=== PATIENT | female | born 1985 | race Caucasian/White ===

== ENCOUNTER 2022-12-31 11:25 | Emergency (ER) | payer OTHER, SELFPAY ==
--- NOTE | ~2022-12-31 | XR_ITS ---
EXAMINATION: XR SHOULDER, LEFT CLINICAL INFORMATION: Left shoulder pain. COMPARISON: None TECHNIQUE: AP, Grashey, and scapular Y views of the left shoulder. FINDINGS: No acute fracture or dislocation. No joint space narrowing or marginal osteophytes. No osseous erosion. No abnormal soft tissue calcification. XR/XR shoulder LT min 2V IMPRESSION: Unremarkable examination.
--- NOTE | 2022-12-31 11:30 | ED.NECK ---
HPI - Neck Pain/Injury General Chief Complaint: Extremity Injury, Upper <RAVI Cuenca Last Filed: 12/31/22 11:51> Stated Complaint: L shoulder pain no inj <ARVI Cuenca - Last Filed: 12/31/22 11:51> Time Seen by Provider: 12/31/22 11:49 <RAVI Cuenca Last Filed: 12/31/22 11:51> History of Present Illness HPI Narrative: Patient complains of left trapezius left shoulder and left-sided neck pain radiating down to her fingers intermittently with tingling and pain but no loss of sensation no muscle weakness, no trauma associated no chest pain no shortness of breath no dizziness or weakness no fainting or feeling faint, , no changes to bowel or bladder no dizziness no weakness no headache <RAVI Osman Last Filed: 01/02/23 11:44> Related Data Home Medications: Previous Rx's Medication Instructions Recorded acetaminophen 500 mg capsule 1,000 mg PO Q8H PRN pain #30 caps 12/31/22 cyclobenzaprine 5 mg tablet 5 mg PO TID PRN muscle spasm #10 12/31/22 tabs ibuprofen 600 mg tablet 600 mg PO Q6H PRN pain #20 tabs 12/31/22 oxycodone 5 mg tablet 5 mg PO Q6H PRN pain #10 tabs 12/31/22 prednisone 20 mg tablet 60 mg PO DAILY 4 days #12 tabs 12/31/22 <RAVI Cuenca - Last Filed: 12/31/22 11:51> Allergies/Adverse Reactions: Allergies Allergy/AdvReac Type Severity Reaction Status Date / Time No Known Allergies Allergy Verified 12/31/22 11:31 <RAVI Cuenca Last Filed: 12/31/22 11:51> FOR[facility], LATER [facility] Past Medical History Source: nursing notes reviewed <RAVI Osman - Last Filed: 01/02/23 11:44> Social History Social History: Social History Advance Directives: No Advance Directives Information Provided: No <RAVI Cuenca Last Filed: 12/31/22 11:51> Physical Exam Vital Signs: Vital Signs: Last Vital Signs Temp 98.2 F 12/31/22 11:31 Pulse 82 12/31/22 11:31 Resp 16 12/31/22 11:31 BP 144/79 H 12/31/22 11:31 Pulse Ox 98 12/31/22 11:31 O2 Del Method 12/31/22 11:31 BMI result Body Mass Index 24.2 <RAVI Cuenca - Last Filed: 12/31/22 11:51> Vital Signs: Last Vital Signs Temp 98.2 F 12/31/22 11:31 Pulse 82 12/31/22 11:31 Resp 16 12/31/22 11:31 BP 144/79 H 12/31/22 11:31 Pulse Ox 98 12/31/22 11:31 O2 Del Method 12/31/22 11:31 BMI result Body Mass Index 24.2 <RAVI Osman - Last Filed: 01/02/23 11:44> General appearance is no acute distress comfortable cooperative Head is normocephalic atraumatic The neck had left-sided lateral neck soft tissue tenderness, no focal bony tenderness, there was full range of motion, but some discomfort with lateral motion The left trapezius was very tender The chest was clear to auscultation bilateral, no chest wall tenderness Heart no murmur Lungs were clear to auscultation bilateral with full symmetric equal breath sounds, no respiratory distress Abdomen soft nontender The back there was some left posterior trapezius tenderness, other was back was normal range of motion, skin was normal, no bony tenderness Extremities full range of motion x4 Skin no rash Neuro no focal motor sensory deficits, 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 Denies injury/trauma or fall. Denies CP/SOB or weakness +L trapezius muscle ttp on exam with neck stiffness, no midline ttp. NV intact distally. No meningeal signs Patient will need pain control <RAVI Cuenca - Last Filed: 12/31/22 11:51> RME--37yo F w/no sig PMHx c/o L neck pain x2.5 weeks. Denies injury/trauma or fall. Denies CP/SOB or weakness +L trapezius muscle ttp on exam with neck stiffness, no midline ttp. NV intact distally. No meningeal signs Patient will need pain control Patient had left shoulder x-ray which was negative Symptoms are likely from pinched nerve in the neck and she is started on prednisone and analgesics and will follow with her doctor, she had no focal neurologic deficit no change to bowel or bladder and was discharged ambulating easily and comfortable <RAVI Osman - Last Filed: 01/02/23 11:44> Medications Administered Discontinued Medications Generic Name Dose Route Start Last Admin Trade Name Freq PRN Reason Stop Dose Admin Ibuprofen 600 mg 12/31/22 14:08 12/31/22 14:20 Ibuprofen 600 Mg Tablet PO 12/31/22 14:09 600 mg ONCE ONE Administration Prednisone 60 mg 12/31/22 14:08 12/31/22 14:20 Prednisone 20 Mg Tablet PO 12/31/22 14:09 60 mg ONCE ONE Administration <RAVI Cuenca - Last Filed: 12/31/22 11:51> Medications Administered Discontinued Medications Generic Name Dose Route Start Last Admin Trade Name Freq PRN Reason Stop Dose Admin Ibuprofen 600 mg 12/31/22 14:08 12/31/22 14:20 Ibuprofen 600 Mg Tablet PO 12/31/22 14:09 600 mg ONCE ONE Administration Prednisone 60 mg 12/31/22 14:08 12/31/22 14:20 Prednisone 20 Mg Tablet PO 12/31/22 14:09 60 mg ONCE ONE Administration <RAVI Osman - Last Filed: 01/02/23 11:44> Discharge Plan Discharge Clinical Impression: Cervical radiculopathy <RAVI Cuenca - Last Filed: 12/31/22 11:51> Patient Disposition: Home, Self-Care <RAVI Cuenca - Last Filed: 12/31/22 11:51> Additional Instructions: X-ray of the shoulder was totally normal The pain is likely from a pinched nerve on the left side of her neck which sometimes sense pain and tingling down her arm Prednisone, steroid, sometimes reduce inflammation around the nerve and improves the pain Follow with primary doctor for possible physical therapy or MRI in the future if it does not get better Return any time any worse condition or any concerns <RAVI Cuenca - Last Filed: 12/31/22 11:51> Prescriptions: New prednisone 20 mg tablet 60 mg PO DAILY 4 Days Qty: 12 0RF ibuprofen 600 mg tablet 600 mg PO Q6H PRN (Reason: pain) Qty: 20 0RF acetaminophen 500 mg capsule 1,000 mg PO Q8H PRN (Reason: pain) Qty: 30 0RF oxycodone 5 mg tablet 5 mg PO Q6H PRN (Reason: pain) Qty: 10 0RF Rx Instructions: Partial Fill upon patient request. cyclobenzaprine 5 mg tablet 5 mg PO TID PRN (Reason: muscle spasm) Qty: 10 0RF <RAVI Cuenca - Last Filed: 12/31/22 11:51> Interventions: ED Discharge Assessment Last Done: 12/31/22 14:21 <RAVI Cuenca - Last Filed: 12/31/22 11:51> Discharge Date/Time: 12/31/22 14:22 <RAVI Cuenca - Last Filed: 12/31/22 11:51>
[2022-12-31 11:31] VITALS: BP 144/79; PULSE 82; RESP 16; TEMP 36.8; O2SAT 98; BMI 24.2
--- NOTE | 2022-12-31 11:44 | PC.NURSE ---
pt presents with pain in left shoulder, no injury per pt wa dx with CRPS in 2010 and noticed pain in her shoulder while driving. CMS in tact. a&o x4 NAD
[2022-12-31] MEDS: Ibuprofen 600 MG TABLET PO (14:20)
[2022-12-31] MEDS: predniSONE 20 MG TABLET 60 MG PO (14:20)
== END 2022-12-31 14:22 | disposition home or self-care (01) ==
PROVIDERS: Emergency Provider Emergency Medicine
DX: M54.12 Radiculopathy, cervical region (principal); M25.512 Pain in left shoulder
CPT/HCPCS: 73030; 99283

== ENCOUNTER 2023-06-22 16:53 | Emergency (ER) | payer OTHER, SELFPAY ==
--- NOTE | 2023-06-22 | ECG_ITS ---
Test Reason : ?STROKE Blood Pressure : / mmHG Vent. Rate : 066 BPM Atrial Rate : 066 BPM P-R Int : 158 ms QRS Dur : 090 ms QT Int : 388 ms P-R-T Axes : 050 021 013 degrees QTc Int : 406 ms Normal sinus rhythm Low voltage QRS Borderline ECG When compared with ECG of 20-NOV-2008 10:02, Premature ventricular complexes are no longer Present Referred By: Generic ED Physician Electronically Signed By:NIGEL MADRID
--- NOTE | ~2023-06-22 | CT_ITS ---
EXAMINATION: CT HEAD WITHOUT CONTRAST CLINICAL INFORMATION: Dizziness. Syncope. Prior CVA. COMPARISON: None available. TECHNIQUE: Contiguous axial imaging was performed from the skull base to vertex without intravenous administration of contrast. This CT examination was performed using dose optimization techniques as appropriate, variously including the following: *Automated exposure control *Adjustment of mA and/or kV according to patient size (this includes techniques or standardized protocols for targeted exams where dose is matched to indication/reason for exam; i.e. extremities or head) *Use of iterative reconstruction technique DLP: 589 mGy-cm FINDINGS: No acute intracranial hemorrhage. No mass effect or midline shift. No parenchymal lesion. The oquendo-white differentiation is maintained. No extra-axial fluid collection. The ventricles and sulci are unremarkable. The basal cisterns are patent. The calvarium is intact. The visualized paranasal sinuses and mastoid air cells are clear. CT/CT head/brain wo IV con IMPRESSION: No acute intracranial hemorrhage or mass effect.
[2023-06-22 16:56] VITALS: BP 116/67; PULSE 63; O2SAT 100
[2023-06-22 17:06] VITALS: BP 100/62; PULSE 96; RESP 16; TEMP 36.8; O2SAT 96; BMI 33.2
--- OUTSIDE RECORDS SUMMARY | 2023-06-22 17:18 | XMS_ITS | Continuity of Care Document ---
Author Name Unknown Organization [facility] ter Address [address] [place] [id number]- Care Team Providers Care Classified Advertising Manager Name Role Phone Petrona Mosher MD Primary Care Physician Encounter [facility] Date(s): 10/12/21 - 11/21/[address] [id number] Attending Physician: Dewey Ordaz MD Admitting Physician: Dewey Ordaz MD Referring Physician: Severino Red MD Allergies, Adverse Reactions, Alerts Substance Reaction Severity Status cephalexin 1 headaches,memory loss Active lamoTRIgine memory loss FINCH Active 1rash Immunizations Given and Recorded Vaccine Date Status Refusal Reason influenza virus vaccine, inactivated 08/13/21 Give n influenza virus vaccine, inactivated 01/17/16 Give n influenza virus vaccine, inactivated 07/20/13 Give n influenza virus vaccine, inactivated 1 09/20/12 Gi valeria influenza virus vaccine, inactivated 2 08/13/11 Gi valeria influenza virus vaccine, inactivated 3 08/30/08 Gi valeria SARS-CoV-2 (COVID-19) mRNA BNT-162b2 vac 03/12/21 Recorded SARS-CoV-2 (COVID-19) mRNA BNT-162b2 vac 02/19/21 Recorded pneumococcal 23-valent vaccine 02/20/14 Given hepatitis B adult vaccine 4 06/14/13 Given hepatitis B adult vaccine 5 12/10/12 Given hepatitis B adult vaccine 6 10/01/12 Given tetanus/diphtheria/pertussis, acel(Tdap) 7 08/13/11 Given Human Papillomavirus Vaccine 8 11/21/08 Given 1Admin Note: VIS 04/19/12 2Admin Note: VIS given 05/13/11 3Admin Note: VIS GIVEN 4Admin Note: VIS 11/30 5Admin Note: VIS 11/30 6Admin Note: VIS GIVEN 11/20/2011 7Admin Note: VIS given, 08/2008 8Admin Note: VIS Medications Acetaminophen = 500 mg, By Mouth, Every 6 hours, PRN as needed for fever, 0 Refills, Acute, 12/07/19 8:11:00 EST Start Date: 12/07/19 Status: Ordered bed pads disposable bed pads disposable, See Instructions, # 150 each, Refills 11, Tot. Refills 11, Maintenance, use for urinary incontinence five times daily d/t paralysis, spinal cord disease, 04/05/21 9:57:00 EDT, Supply Start Date: 04/05/21 Status: Ordered Cannabis (Schedule I Substance) 0 Refills, Maintenance, 07/25/20 14:34:00 EDT Start Date: 07/25/20 Status: Ordered Controlled substance agreement Controlled substance agreement, See Instructions, # 1 each, Refills 0, Tot. Refills 0, Maintenance,controlled substance agreement signed 12.13.2019; preferred pharm: [facility], 12/13/19 13:32:00 EST, Compound, 166, cm, 12/13/19 12:42:00 EST, He... Start Date: 12/13/19 Status: Ordered FLUoxetine 20 mg oral capsule 20 mg, 1, capsule, By Mouth, Daily, # 30 capsule, Refills 0, Maintenance, 01/11/21 15:03:00 EDT, Partial fill upon patient request if the prescription is for a schedule II opioid drug. Start Date: 01/11/21 Status: Ordered gabapentin 600 mg oral tablet 2 tablet = 1,200 mg, By Mouth, 3 times a day, # 180 tablet, 5 Refills, Maintenance, 08/06/21 8:30:00 EDT, Tablet, [id number], Partial fill upon patient request if the prescription is for aschedule II opioid drug., 150, cm, 07/23/21 22:44:0... Start Date: 08/06/21 Stop Date: 02/02/22 Status: Ordered lidocaine 5% topical ointment 1 application, Topically, 3 times a day, # 50 Gm, 2 Refills, Maintenance, 09/19/21 14:33:00 EST, Ointment, [id number], Partial fill upon patient request if the prescription is for a schedule II opioid drug., 1 application Topically 3 times... Start Date: 09/19/21 Status: Ordered methadone 5 mg oral tablet See Instructions, 1 tab PO in AM 2 tabs in Afternoon and 1 tab @ HS for pain, # 112 tablet, 0 Refills, Maintenance, 11/01/21 11:10:00 EST, Tablet, [id number], Partial fill upon patient request., 11/02/21, 150, cm, 10/02/21 13:09:00 EST, Hei... Start Date: 11/01/21 Status: Ordered naloxone 4 mg/0.1 mL nasal spray = 4 mg, Naris, Left, Once, may repeat every 2 to 3 minutes until patient responds, # 2 each, 0 Refills, Soft Stop, 12/13/19 13:32:00 EST, [id number], 166, cm, 12/13/19 12:42:00 EST, Height, 82.6, kg, 07/05/18 18:39:00 EDT, Dry Weight Start Date: 12/13/19 Status: Ordered Oxybutynin = 15 mg, By Mouth, Daily, 0 Refills, Maintenance, 11/09/20 12:52:00 EST, Partial fill upon patient request if the prescription is for a schedule II opioid drug. Start Date: 11/09/20 Status: Ordered Pantiliners Pantiliners, See Instructions, # 240 each, Refills 11, Tot. Refills 11, Maintenance, Max 8 per day;Dx: urinary incontinence; R32, 08/23/21 10:39:00 EDT, Supply Start Date: 08/23/21 Status: Ordered raised toilet seat raised toilet seat, See Instructions, # 1 each, Refills 0, Tot. Refills 0, Maintenance, use to enable ADLs d/t central pain syndrome, paralysis,peripheral neuropathic pain, spinal cord disease, 04/05/21 9:56:00 EDT, Supply Start Date: 04/05/21 Status: Ordered Shower Bar See Instructions, # 1 each, Maintenance, use to enable ADLs d/t central pain syndrome, paralysis,peripheral neuropathic pain, spinal cord disease, 04/05/21 9:55:00 EDT, Supply Start Date: 04/05/21 Status: Ordered Shower Chair Shower Chair, See Instructions, # 1 each, Refills 0, Tot. Refills 0, Maintenance, Height: 150cm, Weight: 75kg; Dx: Myelopathy, Leg weakness, Leg pain; G95.9, R53.1, M79.606; Lifetime need., 08/23/21 10:33:00 EDT, Supply Start Date: 08/23/21 Status: Ordered Shower Chair See Instructions, # 1 each, Maintenance, use to enable ADLs d/t central pain syndrome, paralysis,peripheral neuropathic pain, spinal cord disease, 04/05/21 9:55:00 EDT, Supply Start Date: 04/05/21 Status: Ordered soft brace for left foot drop soft brace for left foot drop, See Instructions, # 1 each, Refills 0, Tot. Refills 0, Maintenance, soft brace for left foot drop, 01/24/21 15:19:00 EDT, Supply, 149.9, cm, 01/18/21 8:52:00 EDT, Height, 68.3, kg, 01/18/21 8:52:00 EDT, Dry Weight Start Date: 01/24/21 Status: Ordered TENS unit TENS unit, See Instructions, # 1 each, Refills 0, Tot. Refills 0, Maintenance, chronic, severe low back pain ICD M54, 09/19/21 14:45:00 EST, Supply Start Date: 09/19/21 Status: Ordered tiZANidine 2 mg oral capsule 1 capsule, By Mouth, 3 times a day, PRN NEEDED FOR MUSCLE SPASM, # 90 capsule, 5 Refills, Maintenance, 04/08/21 11:01:00 EDT, [id number], 149.9, cm, 03/27/21 13:01:00 EDT, Height, 68.3, kg, 01/18/21 8:52:00 EDT, Dry Weight Start Date: 04/08/21 Status: Ordered Problem List Condition Effective Dates Status Health Status Inform ant Asthma(Confirmed) Active Central pain syndrome(Confirmed) Active Chronic headache(Confirmed) Active Contracture of joint of fing er of left hand(Confirmed) 1 Active Dysmenorrhea(Confirmed) Active Dyspareunia(Confirmed) Active Limitation due to disability(Confirmed) 2, 3 Active Drug or alcohol risk assessm ent or counseling(Confirmed) 4 Active H. pylori(Confirmed) 07/06/08 Active Irritable bowel syndrome (IBS)(Confirmed) Active Low back pain(Confirmed) Active Anxiety and depression(Confirmed) Active Depression, moderately sever e recurrent major(Confirmed) Active Nicotine dependence, uncomplicated(Confirmed) Active Obese class I(Confirmed) Active Obstructive sleep apnea, mild(Confirmed) 2015 Active Lower extremity pain(Confirmed) Active Spontanous paralysis of both legs(Confirmed) Active Patent foramen ovale(Confirmed) 06/06/08 Active *BHN/CCA/CP-[facility]-[phone]/Health [facility], active care coordination(Confirmed) Active Neuropathic pain of lower extremity(Confirmed) Active Posttraumatic stress disorder(Confirmed) Active 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, Persistent moderate(Confirmed) Active Myelopathy(Confirmed) Active Syncope(Confirmed) 5 06/06/08 Active Back pain, mid(Confirmed) Active Urinary incontinence(Confirmed) Active Vitamin D deficiency(Confirmed) Active 14th and 5th digit, s/p capsulotomy and left carpal tunnel release 2updated Oswestry Disability Index: 56% ( severe disability ) on 10/26/18; updated [place] Back Pain Scale: 77 on 10/27/18 3initial Oswestry Disability Index: 76% ( crippled ) on 07/09/17; initial [place] Back Pain Scale: 84 on 07/09/17; initial [place]: 14 on 07/09/17 4SOAPP-R: 21 on 07/09/17 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 Sex Female Medical Equipment Implanted Date:01/18/21Target Site:Vagina Description Quantity MRI Company Model SLING SUSPEND FASCIA EIRN 2X 7 - COLO ([id number]) 1 [employer] Jeff Unknown JESSEE:No Information Assigning Authority: FDA
--- OUTSIDE RECORDS SUMMARY | 2023-06-22 17:18 | XMS_ITS | Continuity of Care Document ---
Author Name Unknown Organization [facility] Address [address] [facility], [address], [address] [place] [id number]- Care Team Providers Care Aircraft Dispatcher Name Role Phone Malik FRANCIS, Shanon Arshad Primary Care Physician Encounter [facility] Date(s): 03/19/21 - 04/18/21 [facility] [address], [address], [address] [place] [id number]- Allergies, Adverse Reactions, Alerts Substance Reaction Severity Status cephalexin 1 headaches,memory loss Active lamoTRIgine memory loss FINCH Active 1rash Immunizations Given and Recorded Vaccine Date Status Refusal Reason influenza virus vaccine, inactivated 01/17/16 Give n influenza virus vaccine, inactivated 07/20/13 Give n influenza virus vaccine, inactivated 1 09/20/12 Gi valeria influenza virus vaccine, inactivated 2 08/13/11 Gi valeria influenza virus vaccine, inactivated 3 08/30/08 Gi valeria pneumococcal 23-valent vaccine 02/20/14 Given hepatitis B [...] EST, He... Start Date: 12/13/19 Status: Ordered ergocalciferol 47568 iu oral capsule 50,000 International_Units, 1, capsule, By Mouth, Every week, for 30 days, # 5 capsule, Refills 1, Tot. Refills 1, Acute 04/20/21 12:17:00 EDT, 02/19/21 12:17:00 EDT, Route to Pharmacy Electronically, [id number], Partial fill upon patient r... Start Date: 02/19/21 Stop Date: 04/20/21 Status: Ordered Flovent HFA 110 mcg/inh inhalation aerosol 2 puffs, Inhalation, 2 times a day, # 12 Gm, 5 Refills, Maintenance, 11/08/15 9:56:17, Aerosol, 2 puffs Inhalation 2 times a day Start Date: 11/08/15 Status: Ordered FLUoxetine 20 mg oral capsule 20 mg, 1, capsule, By Mouth, Daily, # 30 capsule, Refills 0, Maintenance, 01/11/21 15:03:00 EDT, Partial fill upon patient request if the prescription is for a schedule II opioid drug. Start Date: 01/11/21 Status: Ordered gabapentin 300 mg oral capsule 3, capsule, By Mouth, 3 times a day, FOLLOW PREVIOUSLY GIVEN INSTRUCTIONS FOR INCREASING THE DOSE.,# 270 capsule, Refills 1, Tot. Refills 0, Maintenance, 04/12/21 15:07:00 EDT, Route to Pharmacy Electronically, [id number], 149.9, cm... Start Date: 04/12/21 Status: Ordered methadone 5 mg oral tablet See Instructions, 1 tab PO in AM 2 tabs in Afternoon and 1 tab @ HS for pain, # 112 tablet, 0 Refills, Maintenance, 03/29/21 9:45:00 EDT, Tablet, [id number], Partial fill upon patient request., 149.9, cm, 03/27/21 13:01:00 EDT, Height, 68.3... Start Date: 03/29/21 Status: Ordered naloxone 4 mg/0.1 mL nasal spray = 4 mg, Naris, Left, Once, may repeat every 2 to 3 minutes until patient responds, # 2 each, 0 Refills, Soft Stop, 12/13/19 13:32:00 EST, [id number], 166, cm, 12/13/19 12:42:00 EST, Height, 82.6, kg, 07/05/18 18:39:00 EDT, Dry Weight Start Date: 12/13/19 Status: Ordered Oxybutynin = 15 mg, By Mouth, Daily, 0 Refills, Maintenance, 11/09/20 12:52:00 EST, Partial fill upon patient request if the prescription is for a schedule II opioid drug. Start Date: 11/09/20 Status: Ordered ProAir HFA 90 mcg/inh inhalation aerosol with adapter 2, puffs, Inhalation, Every 4 hours, PRN, # 8.5 Gm, Refills 0, Maintenance, 05/30/16 15:04:51, Aerosol Start Date: 05/30/16 Status: Ordered raised toilet seat raised toilet [...] Start Date: 04/05/21 Status: Ordered Shower Chair See Instructions, # [...] Dry Weight Start Date: 01/24/21 Status: Ordered tiZANidine 2 mg oral capsule 1 capsule, By Mouth, 3 times a day, PRN NEEDED FOR MUSCLE SPASM, # 90 capsule, 5 Refills, Maintenance, 04/08/21 11:01:00 EDT, [id number], 149.9, cm, 03/27/21 13:01:00 EDT, Height, 68.3, [...] recurrent major(Confirmed) Active Nicotine dependence, uncomplicated(Confirmed) Active Obstructive sleep apnea, mild(Confirmed) 2016 Active Lower extremity pain(Confirmed) Active Spontanous paralysis of both legs(Confirmed) Active Patent foramen ovale(Confirmed) 06/06/08 Active *BHN/CCA/CP-[facility]-[phone]/Health longterm, active care coordination(Confirmed) Active Neuropathic pain of [...] ( severe disability ) on 10/26/18; updated [place] Back Pain Scale: 77 on 10/27/18 3initial Oswestry Disability Index: 76% ( crippled ) on 07/09/17; initial [place] Back Pain Scale: 84 on 07/09/17; initial [place]: 14 on 07/09/17 4SOAPP-R: 21 on 07/09/17 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 Sex Female Medical Equipment Implanted Date:01/18/21Target Site:Vagina Description Quantity MRI Company Model SLING SUSPEND FASCIA ERIN 2X 7 - COLO ([id number]) 1 [employer] Jeff Unknown JESSEE:No Information Assigning Authority: FDA
--- OUTSIDE RECORDS SUMMARY | 2023-06-22 17:18 | XMS_ITS | Continuity of Care Document ---
Author Name Unknown Organization [facility] Address [address] [place] [address]- Care Team Providers Care Home Economics Teacher Name Role Phone Shanon Gan MD Primary Care Physician Encounter [facility] [place](s): 02/23/20 - 04/18/20 [facility] [address] [place] [address]- [facility] Attending Physician: Not on Staff, Attending MD Referring Physician: Shanon Gan MD Allergies, Adverse Reactions, Alerts Substance Reaction Severity Status cephalexin 1 Active lamoTRIgine FINCH Active 1rash Immunizations Given and Recorded [...] 8:11:00 EST Start Date: 12/07/19 Status: Ordered Cannabis (Schedule I Substance) has state certificate, 0 Refills, Maintenance, 10/26/18 12:48:34 EST Start Date: 10/26/18 Status: Ordered Controlled substance agreement Controlled substance agreement, See Instructions, # 1 each, Refills 0, Tot. Refills 0, Maintenance,controlled substance agreement signed 12.13.2019; preferred pharm: [facility], 12/13/19 13:32:00 EST, Compound, 166, cm, 12/13/19 12:42:00 EST, He... Start Date: 12/13/19 Status: Ordered Flovent HFA 110 mcg/inh inhalation aerosol 2 puffs, Inhalation, 2 times a day, # 12 Gm, 5 Refills, Maintenance, 11/08/15 9:56:17, Aerosol, 2 puffs Inhalation 2 times a day Start Date: 11/08/15 Status: Ordered methadone 5 mg oral tablet 1 tablet = 5 mg, By Mouth, Every 8 hours, intractable pain, # 84 tablet, 0 Refills, Maintenance, 03/27/20 13:39:00 EDT, Tablet, [facility], Partial fill upon patient request., 166, cm, 12/13/19 12:42:00 EST, Height, 82.6, kg, 07/05/18 18:39... Start Date: 03/27/20 Stop Date: 04/24/20 Status: Ordered naloxone 4 mg/0.1 mL nasal spray = 4 mg, Naris, Left, Once, may repeat every 2 to 3 minutes until patient responds, # 2 each, 0 Refills, Soft Stop, 12/13/19 13:32:00 EST, [facility], 166, cm, 12/13/19 12:42:00 EST, Height, 82.6, kg, 07/05/18 18:39:00 EDT, Dry Weight Start Date: 12/13/19 Status: Ordered ProAir HFA 90 mcg/inh inhalation aerosol with adapter 2, puffs, Inhalation, Every 4 hours, PRN, # 8.5 Gm, Refills 0, Maintenance, 05/30/16 15:04:51, Aerosol Start Date: 05/30/16 Status: Ordered Sacral Stimulator Sacral Stimulator, Refills 0, Maintenance, medtronic, 07/09/17 9:32:51, Compound Start Date: 07/09/17 Status: Ordered Problem List Condition Effective Dates [...] back pain(Confirmed) Active Anxiety and depression(Confirmed) Active Lower extremity pain(Confirmed) Active Spontanous paralysis of both legs(Confirmed) Active Patent foramen ovale(Confirmed) 06/06/08 Active *BHN/CCA/CP-[facility]-[phone]/Health long term, active care coordination(Confirmed) Active Neuropathic pain of lower extremity(Confirmed) Active Posttraumatic stress disorder(Confirmed) Active 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) Active Syncope(Confirmed) 06/06/08 Active Mid back pain(Confirmed) Active Urinary incontinence(Confirmed) Active 14th and 5th digit, s/p capsulotomy and left carpal tunnel release 2updated Oswestry Disability Index: 56% ( severe disability ) on 10/26/18; updated [place] Back Pain Scale: 77 on 10/27/18 3initial Oswestry Disability Index: 76% ( crippled ) on 07/09/17; initial [place] Back Pain Scale: 84 on 07/09/17; initial [place]: 14 on 07/09/17 4SOAPP-R: 21 on 07/09/17 Social History Social History Type Response Tobacco Use: 4 or less cigar ettes(less than 1/4 pack)/day in last 30 days. Sex Female
--- OUTSIDE RECORDS SUMMARY | 2023-06-22 17:18 | XMS_ITS | Continuity of Care Document ---
Author Name Unknown Organization [facility] Address [address] [place] [address]- Care Team Providers Care Middle Stitcher Name Role Phone Petrona Mosher MD Primary Care Physician [phone] Encounter [facility] [place] Date(s): 10/31/21 - 12/06/[address] [address] Attending Physician: Maritza Kay NP Admitting Physician: Maritza Kay NP Referring Physician: Maritza Kay NP Allergies, Adverse Reactions, Alerts Substance Reaction Severity [...] 5 Refills, Maintenance, 08/06/21 8:30:00 EDT, Tablet, [facility], Partial fill upon patient request if the prescription is for aschedule II opioid drug., 150, cm, 07/23/21 22:44:0... Start Date: 08/06/21 Stop Date: 02/02/22 Status: Ordered lidocaine 5% topical ointment 1 application, Topically, 3 times a day, # 50 Gm, 2 Refills, Maintenance, 09/19/21 14:33:00 EST, Ointment, [facility], Partial fill upon patient request if the prescription is for a schedule II opioid drug., 1 application Topically 3 times... Start Date: 09/19/21 Status: Ordered methadone 5 mg oral tablet See Instructions, 1 tab PO in AM 2 tabs in Afternoon and 1 tab @ HS for pain, # 112 tablet, 0 Refills, Maintenance, 11/29/21 10:02:00 EST, Tablet, [facility], Partial fill upon patient request., 12/02/21, 150, cm, 11/25/21 9:27:00 EST, [place]... Start Date: 11/29/21 Status: Ordered naloxone 4 mg/0.1 mL nasal spray = 4 mg, Naris, Left, Once, may repeat every 2 to 3 minutes until patient responds, # 2 each, 0 Refills, Soft Stop, 12/13/19 13:32:00 EST, [facility], 166, cm, 12/13/19 12:42:00 EST, [...] a day, PRN NEEDED FOR MUSCLE SPASM, 90 day supply. Further refills through PCP or Pain Management., # 270 capsule, 1 Refills, Maintenance, 12/03/21 9:05:00 EST, [facility], 150, cm, 11/25/21 9:27:00 EST, Heig... 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 pylori(Confirmed) 07/06/08 Active Irritable bowel syndrome (IBS)(Confirmed) Active Low back pain(Confirmed) Active Anxiety and depression(Confirmed) Active Depression, moderately sever e recurrent major(Confirmed) Active Nicotine dependence, uncomplicated(Confirmed) Active Obese class I(Confirmed) Active Obstructive sleep apnea, mild(Confirmed) 2015 Active Lower extremity pain(Confirmed) Active Spontanous paralysis of both legs(Confirmed) Active Patent foramen ovale(Confirmed) 06/06/08 Active *BHN/CCA/CP-Xavier [facility]-[phone]/Health fdc, active care coordination(Confirmed) Active Neuropathic pain of lower extremity(Confirmed) Active Posttraumatic stress disorder(Confirmed) Active 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, Persistent moderate(Confirmed) Active Myelopathy(Confirmed) Active Syncope(Confirmed) 6 06/06/08 Active Back pain, mid(Confirmed) Active Urinary incontinence(Confirmed) Active Vitamin D deficiency(Confirmed) Active 14th and 5th digit, s/p capsulotomy and left carpal tunnel release 2updated Oswestry Disability Index: 72% ( crippled ) on 11/25/21; updated [place] Back Pain Scale: 87 on 11/25/21 3updated Oswestry Disability Index: 56% ( severe disability ) on 10/26/18; updated [place] Back Pain Scale: 77 on 10/27/18 4initial Oswestry Disability Index: 76% ( crippled ) on 07/09/17; initial [place] Back Pain Scale: 84 on 07/09/17; initial [place]: 14 on 07/09/17 5SOAPP-R: 21 on 07/09/17 6cardiology 2016 cited known PVCs Social History Social History Type Response Tobacco Use: 4 or less cigar ettes(less than 1/4 pack)/day in last 30 days. Sex Female Medical Equipment Implanted Date:01/18/21Target Site:Vagina Description Quantity MRI Company Model SLING SUSPEND FASCIA ERIN 2X 7 - COLO ([id number]) 1 [employer]oplast Jeff Unknown JESSEE:No Information Assigning Authority: FDA
--- OUTSIDE RECORDS SUMMARY | 2023-06-22 17:18 | XMS_ITS | Continuity of Care Document ---
Author Name Unknown Organization [facility] Address [address] [place] [address]- Care Team Providers Care Quality Assurance Assessor Name Role Phone Malik FRANCIS, Shanon Arshad Primary Care Physician ( [phone] Encounter [facility] Date(s): 08/28/20 - 09/28/20 [facility] [address] [place] [address] Attending Physician: Aries Neely MD Admitting Physician: Aries Neely MD Referring Physician: Shanon Gan MD Allergies, Adverse Reactions, Alerts Substance Reaction Severity Status cephalexin 1 headaches,memory loss Active lamoTRIgine memory loss FINCH Active 1rash Immunizations Given and Recorded Vaccine Date Status Refusal Reason influenza virus vaccine, inactivated 01/17/16 Give n influenza virus vaccine, inactivated 07/20/13 Give n influenza virus vaccine, inactivated 1 09/20/12 Gi valeria influenza virus vaccine, inactivated 2 08/13/11 Gi valeira influenza virus vaccine, inactivated 3 08/30/08 Gi [...] 12/07/19 Status: Ordered Cannabis (Schedule I Substance) 0 [...] a day Start Date: 11/08/15 Status: Ordered gabapentin 300 mg oral capsule 300 mg, 1, capsule, By Mouth, 3 times a day, # 90 capsule, Refills 4, Tot. Refills 4, Maintenance, 05/15/20 14:07:00 EDT, Route to Pharmacy Electronically, [facility], 149.86, cm, :22:00 EDT, Height, 67.73, kg, 04/19/20 8:54:00 ED... Start Date: 05/15/20 Stop Date: 10/12/20 Status: Ordered methadone 5 mg oral tablet See Instructions, 1 tab PO in AM 2 tabs in Afternoon and 1 tab @ HS for pain, # 112 tablet, 0 Refills, Maintenance, 09/26/20 10:55:00 EST, Tablet, [facility], Partial fill upon patient request. Dose Increase on 06/22/2020 to 4 tabs a day, 149... Start Date: 09/26/20 Status: Ordered naloxone 4 mg/0.1 mL nasal spray = 4 mg, Naris, Left, Once, may repeat every 2 to 3 minutes until patient responds, # 2 each, 0 Refills, Soft Stop, 12/13/19 13:32:00 EST, [facility], 166, cm, 12/13/19 12:42:00 EST, Height, 82.6, kg, 07/05/18 18:39:00 EDT, Dry Weight Start Date: 12/13/19 Status: Ordered ProAir HFA 90 mcg/inh inhalation aerosol with adapter 2, puffs, Inhalation, Every 4 hours, PRN, # 8.5 Gm, Refills 0, Maintenance, 05/30/16 15:04:51, Aerosol Start Date: 05/30/16 Status: Ordered Problem List Condition Effective Dates [...] legs(Confirmed) Active Patent foramen ovale(Confirmed) 06/06/08 Active [phone]/[facility], active care coordination(Confirmed) Active Neuropathic pain of lower extremity(Confirmed) Active Posttraumatic stress disorder(Confirmed) Active 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) Active Myelopathy(Confirmed) Active Syncope(Confirmed) 06/06/08 Active Mid back pain(Confirmed) Active Urinary incontinence(Confirmed) Active 14th and 5th digit, s/p capsulotomy and left carpal tunnel release 2updated Oswestry Disability Index: 56% ( severe disability ) on 10/26/18; updated [place] Back Pain Scale: 77 on 10/27/18 3initial Oswestry Disability Index: 76% ( crippled ) on 07/09/17; initial [place] Back Pain Scale: 84 on 07/09/17; initial [place]: 14 on 07/09/17 4SOAPP-R: 21 on 07/09/17 Social History Social History Type Response Tobacco Use: 4 or less cigar ettes(less than 1/4 pack)/day in last 30 days. Sex Female
--- OUTSIDE RECORDS SUMMARY | 2023-06-22 17:18 | XMS_ITS | Continuity of Care Document ---
Author Name Unknown Organization [facility] Address [address] [place] [id number]- Care Team Providers Care Boring Inspector Name Role Phone Malik FRANCIS, Shanon Primary Care Physician Encounter [facility] Date(s): 03/05/20 - 05/13/[address] [address] [facility] Attending Physician: Charles Brock MD Allergies, Adverse Reactions, Alerts Substance Reaction [...] 8:11:00 EST Start Date: 12/07/19 Status: Ordered Controlled substance agreement Controlled substance [...] pain, # 84 tablet, 0 Refills, Maintenance, 04/24/20 12:36:00 EDT, Tablet, [facility], Partial fill upon patient request., 149.86, cm, 04/19/20 8:54:00 EDT, Height, 67.73, kg, 04/19/20 8:... 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 Syncope(Confirmed) 06/06/08 Active Mid back pain(Confirmed) Active Urinary incontinence(Confirmed) Active 14th and 5th digit, s/p capsulotomy and left carpal tunnel release 2updated Oswestry Disability Index: 56% ( severe disability ) on 10/26/18; updated [place] Back Pain Scale: 77 on 10/27/18 3initial Oswestry Disability Index: 76% ( crippled ) on 07/09/17; initial [place] Back Pain Scale: 84 on 07/09/17; initial [place]: 14 on 07/09/17 4SOAPP-R: 21 on 07/09/17 Social History Social History Type Response Tobacco Use: 4 or less cigar ettes(less than 1/4 pack)/day in last 30 days. Sex Female
--- OUTSIDE RECORDS SUMMARY | 2023-06-22 17:18 | XMS_ITS | Continuity of Care Document ---
Author Name Unknown Organization [facility] Address [address] [place] [address]- Care Team Providers Care Fiberglass Bonding Machine Tender Name Role Phone Malik FRANCIS, Shanon Arshad Primary Care Physician En[facility] [place] Date(s): 12/13/19 - 12/23/19 [facility] [address] [place] [address]- [facility] Attending Physician: Kelsey Cartagena Admitting Physician: AdmKelsey roland Referring Physician: AdmtrKelsey Allergies, Adverse Reactions, Alerts Substance Reaction Severity [...] Mouth, Every 8 hours, intractable pain, # 21 tablet, 0 Refills, Maintenance, 12/23/19 16:48:00 EST, Tablet, [facility], Partial fill upon patient request, 12/23/19, 166, cm, 12/13/19 12:42:00 EST, Height, 82.6, kg, 07/05... 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 Sex Female
--- OUTSIDE RECORDS SUMMARY | 2023-06-22 17:18 | XMS_ITS | Continuity of Care Document ---
Author Name Unknown Organization [facility] Address [address] [place] [address]- Care Team Providers Care Chocolatier Name Role Phone Malik FRANCIS, Shanon Arshad Primary Care Physician [facility] Date(s): 10/04/20 - 11/03/20 [facility] [address] [place] [id number] Allergies, Adverse Reactions, Alerts Substance Reaction Severity [...] day Start Date: 11/08/15 Status: Ordered FLUoxetine 10 mg oral capsule 10 mg, 1, capsule, By Mouth, Daily, # 30 capsule, Refills 2, Tot. Refills 2, Maintenance, 10/24/20 14:00:00 EST, Route to Pharmacy Electronically, [facility], Partial fill upon patient request if the prescription is for a schedule II opioid... Start Date: 10/24/20 Status: Ordered gabapentin 300 mg oral capsule 900 mg, 3, capsule, By Mouth, 3 times a day, follow previously given instructions for increasing dose, # 270 capsule, Refills 4, Tot. Refills 4, Maintenance, 10/29/20 15:45:00 EST, Route to Pharmacy Electronically, [facility], replaces prio... Start Date: 10/29/20 Stop Date: 03/28/21 Status: Ordered methadone 5 mg oral tablet See Instructions, 1 tab PO in AM 2 tabs in Afternoon and 1 tab @ HS for pain, # 112 tablet, 0 Refills, Maintenance, 10/29/20 13:13:00 EST, Tablet, [facility], Partial fill upon patient request. Dose Increase on 06/22/2020 to 4 tabs a day, 149... 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 Myelopathy(Confirmed) Active Syncope(Confirmed) 06/06/08 Active Mid back pain(Confirmed) Active Urinary incontinence(Confirmed) Active 14th and 5th digit, s/p capsulotomy and left carpal tunnel release 2updated Oswestry Disability Index: 56% ( severe disability ) on 10/26/18; updated [place] Back Pain Scale: 77 on 10/27/18 3initial Oswestry Disability Index: 76% ( crippled ) on 07/09/17; initial [place] Back Pain Scale: 84 on 07/09/17; initial [place]: 14 on 07/09/17 4SOAPP-R: 21 on 07/09/17 Social History Social History Type Response Tobacco Use: 4 or less cigar ettes(less than 1/4 pack)/day in last 30 days. Sex Female
--- OUTSIDE RECORDS SUMMARY | 2023-06-22 17:18 | XMS_ITS | Continuity of Care Document ---
Author Name Unknown Organization [facility] Address [address] [facility], [address] Floor, [address] [place] [address]- Care Team Providers Care Building Cleaner Name Role Phone Malik FRANCIS, Shanon Arshad Primary Care Physician ( [phone] Encounter [facility] Date(s): 03/04/21 - 04/03/21 [facility] [address], [address] [place] [address]- Attending Physician: Kelsey Cartagena Admitting Physician: Kelsey Cartagena Referring Physician: AdmtrKelsey Allergies, Adverse Reactions, Alerts [...] He... Start Date: 12/13/19 Status: Ordered ergocalciferol 40675 iu oral capsule 50,000 International_Units, 1, capsule, By Mouth, Every week, for 30 days, # 5 capsule, Refills 1, Tot. Refills 1, Acute 04/20/21 12:17:00 EDT, 02/19/21 12:17:00 EDT, Route to Pharmacy Electronically, [facility], Partial fill upon patient r... Start Date: [...] 10/29/20 15:45:00 EST, Route to Pharmacy Electronically, [facility], replaces prio... Start Date: 10/29/20 Stop Date: 03/28/21 Status: Ordered methadone 5 mg oral tablet See Instructions, 1 tab PO in AM 2 tabs in Afternoon and 1 tab @ HS for pain, # 112 tablet, 0 Refills, Maintenance, 03/29/21 9:45:00 EDT, Tablet, [facility], Partial fill upon patient request., 149.9, cm, 03/27/21 13:01:00 EDT, Height, 68.3... Start Date: 03/29/21 Status: Ordered naloxone 4 mg/0.1 mL nasal spray = 4 mg, Naris, Left, Once, may repeat every 2 to 3 minutes until patient responds, # 2 each, 0 Refills, Soft Stop, 12/13/19 13:32:00 EST, [facility], 166, cm, 12/13/19 12:42:00 EST, [...] 15:04:51, Aerosol Start Date: 05/30/16 Status: Ordered soft brace for left foot drop soft brace for left foot drop, See Instructions, # 1 each, Refills 0, Tot. Refills 0, Maintenance, soft brace for left foot drop, 01/24/21 15:19:00 EDT, Supply, 149.9, cm, 01/18/21 8:52:00 EDT, Height, 68.3, kg, 01/18/21 8:52:00 EDT, Dry Weight Start Date: 01/24/21 Status: Ordered tiZANidine 2 mg oral capsule 1 capsule = 2 mg, By Mouth, 3 times a day, PRN as needed for muscle spasm, for 30 days, # 90 capsule, 1 Refills, Hard Stop 04/21/21 15:50:00 EDT, 02/20/21 15:50:00 EDT, Capsule, [facility], Partial fill upon patient request if the prescript... Start Date: 02/20/21 Stop Date: 04/21/21 Status: Ordered tiZANidine 4 mg oral capsule 1 capsule = 4 mg, By Mouth, 3 times a day, # 90 capsule, 5 Refills, Maintenance, 03/04/21 14:18:00 EDT, Capsule, [facility], Partial fill upon patient request if the prescription is for a schedule II opioid drug., 149.9, cm, 03/04/21 13:58:... Start Date: 03/04/21 Stop Date: 08/31/21 Status: Ordered Problem List Condition Effective Dates [...] dependence, uncomplicated(Confirmed) Active Obstructive sleep apnea, mild(Confirmed) 2015 Active Lower extremity pain(Confirmed) Active Spontanous paralysis of both legs(Confirmed) Active Patent foramen ovale(Confirmed) 06/06/08 Active *BHN/CCA/CP-Xavier [facility]-[phone]/Health snf, active care coordination(Confirmed) Active Neuropathic pain of [...] Back Pain Scale: 84 on 07/09/17; initial [place]: 14 on 07/09/17 4SOAPP-R: 21 on 07/09/17 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 Sex Female Medical Equipment Implanted Date:01/18/21Target Site:Vagina Description Quantity MRI Company Model SLING SUSPEND FASCIA ERIN 2X 7 - COLO ([id number]) 1 [employer] Jeff Unknown JESSEE:No Information Assigning Authority: FDA
--- OUTSIDE RECORDS SUMMARY | 2023-06-22 17:18 | XMS_ITS | Continuity of Care Document ---
Author Name Unknown Organization [facility] Address [address] [place] [address]- Care Team Providers Care Cycling Instructor Name Role Phone Nomi FRANCIS, Petrona Primary Care Physician [phone] [facility]counter [facility] Date(s): 08/14/22 - 10/25/22 [facility] [address], [place] [address] Attending Physician: Aries Neely MD Admitting Physician: Aries Neely MD Allergies, Adverse Reactions, Alerts Substance Reaction [...] EDT, Supply Start Date: 04/05/21 Status: Ordered Bedpads See Instructions, # 2 each, Refills 11, Tot. Refills 11, Maintenance, re-usable bed pad for urinaryincontnence d/t paralysis and spinal cord disease, 06/05/22 15:18:00 EDT, Supply Start Date: 06/05/22 Status: Ordered Cannabis (Schedule I Substance) 0 Refills, Maintenance, 07/25/20 14:34:00 EDT Start Date: 07/25/20 Status: Ordered Controlled substance agreement Controlled substance agreement, See Instructions, # 1 each, Refills 0, Tot. Refills 0, Maintenance,controlled substance agreement signed 12.13.2019; preferred pharm: [facility], 12/13/19 13:32:00 EST, Compound, 166, cm, 12/13/19 12:42:00 EST, He... Start Date: 12/13/19 Status: Ordered FLUoxetine 20 mg oral capsule 30 mg, By Mouth, Daily, # 30 capsule, Refills 0, Maintenance, 01/11/21 15:03:00 EDT, Partial fill upon patient request if the prescription is for a schedule II opioid drug. Start Date: 01/11/21 Status: Ordered gabapentin 600 mg oral tablet 2 tablet, By Mouth, 3 times a day, # 180 tablet, 3 Refills, Maintenance, 07/07/22 14:53:00 EDT, [facility], 149.86, cm, 06/24/22 13:07:00 EDT, Height, 69.9, kg, 01/29/22 13:59:00 EDT, Dry Weight Start Date: 07/07/22 Stop Date: 08/06/22 Status: Ordered naloxone 4 mg/0.1 mL nasal spray = 4 mg, Naris, Left, Once, may repeat every 2 to 3 minutes until patient responds, # 2 each, 0 Refills, Soft Stop, 12/13/19 13:32:00 EST, [facility], 166, cm, 12/13/19 12:42:00 EST, Height, 82.6, kg, 07/05/18 18:39:00 EDT, Dry Weight Start Date: 12/13/19 Status: Ordered Pantiliners Pantiliners, See Instructions, # 240 each, Refills 11, Tot. Refills 11, Maintenance, Max 8 per day;Dx: urinary incontinence; R32, 08/23/21 10:39:00 EDT, Supply Start Date: 08/23/21 Status: Ordered ProAir HFA Inhalation, Every 6 hours, 0 Refills, Maintenance, 01/27/22 12:43:00 EDT, Partial fill upon patientrequest if the prescription is for a schedule II opioid drug. Start Date: 01/27/22 Status: Ordered raised toilet seat raised toilet [...] Dry Weight Start Date: 01/24/21 Status: Ordered sulfamethoxazole-trimethoprim 400 mg-80 mg oral tablet TAKE 1 TABLET BY MOUTH TWICE A DAY Start Date: 10/06/22 Status: Ordered TENS unit TENS unit, See [...] capsule, 1 Refills, Maintenance, 12/03/21 9:05:00 EST, [facility], 150, cm, 11/25/21 9:27:00 EST, [place]... Start Date: 12/03/21 Status: Ordered Problem List Condition Confirmation Course Effective Dates Status H ealth Status Informant Asthma Confirmed Active Central pain syndrome Confirmed Active Chronic headache Confirmed Active Contracture of joint of finger of left hand 1 Confirmed Active Dysmenorrhea Confirmed Active Dyspareunia Confirmed Active Limitation due to disability 2, 3, 4 Confirmed Active Drug or alcohol risk assessment or counseling 5 Confirmed Active H. pylori Confirmed 07/06/08 Active Irritable bowel syndrome (IBS) Confirmed Active Low back pain Confirmed Active Anxiety and depression Confirmed Active Depression, moderately severe recurrent major Confirmed Active Nicotine dependence, uncomplicated Confirmed Active Obese class I Confirmed Active Obstructive sleep apnea, mild Confirmed 2016 Active Lower extremity pain Confirmed Active Spontanous paralysis of both legs Confirmed Active Patent foramen ovale Confirmed 06/06/08 Active *BHN/CCA/CP-Xavier Trivedi-[phone]/He alth correction, active care coordination Confirmed Active Neuropathic pain of lower extremity Confirmed Active Posttraumatic stress disorder Confirmed Active Somatic symptom disorder with predominant pain, Persistent moderate Confirmed Active Myelopathy Confirmed Active Syncope 6 Confirmed 06/06/08 Active Back pain, mid Confirmed Active Urinary incontinence Confirmed Active Vitamin D deficiency Confirmed Active 14th and 5th digit, s/p capsulotomy and left carpal tunnel release 2updated Oswestry Disability Index: 72% ( crippled ) on 11/25/21; updated [place] Back Pain Scale: 87 on 11/25/21 3updated Oswestry Disability Index: 56% ( severe disability ) on 10/26/18; updated [place] Back Pain Scale: 77 on 10/27/18 4initial Oswestry Disability Index: 76% ( crippled ) on 07/09/17; initial [place] Back Pain Scale: 84 on 07/09/17; initial [place]: 14 on 07/09/17 5SOAPP-R: 21 on 07/09/17 6cardiology 2016 cited known PVCs Social History Social History Type Response Tobacco Use: 4 or less cigar ettes(less than 1/4 pack)/day in last 30 days. Sex Female Implantable Device List Procedure Provider Procedure Date Device Type Site Insertion Sling Pubovaginal with Fascia Charles Brock MD 01/18/21 Unknown Vagina Device Identifier Serial Number Lot or Batch Number Manufacturing Date Expiration Date Distinct Identification Code MRI Safety Implantable Status Assigning Authority Unknown [id number] Unknown 08/18/24 Unknown Unknown Active Unknown Patient Care team information Care Team Personnel Name: Christie Han RN Position: [facility] RN Member Role: Primary Care Nurse Name: Namoi Vazquez NP Position: [facility] Associate Professional Member Role: Primary Care Nurse Address: Address: [address] [place] [address] Infectious [place], [place] [address] Name: Petrona Mosher MD Position: [facility] Resident Member Role: PCP Address: Address: [address] [facility] [place] [address]- Name: Kelly Hawk RN Position: [facility] OB RN Member Role: Primary Care Nurse Care Team Related Persons Name: DAILY CORONA Address: home [address], [place] Name: DAILY CORONA Address: home [address], [place] Name: DAILY SAAVEDRA Address: home [address] [place] [address] Name: DARRELL PRAKASH Address: home [address], [place] Name: INGA PAGE Name: HOLDEN STALLWORTH Address: [address] [place] [address]
--- OUTSIDE RECORDS SUMMARY | 2023-06-22 17:18 | XMS_ITS | Continuity of Care Document ---
Author Name Unknown Organization [facility] Address [address] [place] [address]- Care Team Providers Care Refrigerator Room Clerk Name Role Phone Nomi FRANCIS, Petrona Primary Care Physician [facility]counter [facility] Date(s): 01/27/22 - 02/26/22 [facility] [address] [place] [id number] Allergies, Adverse Reactions, Alerts Substance Reaction Severity [...] 5 Refills, Maintenance, 08/06/21 8:30:00 EDT, Tablet, [facility], Partial fill upon patient request if the prescription is for aschedule II opioid drug., 150, cm, 07/23/21 22:44:0... Start Date: 08/06/21 Stop Date: 02/02/22 Status: Ordered methadone 5 mg oral tablet See Instructions, 1 tab PO in AM 2 tabs in Afternoon and 1 tab @ HS for pain, # 112 tablet, 0 Refills, Maintenance, 02/26/22 9:52:00 EDT, Tablet, [facility], Partial fill upon patient request., 02/28/22, 149.86, cm, 01/29/22 13:59:00 EDT, H... Start Date: 02/26/22 Status: Ordered naloxone 4 mg/0.1 mL nasal spray = 4 mg, Naris, Left, Once, may repeat every 2 to 3 minutes until patient responds, # 2 each, 0 Refills, Soft Stop, 12/13/19 13:32:00 EST, [facility], 166, cm, 12/13/19 12:42:00 EST, Height, 82.6, kg, 07/05/18 18:39:00 EDT, Dry Weight Start Date: 12/13/19 Status: Ordered nitrofurantoin macrocrystals 100 mg oral capsule 1 capsule = 100 mg, By Mouth, 2 times a day, 0 Refills, Maintenance, 01/27/22 12:45:00 EDT, Partialfill upon patient request if the prescription is for a schedule II opioid drug. Start Date: 01/27/22 Status: Ordered Oxybutynin = 15 mg, By [...] capsule, 1 Refills, Maintenance, 12/03/21 9:05:00 EST, [facility], 150, cm, 11/25/21 9:27:00 EST, [...] Active Patent foramen ovale(Confirmed) 06/06/08 Active *BHN/CCA/CP-Xavier [facility]-[phone]/Health long term, active care coordination(Confirmed) Active Neuropathic [...] 72% ( crippled ) on 11/25/21; updated [place] Back Pain Scale: 87 on 11/25/21 3updated Oswestry Disability Index: 56% ( severe disability ) on 10/26/18; updated [place] Back Pain Scale: 77 on 10/27/18 4initial Oswestry Disability Index: 76% ( crippled ) on 07/09/17; initial [place] Back Pain Scale: 84 on 07/09/17; initial [place]: 14 on 07/09/17 5SOAPP-R: 21 on 07/09/17 6cardiology 2016 cited known PVCs Social History Social History Type Response Tobacco Use: 4 or less cigar ettes(less than 1/4 pack)/day in last 30 days. Sex Female Medical Equipment Implanted Date:01/18/21Target Site:Vagina Description Quantity MRI Company Model SLING SUSPEND FASCIA ERIN 2X 7 - COLO (23-0947) 1 Coloplast Jeff Unknown JESSEE:No Information Assigning Authority: FDA
--- OUTSIDE RECORDS SUMMARY | 2023-06-22 17:18 | XMS_ITS | Continuity of Care Document ---
Author Name Unknown Organization [facility] Address [address] [place] [address]- Care Team Providers Care Joint Finisher Name Role Phone Petrona Mosher MD Primary Care Physician [phone] Encounter [facility] Date(s): 01/02/22 - 02/22/22 [facility] [address] [place] [id number] Attending Physician: Delta Roberts MD Admitting Physician: Delta Roberts MD Allergies, Adverse Reactions, Alerts Substance Reaction [...] 5 Refills, Maintenance, 08/06/21 8:30:00 EDT, Tablet, [facility], Partial fill upon patient request if the prescription is for aschedule II opioid drug., 150, cm, 07/23/21 22:44:0... Start Date: 08/06/21 Stop Date: 02/02/22 Status: Ordered methadone 5 mg oral tablet See Instructions, 1 tab PO in AM 2 tabs in Afternoon and 1 tab @ HS for pain, # 112 tablet, 0 Refills, Maintenance, 01/29/22 8:22:00 EDT, Tablet, [facility], Partial fill upon patient request., 149.86, cm, 04/11/22 12:58:00 EDT, Height, 71.... Start Date: 01/29/22 Status: Ordered naloxone 4 mg/0.1 mL nasal spray = 4 mg, Naris, Left, Once, may repeat every 2 to 3 minutes until patient responds, # 2 each, 0 Refills, Soft Stop, 12/13/19 13:32:00 EST, [facility], 166, cm, 12/13/19 12:42:00 [...] capsule, 1 Refills, Maintenance, 12/03/21 9:05:00 EST, [facility], 150, cm, 11/25/21 9:27:00 [...] Active Patent foramen ovale(Confirmed) 06/06/08 Active *BHN/CCA/CP-Xavier [facility]-[phone]/Health m[facility]p, active care coordination(Confirmed) Active Neuropathic pain of [...] Back Pain Scale: 84 on 07/09/17; initial [place]: 14 on 07/09/17 5SOAPP-R: 21 on 07/09/17 6cardiology 2016 cited known PVCs Social History Social History Type Response Tobacco Use: 4 or less cigar ettes(less than 1/4 pack)/day in last 30 days. Sex Female Medical Equipment Implanted Date:01/18/21Target Site:Vagina Description Quantity MRI Company Model SLING SUSPEND FASCIA ERIN 2X 7 - COLO (19-6018) 1 Coloplast Jeff Unknown JESSEE:No Information Assigning Authority: FDA
--- OUTSIDE RECORDS SUMMARY | 2023-06-22 17:18 | XMS_ITS | Continuity of Care Document ---
Author Name Unknown Organization [facility] Address [address] [place] [address]- Care Team Providers Care Loading Machine Operator Helper Name Role Phone Petrona Mosher MD Primary Care Physician [phone] [facility]counter [facility] Date(s): 02/28/22 - 03/30/22 [facility] [address] [place], [place] [address] Referring Physician: Gisel Chinchilla Allergies, Adverse Reactions, Alerts Substance Reaction Severity [...] day, # 180 tablet, 3 Refills, Maintenance, 02/28/22 16:35:00 EDT, Tablet, [facility]acy #[id number], Partial fill upon patient request if the prescription is for a schedule II opioid drug., 149.86, cm, 01/29/22 13:59:... Start Date: 02/28/22 Stop Date: 06/28/22 Status: Ordered methadone 5 mg oral tablet See Instructions, 1 tab PO in AM 2 tabs in Afternoon and 1 tab @ HS for pain, # 112 tablet, 0 Refills, Maintenance, 03/28/22 16:16:00 EDT, Tablet, [facility]acy #[id number], Partial fill upon patient request., 03/28/22, 149.86, cm, 03/11/22 14:34:00 EDT, Hei... Start Date: 03/28/22 Status: Ordered naloxone 4 mg/0.1 mL nasal spray = 4 mg, Naris, Left, Once, may repeat every 2 to 3 minutes until patient responds, # 2 each, 0 Refills, Soft Stop, 12/13/19 13:32:00 EST, [facility], 166, cm, 12/13/19 12:42:00 [...] capsule, 1 Refills, Maintenance, 12/03/21 9:05:00 EST, [facility], 150, cm, 11/25/21 [...] legs(Confirmed) Active Patent foramen ovale(Confirmed) 06/06/08 Active *BHN/CCA/CP-Xavirevicky Lora-[phone]/Health retirement, active care coordination(Confirmed) Active Neuropathic pain of lower extremity(Confirmed) Active Posttraumatic stress disorder(Confirmed) Active 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, Persistent moderate(Confirmed) Active Myelopathy(Confirmed) Active Syncope(Confirmed) 6 06/06/08 Active Back pain, mid(Confirmed) Active Urinary incontinence(Confirmed) Active Vitamin D deficiency(Confirmed) Active 14th and 5th digit, s/p capsulotomy and left carpal tunnel release 2updated Oswestry Disability Index: 72% ( crippled ) on 11/25/21; updated [place] Back Pain Scale: 87 on 11/25/21 3updated Oswestry Disability Index: 56% ( severe disability ) on 10/26/18; updated [place] Back Pain Scale: 77 on 10/27/18 4initial Oswestry Disability Index: 76% ( crippled ) on 07/09/17; initial [place] Back Pain Scale: 84 on 07/09/17; initial [place]: 14 on 07/09/17 5SOAPP-R: 21 on 07/09/17 6cardiology 2016 cited known PVCs Social History Social History Type Response Tobacco Use: 4 or less cigar ettes(less than 1/4 pack)/day in last 30 days. Sex Female Medical Equipment Implanted Date:01/18/21Target Site:Vagina Description Quantity MRI Company Model SLING SUSPEND FASCIA ERIN 2X 7 - COLO (66-3797) 1 Coloplast Jeff Unknown JESSEE:No Information Assigning Authority: FDA
--- OUTSIDE RECORDS SUMMARY | 2023-06-22 17:18 | XMS_ITS | Continuity of Care Document ---
Author Name Unknown Organization [facility] Address [address] [place] [address]- Care Team Providers Care Emergency Medical Technician Name Role Phone Malik FRANCIS, Shanon Arshad Primary Care Physician [facility] Date(s): 10/24/20 - 11/23/20 [facility] [address] [place] [address]- Attending Physician: Kelsey Cartagena Admitting Physician: Kelsey [...] 10/24/20 14:00:00 EST, Route to Pharmacy Electronically, [facility], Partial fill upon patient request if the prescription is for a schedule II opioid... Start Date: 10/24/20 Status: Ordered gabapentin 300 mg oral capsule 900 mg, 3, capsule, By Mouth, 3 times a day, follow previously given instructions for increasing dose, # 270 capsule, Refills 4, Tot. Refills 4, Maintenance, 10/29/20 15:45:00 EST, Route to Pharmacy Electronically, [facility], replaces prio... Start Date: 10/29/20 Stop Date: 03/28/21 Status: Ordered methadone 5 mg oral tablet See Instructions, 1 tab PO in AM 2 tabs in Afternoon and 1 tab @ HS for pain, # 112 tablet, 0 Refills, Maintenance, 10/29/20 13:13:00 EST, Tablet, [facility], Partial fill upon patient request. Dose Increase on 06/22/2020 to 4 tabs a day, 149... 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 Myelopathy(Confirmed) Active Syncope(Confirmed) 06/06/08 Active Mid back pain(Confirmed) Active Urinary incontinence(Confirmed) Active 14th and 5th digit, s/p capsulotomy and left carpal tunnel release 2updated Oswestry Disability Index: 56% ( severe disability ) on 10/26/18; updated [place] Back Pain Scale: 77 on 10/27/18 3initial Oswestry Disability Index: 76% ( crippled ) on 07/09/17; initial [place] Back Pain Scale: 84 on 07/09/17; initial [place]: 14 on 07/09/17 4SOAPP-R: 21 on 07/09/17 Social History Social History Type Response Tobacco Use: 4 or less cigar ettes(less than 1/4 pack)/day in last 30 days. Sex Female
--- OUTSIDE RECORDS SUMMARY | 2023-06-22 17:18 | XMS_ITS | Continuity of Care Document ---
Author Name Unknown Organization [facility] Address [address], [address], [address] [place] [address]- Care Team Providers Care Manager Managing Name Role Phone Malik FRANCIS, Shanon Arshad Primary Care Physician Encounter [facility] Date(s): 02/27/21 - 03/29/21 [facility] [address], [address], [address] [place] [address]- Allergies, Adverse Reactions, Alerts Substance Reaction Severity [...] pharm: [facility], 12/13/19 13:32:00 EST, Compound, Hubert, taina, 12/13/19 12:42:00 EST, He... Start Date: 12/13/19 Status: Ordered ergocalciferol 76403 iu oral capsule 50,000 International_Units, 1, capsule, By Mouth, Every week, for 30 days, # 5 capsule, Refills 1, Tot. Refills 1, Acute 04/20/21 12:17:00 EDT, 02/19/21 12:17:00 EDT, Route to Pharmacy Electronically, [facility], Partial fill upon patient r... [...] 10/29/20 15:45:00 EST, Route to Pharmacy Electronically, [facility], replaces prio... Start Date: 10/29/20 Stop Date: 03/28/21 Status: Ordered methadone 5 mg oral tablet See Instructions, 1 tab PO in AM 2 tabs in Afternoon and 1 tab @ HS for pain, # 112 tablet, 0 Refills, Maintenance, 03/29/21 9:45:00 EDT, Tablet, [facility], Partial fill upon patient request., 149.9, cm, 03/27/21 13:01:00 EDT, Height, 68.3... Start Date: 03/29/21 Status: Ordered naloxone 4 mg/0.1 mL nasal spray = 4 mg, Naris, Left, Once, may repeat every 2 to 3 minutes until patient responds, # 2 each, 0 Refills, Soft Stop, 12/13/19 13:32:00 EST, [facility], 166, cm, 12/13/19 12:42:00 [...] Active Patent foramen ovale(Confirmed) 06/06/08 Active *BHN/CCA/CP-Xavier [facility]-[phone]/Health m[facility], active care coordination(Confirmed) Active Neuropathic pain of [...] Back Pain Scale: 84 on 07/09/17; initial [place]: 14 on 07/09/17 4SOAPP-R: 21 on 07/09/17 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 Sex Female Medical Equipment Implanted Date:01/18/21Target Site:Vagina Description Quantity MRI Company Model SLING SUSPEND FASCIA ERIN 2X 7 - COLO (52-6789) 1 [employer]oplast Jeff Unknown JESSEE:No Information Assigning Authority: FDA
--- OUTSIDE RECORDS SUMMARY | 2023-06-22 17:18 | XMS_ITS | Continuity of Care Document ---
Author Name Unknown Organization [facility] Address Unknown Care Team Providers Care Clinical Application Manager Name Role Phone Petrona Mosher MD Primary Care Physician Encounter [facility] [place] Date(s): 11/20/21 - 12/20/21 [facility] Attending Physician: Kelsey Cartagena Admitting Physician: AdmKelsey roland Referring Physician: Admtr, Aldo8 Allergies, Adverse Reactions, Alerts Substance Reaction Severity [...] 5 Refills, Maintenance, 08/06/21 8:30:00 EDT, Tablet, [facility], Partial fill upon patient request if the prescription is for aschedule II opioid drug., 150, cm, 07/23/21 22:44:0... Start Date: 08/06/21 Stop Date: 02/02/22 Status: Ordered lidocaine 5% topical ointment 1 application, Topically, 3 times a day, # 50 Gm, 2 Refills, Maintenance, 09/19/21 14:33:00 EST, Ointment, [facility], Partial fill upon patient request if the prescription is for a schedule II opioid drug., 1 application Topically 3 times... Start Date: 09/19/21 Status: Ordered methadone 5 mg oral tablet See Instructions, 1 tab PO in AM 2 tabs in Afternoon and 1 tab @ HS for pain, # 112 tablet, 0 Refills, Maintenance, 11/29/21 10:02:00 EST, Tablet, [facility], Partial fill upon patient request., 12/02/21, 150, cm, 11/25/21 9:27:00 EST, Heig... Start Date: 11/29/21 Status: Ordered naloxone 4 mg/0.1 mL nasal spray = 4 mg, Naris, Left, Once, may repeat every 2 to 3 minutes until patient responds, # 2 each, 0 Refills, Soft Stop, 12/13/19 13:32:00 EST, [facility], 166, cm, 12/13/19 [...] capsule, 1 Refills, Maintenance, 12/03/21 9:05:00 EST, [facility], 150, cm, 11/25/21 [...] Active Patent foramen ovale(Confirmed) 06/06/08 Active *BHN/CCA/CP-Xavier [facility]-[phone]/Health senior living, active care coordination(Confirmed) Active Neuropathic pain of [...] Back Pain Scale: 84 on 07/09/17; initial [place]: 14 on 07/09/17 5SOAPP-R: 21 on 07/09/17 6cardiology 2016 cited known PVCs Social History Social History Type Response Tobacco Use: 4 or less cigar ettes(less than 1/4 pack)/day in last 30 days. Sex Female Medical Equipment Implanted Date:01/18/21Target Site:Vagina Description Quantity MRI Company Model SLING SUSPEND FASCIA ERIN 2X 7 - COLO (72-4401) 1 [employer]oplast Jeff Unknown JESSEE:No Information Assigning Authority: FDA
--- OUTSIDE RECORDS SUMMARY | 2023-06-22 17:19 | XMS_ITS | Continuity of Care Document ---
Author Name Unknown Organization [facility] [place] Address [address] [place] [address]- Care Team Providers Care Emergency Room Specialist Name Role Phone Petrona Mosher MD Primary Care Physician Encounter [facility] Date(s): 10/21/22 - 11/20/[address] [address]- Attending Physician: Admtr, Ar8 Allergies, Adverse Reactions, Alerts Substance Reaction Severity [...] 3 Refills, Maintenance, 07/07/22 14:53:00 EDT, [facility], 149.86, cm, 06/24/22 13:07:00 EDT, Height, 69.9, kg, 01/29/22 13:59:00 EDT, Dry Weight Start Date: 07/07/22 Stop Date: 08/06/22 Status: Ordered naloxone 4 mg/0.1 mL nasal spray = 4 mg, Naris, Left, Once, may repeat every 2 to 3 minutes until patient responds, # 2 each, 0 Refills, Soft Stop, 12/13/19 13:32:00 EST, [facility], 166, cm, 12/13/19 12:42:00 EST, [...] capsule, 1 Refills, Maintenance, 12/03/21 9:05:00 EST, [facility], 150, cm, 11/25/21 9:27:00 EST, [...] Patent foramen ovale Confirmed 06/06/08 Active *BHN/CCA/CP-[facility] [place]-[phone]/He [facility], active care coordination Confirmed Active Neuropathic pain [...] 72% ( crippled ) on 11/25/21; updated [place] Back Pain Scale: 87 on 11/25/21 3updated Oswestry Disability Index: 56% ( severe disability ) on 10/26/18; updated [place] Back Pain Scale: 77 on 10/27/18 4initial Oswestry Disability Index: 76% ( crippled ) on 07/09/17; initial [place] Back Pain Scale: 84 on 07/09/17; initial [place]: 14 on 07/09/17 5SOAPP-R: 21 on 07/09/17 [...] MRI Safety Implantable Status Assigning Authority Unknown [id number] Unknown 08/18/24 Unknown Unknown Active Unknown Patient Care team information Care Team Personnel Name: Christie Han RN Position: [facility] RN Member Role: Primary Care Nurse Name: Naomi Vazquez NP Position: [facility] Associate Professional Member Role: Primary Care Nurse Address: Address: [address] [place] [address] [place] [address]- Name: Petrona Mosher MD Position: [facility] Resident Member Role: PCP Address: Address: [address] [place] [address]- Name: Kelly Hawk RN Position: [facility] OB RN Member Role: Primary Care Nurse Care Team Related Persons Name: DAILY CORONA Address: home [address] [place] [address] Name: DAILY CORONA Address: home [address] [place] [address] Name: DAILY SAAVEDRA Address: [address] [place] [address] Name: DARRELL PRAKASH Address: home [address] [place] [address] Name: INGA PAGE Name: HOLDEN STALLWORTH Address: home [address] [place] [address]
--- OUTSIDE RECORDS SUMMARY | 2023-06-22 17:19 | XMS_ITS | Continuity of Care Document ---
Author Name Unknown Organization [facility] Address [address] [facility], [address] d Floor, [address] [place] [address]- Care Team Providers Care Policy Change Clerks Supervisor Name Role Phone Malik FRANCIS, Shanon Arshad Primary Care Physician [facility] Date[facility]s): 01/[facility]21 - 02/20/21 [facility] [address], [address], [address] [place] [address]- Allergies, Adverse Reactions, Alerts Substance Reaction Severity [...] preferred pharm: [facility], 12/13/19 13:32:00 EST, Leopoldo, Hubert, taina, 12/13/19 12:42:00 EST, He... Start Date: 12/13/19 Status: Ordered ergocalciferol 36895 iu oral capsule 50,000 International_Units, 1, capsule, By Mouth, Every week, for 30 days, # 5 capsule, Refills 1, Tot. Refills 1, Acute 04/20/21 12:17:00 EDT, 02/19/21 12:17:00 EDT, Route to Pharmacy Electronically, [facility], Partial fill upon patient [...] 10/29/20 15:45:00 EST, Route to Pharmacy Electronically, [facility], replaces prio... Start Date: 10/29/20 Stop Date: 03/28/21 Status: Ordered methadone 5 mg oral tablet See Instructions, 1 tab PO in AM 2 tabs in Afternoon and 1 tab @ HS for pain, # 112 tablet, 0 Refills, Maintenance, 01/29/21 16:24:00 EDT, Tablet, [facility], Partial fill upon patient request., 149.9, cm, 01/25/21 8:53:00 EDT, Height, 68.3... Start Date: 01/29/21 Status: Ordered naloxone 4 mg/0.1 mL nasal spray = 4 mg, Naris, Left, Once, may repeat every 2 to 3 minutes until patient responds, # 2 each, 0 Refills, Soft Stop, 12/13/19 13:32:00 EST, [facility], 166, cm, 12/13/19 12:42:00 [...] day, PRN as needed for muscle spasm, # 90 capsule, 1 Refills,Maintenance, 02/20/21 15:50:00 EDT, Capsule, [facility], Partial fill upon patient request if the prescription is for a schedule II opioid d... Start Date: 02/20/21 Stop Date: 04/21/21 Status: Ordered Problem List Condition Effective Dates [...] Active Patent foramen ovale(Confirmed) 06/06/08 Active *BHN/CCA/CP-[facility]-[phone]/Health [facility], active care coordination(Confirmed) Active Neuropathic pain [...] disability ) on 10/26/18; updated [place] Back Pain Scale: 77 on 10/27/18 3initial Oswestry Disability Index: 76% ( crippled ) on 07/09/17; initial [place] Back Pain Scale: 84 on 07/09/17; initial [place]: 14 on 07/09/17 4SOAPP-R: 21 on 07/09/17 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 Sex Female Medical Equipment Implanted Date:01/18/21Target Site:Vagina Description Quantity MRI Company Model SLING SUSPEND FASCIA ERIN 2X 7 - COLO (07-6759) 1 [employer]oplast Jeff Unknown JESSEE:No Information Assigning Authority: FDA
--- OUTSIDE RECORDS SUMMARY | 2023-06-22 17:19 | XMS_ITS | Continuity of Care Document ---
Author Name Unknown Organization [facility] Address [address] [place] [address]- Care Team Providers Care Database Developer Name Role Phone Nomi FRANCIS, Petrona Primary Care Physician [facility]counter [facility] Date(s): 02/25/21 - 04/28/[address] [address]- Attending Physician: Not on Staff, Attending MD Allergies, Adverse Reactions, Alerts Substance Reaction [...] 04/12/21 15:07:00 EDT, Route to Pharmacy Electronically, [facility], 149.9, cm... Start Date: 04/12/21 Status: Ordered methadone 5 mg oral tablet See Instructions, 1 tab PO in AM 2 tabs in Afternoon and 1 tab @ HS for pain, # 112 tablet, 0 Refills, Maintenance, 03/29/21 9:45:00 EDT, Tablet, [facility] [...] Refills, Maintenance, 04/08/21 11:01:00 EDT, [facility], 149.9, cm, 03/27/21 13:01:00 EDT, Height, 68.3, [...] foramen ovale(Confirmed) 06/06/08 Active *BHN/CCA/CP-[facility]-[phone]/Health long term, active care coordination(Confirmed) Active Neuropathic [...] ( severe disability ) on 10/26/18; updated [place] Back Pain Scale: 77 on 10/27/18 3initial Oswestry Disability Index: 76% ( crippled ) on 07/09/17; initial [place] Back Pain Scale: 84 on 07/09/17; initial [place]: 14 on 07/09/17 4SOAPP-R: 21 on 07/09/17 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 Sex Female Medical Equipment Implanted Date:01/18/21Target Site:Vagina Description Quantity MRI Company Model SLING SUSPEND FASCIA ERIN 2X 7 - COLO (14-0061) 1 [employer] Jeff Unknown JESSEE:No Information Assigning Authority: FDA
--- OUTSIDE RECORDS SUMMARY | 2023-06-22 17:19 | XMS_ITS | Continuity of Care Document ---
Author Name Unknown Organization [facility] Address [address] [place] [address]- Care Team Providers Care Shearing Supervisor Name Role Phone Malik FRANCIS, Shanon Arshad Primary Care Physician [facility] Date(s): 10/24/20 - 11/23/20 [facility] [address] [place] [address] Allergies, Adverse Reactions, Alerts Substance Reaction Severity [...] 10/24/20 14:00:00 EST, Route to Pharmacy Electronically, [facility], Partial fill upon patient request if the prescription is for a schedule II opioid... Start Date: 10/24/20 Status: Ordered gabapentin 300 mg oral capsule 900 mg, 3, capsule, By Mouth, 3 times a day, follow previously given instructions for increasing dose, # 270 capsule, Refills 4, Tot. Refills 4, Maintenance, 10/29/20 15:45:00 EST, Route to Pharmacy Electronically, [facility], replaces prio... Start Date: 10/29/20 Stop Date: 03/28/21 Status: Ordered methadone 5 mg oral tablet See Instructions, 1 tab PO in AM 2 tabs in Afternoon and 1 tab @ HS for pain, # 112 tablet, 0 Refills, Maintenance, 10/29/20 13:13:00 EST, Tablet, [facility], Partial fill upon patient request. [...] Active Patent foramen ovale(Confirmed) 06/06/08 Active *BHN/CCA/CP-[facility]-[phone]/Health correction, active care coordination(Confirmed) Active Neuropathic pain of [...] Back Pain Scale: 84 on 07/09/17; initial [place]: 14 on 07/09/17 4SOAPP-R: 21 on 07/09/17 Social History Social History Type Response Tobacco Use: 4 or less cigar ettes(less than 1/4 pack)/day in last 30 days. Sex Female
--- OUTSIDE RECORDS SUMMARY | 2023-06-22 17:19 | XMS_ITS | Continuity of Care Document ---
Author Name Unknown Organization [facility] Address [address] [place] [address]- Care Team Providers Care Mapping Analyst Name Role Phone Petrona Mosher MD Primary Care Physician Encounter [facility] Date(s): 09/30/21 - 10/30/21 [facility] [address] [place] [address]- Allergies, Adverse Reactions, Alerts Substance Reaction Severity [...] 5 Refills, Maintenance, 08/06/21 8:30:00 EDT, Tablet, [facility], Partial fill upon patient request if the prescription is for aschedule II opioid drug., 150, cm, 07/23/21 22:44:0... Start Date: 08/06/21 Stop Date: 02/02/22 Status: Ordered lidocaine 5% topical ointment 1 application, Topically, 3 times a day, # 50 Gm, 2 Refills, Maintenance, 09/19/21 14:33:00 EST, Ointment, [facility], Partial fill upon patient request if the prescription is for a schedule II opioid drug., 1 application Topically 3 times... Start Date: 09/19/21 Status: Ordered methadone 5 mg oral tablet See Instructions, 1 tab PO in AM 2 tabs in Afternoon and 1 tab @ HS for pain, # 112 tablet, 0 Refills, Maintenance, 10/01/21 8:21:00 EST, Tablet, [facility], Partial fill upon patient request., 10/02/21, 150, cm, 09/19/21 14:05:00 EST, [place]... Start Date: 10/01/21 Status: Ordered naloxone 4 mg/0.1 mL nasal spray = 4 mg, Naris, Left, Once, may repeat every 2 to 3 minutes until patient responds, # 2 each, 0 Refills, Soft Stop, 12/13/19 13:32:00 EST, [facility], 166, cm, 12/13/19 12:42:00 [...] Refills, Maintenance, 04/08/21 11:01:00 EDT, [facility], 149.9, cm, 03/27/21 13:01:00 EDT, Height, 68.3, [...] Patent foramen ovale(Confirmed) 06/06/08 Active *BHN/CCA/CP-[facility]-[phone]/Health [place], active care coordination(Confirmed) Active Neuropathic pain of [...] [place] Back Pain Scale: 77 on 10/27/18 3initial Oswestry Disability Index: 76% ( crippled ) on 07/09/17; initial [place] Back Pain Scale: 84 on 07/09/17; initial [place]: 14 on 07/09/17 4SOAPP-R: 21 on 07/09/17 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 Sex Female Medical Equipment Implanted Date:01/18/21Target Site:Vagina Description Quantity MRI Company Model SLING SUSPEND FASCIA ERIN 2X 7 - COLO (93-8052) 1 [employer]oplast Jeff Unknown JESSEE:No Information Assigning Authority: FDA
--- OUTSIDE RECORDS SUMMARY | 2023-06-22 17:19 | XMS_ITS | Continuity of Care Document ---
Author Name Unknown Organization [facility] Address [address] [place] [address]- Care Team Providers Care Playground Equipment Erector Name Role Phone Malik FRANCIS, Shanon Arshad Primary Care Physician [facility] Date(s): 07/27/20 - 08/26/20 [facility] [address] [place] [address] Allergies, Adverse Reactions, Alerts Substance Reaction Severity [...] 05/15/20 14:07:00 EDT, Route to Pharmacy Electronically, [facility], 149.86, cm, 206:22:00 EDT, Height, 67.73, kg, 04/19/20 8:54:00 ED... Start Date: 05/15/20 Stop Date: 10/12/20 Status: Ordered methadone 5 mg oral tablet See Instructions, 1 tab PO in AM 2 tabs in Afternoon and 1 tab @ HS for pain, # 112 tablet, 0 Refills, Maintenance, 07/27/20 16:56:00 EDT, Tablet, [facility], Partial fill upon patient request. Dose Increase on 06/22/2020 to 4 tabs a day, 149... Start Date: 07/27/20 Status: Ordered naloxone 4 mg/0.1 mL nasal spray = 4 mg, Naris, Left, Once, may repeat every 2 to 3 minutes until patient responds, # 2 each, 0 Refills, Soft Stop, 12/13/19 13:32:00 EST, [facility], 166, cm, 12/13/19 12:42:00 [...] Active Patent foramen ovale(Confirmed) 06/06/08 Active *BHN/CCA/CP-[facility]-[phone]/Health [facility], active care coordination(Confirmed) Active Neuropathic pain of [...] Back Pain Scale: 84 on 07/09/17; initial [place]: 14 on 07/09/17 4SOAPP-R: 21 on 07/09/17 Social History Social History Type Response Tobacco Use: 4 or less cigar ettes(less than 1/4 pack)/day in last 30 days. Sex Female
--- OUTSIDE RECORDS SUMMARY | 2023-06-22 17:19 | XMS_ITS | Continuity of Care Document ---
Author Name Unknown Organization [facility] Address [address] [place] [address]- Care Team Providers Care Forestry Biology Specialist Name Role Phone Petrona Mosher MD Primary Care Physician [phone] Encounter [facility] Date(s): 01/29/22 - 01/29/[address] [address]- Encounter Diagnosis Urgency incontinence(Final) - 01/29/22 Uninhibited neurogenic bladder(Final) - 01/29/22 Detrusor instability(Final) - 01/29/22 Discharge Disposition: A-D/C Home Attending Physician: Charles Brock MD Admitting Physician: Charles Brock MD Referring Physician: Charles Brock MD Allergies, Adverse Reactions, [...] 5 Refills, Maintenance, 08/06/21 8:30:00 EDT, Tablet, [facility], Partial fill upon patient request if the prescription is for aschedule II opioid drug., 150, cm, 07/23/21 22:44:0... Start Date: 08/06/21 Stop Date: 02/02/22 Status: Ordered methadone 5 mg oral tablet See Instructions, 1 tab PO in AM 2 tabs in Afternoon and 1 tab @ HS for pain, # 112 tablet, 0 Refills, Maintenance, 01/29/22 8:22:00 EDT, Tablet, [facility], Partial fill upon patient request., 149.86, cm, 01/27/22 12:58:00 EDT, Height, 71.... Start Date: 01/29/22 Status: Ordered naloxone 4 mg/0.1 mL nasal spray = 4 mg, Naris, Left, Once, may repeat every 2 to 3 minutes until patient responds, # 2 each, 0 Refills, Soft Stop, 12/13/19 13:32:00 EST, [facility], 166, cm, 12/13/19 [...] capsule, 1 Refills, Maintenance, 12/03/21 9:05:00 EST, [facility], 150, cm, 11/25/21 9:27:00 Ibeth HAMMER. 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, Persistent moderate(Confirmed) Active Myelopathy(Confirmed) Active Syncope(Confirmed) 6 06/06/08 Active Back pain, mid(Confirmed) Active Urinary incontinence(Confirmed) Active Vitamin D deficiency(Confirmed) Active 14th and 5th digit, s/p capsulotomy and left carpal tunnel release 2updated Oswestry Disability Index: 72% ( crippled ) on 11/25/21; updated [place] Back Pain Scale: 87 on 11/25/21 3updated Oswestry Disability Index: 56% ( severe disability ) on 10/26/18; updated [place] Back Pain Scale: 77 on 10/27/18 4initial Oswestry Disability Index: 76% ( crippled ) on 07/09/17; initial [place] Back Pain Scale: 84 on 07/09/17; initial [place]: 14 on 07/09/17 5SOAPP-R: 21 on 07/09/17 6cardiology 2016 cited known PVCs Vital Signs Most recent to oldest [Reference Range]: 1 2 3 Height 149.86 cm (01/29/22 1:59 PM) 149.86 cm (01/27/22 12:58 PM) Weight 69.9 kg (01/29/22 1:59 PM) 71.82 kg (01/27/22 12:58 PM) Oxygen Saturation [94-100 %] 99 % (01/29/22 3:30 PM) 99 % (01/29/22 3:15 PM) 100 % (01/29/22 3:00 PM) Pulse Rate [55-90 bpm] 55 bpm (01/29/22 1:59 PM) Body Mass Index [18.5-24.99] 31.12 *>HHI* (01/29/22 1:59 PM) 31.98 *>HHI* (01/27/22 12:58 PM) Blood Pressure [90-138/55-84 mm Hg] 107/61mm Hg (01/29/22 3:30 PM) 92/61mm Hg (01/29/22 3:15 PM) 86/58mm Hg *L* (01/29/22 3:00 PM) Respiratory Rate [16-30 br/min] 12 br/min *L* (01/29/22 3:30 PM) 14 br/min *L* (01/29/22 3:15 PM) 15 br/min *L* (01/29/22 3:00 PM) Temperature [96.8-100.4 DegF] 97.5 DegF (01/29/22 2:45 PM) 99.3 DegF (01/29/22 1:59 PM) Liters per Minute 5 L/min (01/29/22 2:45 PM) Mode of Delivery (Oxygen) Room air (01/29/22 3:15 PM) Simple face mask (01/29/22 2:45 PM) Room air (01/29/22 1:59 PM) Blood pressure sites Leg, right (01/29/22 2:45 PM) Arm, right (01/29/22 1:59 PM) Temperature Route Temporal (01/29/22 2:45 PM) Temporal (01/29/22 1:59 PM) Dry Weight 69.9 kg (01/29/22 1:59 PM) 71.82 kg (01/27/22 12:58 PM) Weight Obtained Via Standing scale (01/29/22 1:59 PM) Dry Weight Obtained Via Standing scale (01/29/22 1:59 PM) Social History Social History Type Response Tobacco Use: 4 or less cigar ettes(less than 1/4 pack)/day in last 30 days. Sex Female Medical Equipment Implanted Date:01/18/21Target Site:Vagina Description Quantity MRI Company Model SLING SUSPEND FASCIA ERIN 2X 7 - COLO (32-7733) 1 [employer] Jeff Unknown JESSEE:No Information Assigning Authority: FDA
--- OUTSIDE RECORDS SUMMARY | 2023-06-22 17:19 | XMS_ITS | Continuity of Care Document ---
Author Name Unknown Organization [facility] ter Address [address] [place] [address]- Care Team Providers Care Fiscal Specialist Name Role Phone Malik FRANCIS, Shanon Arshad Primary Care Physician [facility] 12/16[facility]19 - 02/09/[address] [address]- [facility] Attending Physician: Charles Brock MD Admitting Physician: Charles Brock MD Allergies, Adverse Reactions, [...] pain, # 84 tablet, 0 Refills, Maintenance, 01/26/20 13:17:00 EDT, Tablet, [facility], Partial fill upon patient request, 01/27/20, 166, cm, 12/13/19 12:42:00 EST, Height, 82.6, kg, 07/05... Start Date: 01/26/20 Stop Date: 02/23/20 Status: Ordered naloxone 4 mg/0.1 mL nasal spray = 4 mg, Naris, Left, Once, may repeat every 2 to 3 minutes until patient responds, # 2 each, 0 Refills, Soft Stop, 12/13/19 13:32:00 EST, [facility], 166, cm, 12/13/19 12:42:00 [...] 06/06/08 Active *BHN/CCA/CP-[facility]-[phone]/Health [facility], active care coordination(Confirmed) Active Neuropathic pain [...] Back Pain Scale: 84 on 07/09/17; initial [place]: 14 on 07/09/17 4SOAPP-R: 21 on 07/09/17 Social History Social History Type Response Tobacco Use: 4 or less cigar ettes(less than 1/4 pack)/day in last 30 days. Sex Female
--- OUTSIDE RECORDS SUMMARY | 2023-06-22 17:19 | XMS_ITS | Continuity of Care Document ---
Author Name Unknown Organization [facility] Address [address] [place] [address]- Care Team Providers Care News Operations Manager Name Role Phone Nomi FRANCIS, Petrona Primary Care Physician [phone] [facility] 10/31/22 - 01/17/23 [facility] [address] [place], [place] [address] Attending Physician: Aries Neely MD Admitting Physician: [...] 3 Refills, Maintenance, 07/07/22 14:53:00 EDT, [facility], 149.86, cm, 06/24/22 13:07:00 EDT, Height, 69.9, kg, 01/29/22 13:59:00 EDT, Dry Weight Start Date: 07/07/22 Stop Date: 08/06/22 Status: Ordered naloxone 4 mg/0.1 mL nasal spray = 4 mg, Naris, Left, Once, may repeat every 2 to 3 minutes until patient responds, # 2 each, 0 Refills, Soft Stop, 12/13/19 13:32:00 EST, [facility], 166, cm, 12/13/19 12:42:00 EST, [...] capsule, 1 Refills, Maintenance, 12/03/21 9:05:00 EST, [facility], 150, cm, 11/25/21 9:27:00 [...] Active Patent foramen ovale Confirmed 06/06/08 Active *BHN/CCA/[facility]-[phone]/[facility], active care coordination Confirmed Active Neuropathic pain [...] 72% ( crippled ) on 11/25/21; updated [place] Back Pain Scale: 87 on 11/25/21 3updated Oswestry Disability Index: 56% ( severe disability ) on 10/26/18; updated [place] Back Pain Scale: 77 on 10/27/18 4initial Oswestry Disability Index: 76% ( crippled ) on 07/09/17; initial [place] Back Pain Scale: 84 on 07/09/17; initial [place]: 14 on 07/09/17 5SOAPP-R: 21 on 07/09/17 [...] MRI Safety Implantable Status Assigning Authority Unknown [id number] Unknown 08/18/24 Unknown Unknown Active Unknown Patient Care team information Care Team Personnel Name: Christie Han RN Position: [facility] RN Member Role: Primary Care Nurse Name: Naomi Vazquez NP Position: [facility] Associate Professional Member Role: Primary Care Nurse Address: Address: [address] [place] [address] Infectious [place], [place] [address] Name: Petrona Mosher MD Position: [facility] Resident Member Role: PCP Address: Address: [address] [facility] [place] [address]- Name: Kelly Hawk RN Position: [facility] OB RN Member Role: Primary Care Nurse Care Team Related Persons Name: DAILY CORONA Address: home [address] [place], [place] Name: DAILY CORONA Address: home [address], [place] Name: DAILY SAAVEDRA Address: home [address] [place] [address] Name: DARRELL PRAKASH Address: home [address] [place] [address] Name: INGA PAGE Name: HOLDEN STALLWORTH Address: home [address] [place] [address]
--- OUTSIDE RECORDS SUMMARY | 2023-06-22 17:19 | XMS_ITS | Continuity of Care Document ---
Author Name Unknown Organization [facility] Address [address] [place] [address]- Care Team Providers Care Instructor Warper Name Role Phone Petrona Mosher MD Primary Care Physician [facility] Date[facility] - 11/01/[facility] [address] [place] [address] Attending Physician: Kelsey Cartagena Admitting Physician: AdmtrKelsey Referring Physician: Admtr, ArMorgan Allergies, Adverse Reactions, Alerts Substance Reaction Severity [...] 3Admin Note: VIS GIVEN 4Admin Note: VIS 2/12 5Admin Note: VIS 11/30 6Admin Note: VIS [...] Maintenance, 08/06/21 8:30:00 EDT, Tablet, [facility], Partial fill upon patient request if the prescription is for aschedule II opioid drug., 150, cm, 07/23/21 22:44:0... Start Date: 08/06/21 Stop Date: 02/02/22 Status: Ordered lidocaine 5% topical ointment 1 application, Topically, 3 times a day, # 50 Gm, 2 Refills, Maintenance, 09/19/21 14:33:00 EST, Ointment, [facility], Partial fill upon patient request if the prescription is for a schedule II opioid drug., 1 application Topically 3 times... Start Date: 09/19/21 Status: Ordered methadone 5 mg oral tablet See Instructions, 1 tab PO in AM 2 tabs in Afternoon and 1 tab @ HS for pain, # 112 tablet, 0 Refills, Maintenance, 11/01/21 11:10:00 EST, Tablet, [facility], Partial fill upon patient request., 11/02/21, 150, cm, 10/02/21 13:09:00 EST, Hei... Start Date: 11/01/21 Status: Ordered naloxone 4 mg/0.1 mL nasal spray = 4 mg, Naris, Left, Once, may repeat every 2 to 3 minutes until patient responds, # 2 each, 0 Refills, Soft Stop, 12/13/19 13:32:00 EST, [facility], 166, cm, 12/13/19 12:42:00 [...] Refills, Maintenance, 04/08/21 11:01:00 EDT, [facility], 149.9, cm, 03/27/21 13:01:00 EDT, Height, 68.3, [...] Active Patent foramen ovale(Confirmed) 06/06/08 Active *BHN/CCA/CP-Xavier [facility]-[phone]/Health half-way, active care coordination(Confirmed) Active Neuropathic pain of [...] ( severe disability ) on 10/26/18; updated [place] Back Pain Scale: 77 on 10/27/18 3initial Oswestry Disability Index: 76% ( crippled ) on 07/09/17; initial [place] Back Pain Scale: 84 on 07/09/17; initial [place]: 14 on 07/09/17 4SOAPP-R: 21 on 07/09/17 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 Sex Female Medical Equipment Implanted Date:01/18/21Target Site:Vagina Description Quantity MRI Company Model SLING SUSPEND FASCIA ERIN 2X 7 - COLO (81-9030) 1 [employer]oplast Jeff Unknown JESSEE:No Information Assigning Authority: FDA
--- OUTSIDE RECORDS SUMMARY | 2023-06-22 17:19 | XMS_ITS | Continuity of Care Document ---
Author Name Unknown Organization [facility] Address [address] [place] [address]- Care Team Providers Care Hybrid Derivatives Trader Name Role Phone Petrona Moshre MD Primary Care Physician [phone] Encounter [facility] Date(s): 06/04/22 - 06/11/[address] [address]- Attending Physician: Jareth Cuello MD Admitting Physician: Jareth Cuello MD Allergies, Adverse Reactions, Alerts Substance Reaction [...] 3 Refills, Maintenance, 02/28/22 16:35:00 EDT, Tablet, [facility]/pharmacy #[id number], Partial fill upon patient request if the prescription is for a schedule II opioid drug., 149.86, cm, 01/29/22 13:59:... Start Date: 02/28/22 Stop Date: 06/28/22 Status: Ordered naloxone 4 mg/0.1 mL nasal spray = 4 mg, Naris, Left, Once, may repeat every 2 to 3 minutes until patient responds, # 2 each, 0 Refills, Soft Stop, 12/13/19 13:32:00 EST, [facility], 166, cm, 12/13/19 12:42:00 [...] capsule, 1 Refills, Maintenance, 12/03/21 9:05:00 EST, [facility], 150, cm, 11/25/21 9:27:00 [...] Active Patent foramen ovale(Confirmed) 06/06/08 Active *BHN/CCA/CP-Xavier [facility]-[phone]/Health long term, active care coordination(Confirmed) Active Neuropathic [...] Back Pain Scale: 84 on 07/09/17; initial [place]: 14 on 07/09/17 5SOAPP-R: 21 on 07/09/17 6cardiology 2016 cited known PVCs Social History Social History Type Response Tobacco Use: 4 or less cigar ettes(less than 1/4 pack)/day in last 30 days. Sex Female Implantable Device List Procedure Provider Procedure Date Device Type Site Insertion Sling Pubovaginal with Fascia Vinod FRANCIS, Charles Roldan 01/18/21 Unknown Vagina Device Identifier Serial Number Lot or Batch Number Manufacturing Date Expiration Date Distinct Identification Code MRI Safety Implantable Status Assigning Authority Unknown [id number] Unknown 08/18/24 Unknown Unknown Active Unknown
--- OUTSIDE RECORDS SUMMARY | 2023-06-22 17:19 | XMS_ITS | Continuity of Care Document ---
Author Name Unknown Organization [facility] Address [address] [place] [address]- Care Team Providers Care Director Corporate Security Name Role Phone Petrona Mosher MD Primary Care Physician [facility] Date[facility]): 08/[facility]21 - 09/21/21 [facility] [address], [place] [address] Allergies, Adverse Reactions, Alerts Substance Reaction [...] 5 Refills, Maintenance, 08/06/21 8:30:00 EDT, Tablet, [facility], Partial fill upon patient request if the prescription is for aschedule II opioid drug., 150, cm, 07/23/21 22:44:0... Start Date: 08/06/21 Stop Date: 02/02/22 Status: Ordered lidocaine 5% topical ointment 1 application, Topically, 3 times a day, # 50 Gm, 2 Refills, Maintenance, 09/19/21 14:33:00 EST, Ointment, [facility], Partial fill upon patient request if the prescription is for a schedule II opioid drug., 1 application Topically 3 times... Start Date: 09/19/21 Status: Ordered methadone 5 mg oral tablet See Instructions, 1 tab PO in AM 2 tabs in Afternoon and 1 tab @ HS for pain, # 112 tablet, 0 Refills, Maintenance, 09/03/21 10:32:00 EST, Tablet, [facility], Partial fill upon patient request., 150, cm, 08/13/21 9:57:00 EDT, Height, 72.7,... Start Date: 09/03/21 Status: Ordered naloxone 4 mg/0.1 mL nasal spray = 4 mg, Naris, Left, Once, may repeat every 2 to 3 minutes until patient responds, # 2 each, 0 Refills, Soft Stop, 12/13/19 13:32:00 EST, [facility], 166, cm, 12/13/19 [...] Refills, Maintenance, 04/08/21 11:01:00 EDT, [facility], 149.9, cm, 03/27/21 13:01:00 EDT, Height, 68.3, [...] Active Patent foramen ovale(Confirmed) 06/06/08 Active *BHN/CCA/CP-Xavier [facility]-[phone]/Health fdc, active care coordination(Confirmed) Active Neuropathic pain [...] ( severe disability ) on 10/26/18; updated [place] Back Pain Scale: 77 on 10/27/18 3initial Oswestry Disability Index: 76% ( crippled ) on 07/09/17; initial [place] Back Pain Scale: 84 on 07/09/17; initial [place]: 14 on 07/09/17 4SOAPP-R: 21 on 07/09/17 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 Sex Female Medical Equipment Implanted Date:01/18/21Target Site:Vagina Description Quantity MRI Company Model SLING SUSPEND FASCIA ERIN 2X 7 - COLO (81-4602) 1 [employer]oplast Jeff Unknown JESSEE:No Information Assigning Authority: FDA
--- OUTSIDE RECORDS SUMMARY | 2023-06-22 17:19 | XMS_ITS | Continuity of Care Document ---
Author Name Unknown Organization [facility] Address [address] [place] [address]- Care Team Providers Care Computer Programming Manager Name Role Phone Malik FRANCIS, Shanon Arshad Primary Care Physician [facility] Date[facility]s): 07/05/20 - 08/04/20 [facility] [address] [place] [address]- [facility] Attending Physician: Kelsey Cartagena Admitting Physician: Kelsey [...] 05/15/20 14:07:00 EDT, Route to Pharmacy Electronically, [facility], 149.86, cm, :22:00 EDT, Height, 67.73, kg, 04/19/20 8:54:00 ED... Start Date: 05/15/20 Stop Date: 10/12/20 Status: Ordered methadone 5 mg oral tablet See Instructions, 1 tab PO in AM 2 tabs in Afternoon and 1 tab @ HS for pain, # 112 tablet, 0 Refills, Maintenance, 07/27/20 16:56:00 EDT, Tablet, [facility], Partial fill upon patient request. Dose Increase on 06/22/2020 to 4 tabs a day, 149... Start Date: 07/27/20 Status: Ordered naloxone 4 mg/0.1 mL nasal spray = 4 mg, Naris, Left, Once, may repeat every 2 to 3 minutes until patient responds, # 2 each, 0 Refills, Soft Stop, 12/13/19 13:32:00 EST, [facility], 166, cm, 12/13/19 [...] Patent foramen ovale(Confirmed) 06/06/08 Active *BHN/CCA/CP-Xavier [facility]-[phone]/Health snf, active care coordination(Confirmed) Active Neuropathic pain [...] Back Pain Scale: 84 on 07/09/17; initial [place]: 14 on 07/09/17 4SOAPP-R: 21 on 07/09/17 Social History Social History Type Response Tobacco Use: 4 or less cigar ettes(less than 1/4 pack)/day in last 30 days. Sex Female
--- OUTSIDE RECORDS SUMMARY | 2023-06-22 17:19 | XMS_ITS | Continuity of Care Document ---
Author Name Unknown Organization [facility] Address [address], [address] Floor, [address] [place] [address]- Care Team Providers Care Resident Engineer Name Role Phone Malik FRANCIS, Shanon Arshad Primary Care Physician [facility] Date[facility]s): 11/30/19 - 02/15/20 [facility] [address], [address], [address] [place] [address]- [facility] Attending Physician: Inderjit Roe MD Admitting Physician: Inderjit Roe MD Allergies, Adverse Reactions, Alerts Substance Reaction [...] 0 Refills, Maintenance, 01/26/20 13:17:00 EDT, Tablet, [facility], Partial fill upon patient request, 01/27/20, 166, cm, 12/13/19 12:42:00 EST, Height, 82.6, kg, 07/05... Start Date: 01/26/20 Stop Date: 02/23/20 Status: Ordered naloxone 4 mg/0.1 mL nasal spray = 4 mg, Naris, Left, Once, may repeat every 2 to 3 minutes until patient responds, # 2 each, 0 Refills, Soft Stop, 12/13/19 13:32:00 EST, [facility], 166, cm, 12/13/19 [...] legs(Confirmed) Active Patent foramen ovale(Confirmed) 06/06/08 [phone][facility], active care coordination(Confirmed) Active Neuropathic pain of [...] Back Pain Scale: 84 on 07/09/17; initial [place]: 14 on 07/09/17 4SOAPP-R: 21 on 07/09/17 Social History Social History Type Response Tobacco Use: 4 or less cigar ettes(less than 1/4 pack)/day in last 30 days. Sex Female
--- OUTSIDE RECORDS SUMMARY | 2023-06-22 17:19 | XMS_ITS | Continuity of Care Document ---
Author Name Unknown Organization [facility] Address [address] [place] [address]- Care Team Providers Care Sergeant Of Corrections Name Role Phone Malik FRANCIS, Shanon H Primary Care Physician [facility]s): 03[facility]20 - 04/26/20 [facility] [address] [place] [address]- [facility] Attending Physician: Kelsey Cartagena Admitting Physician: Kelsey Cartagena Referring Physician: Kelsey Cartagena Referring Physician: Gisel Chinchilla Allergies, Adverse Reactions, [...] 0 Refills, Maintenance, 04/24/20 12:36:00 EDT, Tablet, [facility], Partial fill upon patient request., 149.86, cm, 04/19/20 8:54:00 EDT, Height, 67.73, kg, 04/19/20 8:... 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 Syncope(Confirmed) 06/06/08 Active Mid back pain(Confirmed) Active Urinary incontinence(Confirmed) Active 14th and 5th digit, s/p capsulotomy and left carpal tunnel release 2updated Oswestry Disability Index: 56% ( severe disability ) on 10/26/18; updated [place] Back Pain Scale: 77 on 10/27/18 3initial Oswestry Disability Index: 76% ( crippled ) on 07/09/17; initial [place] Back Pain Scale: 84 on 07/09/17; initial [place]: 14 on 07/09/17 4SOAPP-R: 21 on 07/09/17 Social History Social History Type Response Tobacco Use: 4 or less cigar ettes(less than 1/4 pack)/day in last 30 days. Sex Female
--- OUTSIDE RECORDS SUMMARY | 2023-06-22 17:19 | XMS_ITS | Continuity of Care Document ---
Author Name Unknown Organization [facility] Address [address] [place] [address]- Care Team Providers Care Farm Crops Teacher Name Role Phone Nomi FRANCIS, Petrona Primary Care Physician [phone] [facility]counter [facility] Date[facility]s): 06/06/21 - 07/06/21 [facility] [address], [place] [address] Allergies, Adverse Reactions, Alerts Substance Reaction [...] By Mouth, 3 times a day, # 270 capsule, Refills 1, Tot. Refills 1, Maintenance, 07/01/21 12:09:00 EDT, Route to Pharmacy Electronically, [facility], 150, cm, 04/15/21 19:35:00 EDT, Height, 72.7, kg, 04/15/21 19:35:00 EDT, Dry We... Start Date: 07/01/21 Status: Ordered methadone 5 mg oral tablet See Instructions, 1 tab PO in AM 2 tabs in Afternoon and 1 tab @ HS for pain, # 112 tablet, 0 Refills, Maintenance, 06/28/21 16:42:00 EDT, Tablet, [facility], Partial fill upon patient request., 150, cm, 04/15/21 19:35:00 EDT, Height, 72.7,... Start Date: 06/28/21 Status: Ordered naloxone 4 mg/0.1 mL nasal spray = 4 mg, Naris, Left, Once, may repeat every 2 to 3 minutes until patient responds, # 2 each, 0 Refills, Soft Stop, 12/13/19 13:32:00 EST, [facility], 166, cm, 12/13/19 12:42:00 EST, [...] Refills, Maintenance, 04/08/21 11:01:00 EDT, [facility], 149.9, cm, 03/27/21 13:01:00 EDT, Height, 68.3, [...] Patent foramen ovale(Confirmed) 06/06/08 Active *BHN/CCA/CP-Xavier [facility]-[phone]/Health snf, active care coordination(Confirmed) Active Neuropathic pain [...] Back Pain Scale: 84 on 07/09/17; initial [place]: 14 on 07/09/17 4SOAPP-R: 21 on 07/09/17 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 Sex Female Medical Equipment Implanted Date:01/18/21Target Site:Vagina Description Quantity MRI Company Model SLING SUSPEND FASCIA ERIN 2X 7 - COLO (18-5358) 1 [employer] Jeff Unknown JESSEE:No Information Assigning Authority: FDA
--- OUTSIDE RECORDS SUMMARY | 2023-06-22 17:19 | XMS_ITS | Continuity of Care Document ---
Author Name Unknown Organization [facility] Address Unknown Care Team Providers Care Electrolysis Needle Operator Name Role Phone Petrona Mosher MD Primary Care Physician Encounter [facility] Date(s): 11/20/21 - 12/20/21 [facility] Attending Physician: Trevor Plascencia MD Referring Physician: Petrona Mosher MD Allergies, Adverse Reactions, Alerts Substance Reaction [...] 5 Refills, Maintenance, 08/06/21 8:30:00 EDT, Tablet, [facility], Partial fill upon patient request if the prescription is for aschedule II opioid drug., 150, cm, 07/23/21 22:44:0... Start Date: 08/06/21 Stop Date: 02/02/22 Status: Ordered lidocaine 5% topical ointment 1 application, Topically, 3 times a day, # 50 Gm, 2 Refills, Maintenance, 09/19/21 14:33:00 EST, Ointment, [facility], Partial fill upon patient request if the prescription is for a schedule II opioid drug., 1 application Topically 3 times... Start Date: 09/19/21 Status: Ordered methadone 5 mg oral tablet See Instructions, 1 tab PO in AM 2 tabs in Afternoon and 1 tab @ HS for pain, # 112 tablet, 0 Refills, Maintenance, 11/29/21 10:02:00 EST, Tablet, [facility], Partial fill upon patient request., 12/02/21, 150, cm, 11/25/21 9:27:00 EST, He[facility]... Start Date: 11/29/21 Status: Ordered naloxone 4 mg/0.1 mL nasal spray = 4 mg, Naris, Left, Once, may repeat every 2 to 3 minutes until patient responds, # 2 each, 0 Refills, Soft Stop, 12/13/19 13:32:00 EST, [facility], 166, cm, 12/13/19 [...] capsule, 1 Refills, Maintenance, 12/03/21 9:05:00 EST, [facility], 150, cm, 11/25/21 [...] Active Patent foramen ovale(Confirmed) 06/06/08 Active *BHN/CCA/CP-Xavier [facility]-[phone]/Health fpc, active care coordination(Confirmed) Active Neuropathic pain of [...] Back Pain Scale: 84 on 07/09/17; initial [place]: 14 on 07/09/17 5SOAPP-R: 21 on 07/09/17 6cardiology 2016 cited known PVCs Social History Social History Type Response Tobacco Use: 4 or less cigar ettes(less than 1/4 pack)/day in last 30 days. Sex Female Medical Equipment Implanted Date:01/18/21Target Site:Vagina Description Quantity MRI Company Model SLING SUSPEND FASCIA ERIN 2X 7 - COLO (16-6291) 1 [employer] Jeff Unknown JESSEE:No Information Assigning Authority: FDA
--- OUTSIDE RECORDS SUMMARY | 2023-06-22 17:19 | XMS_ITS | Continuity of Care Document ---
Author Name Unknown Organization [facility] Address [address] [place] [address]- Care Team Providers Care Wildlife Conservation Officer Name Role Phone Malik FRANCIS, Shanon Arshad Primary Care Physician [place] [facility] [place] 12/25/20 - 01/24/21 [facility] [address] [place] [address] Allergies, Adverse Reactions, Alerts Substance Reaction [...] 10/29/20 15:45:00 EST, Route to Pharmacy Electronically, [facility], replaces prio... Start Date: 10/29/20 Stop Date: 03/28/21 Status: Ordered methadone 5 mg oral tablet See Instructions, 1 tab PO in AM 2 tabs in Afternoon and 1 tab @ HS for pain, # 112 tablet, 0 Refills, Maintenance, 12/28/20 9:36:00 EST, Tablet, [facility], Partial fill upon patient request., 12/31/20, 149.86, cm, 11/09/20 12:49:00 EST, H... Start Date: 12/28/20 Status: Ordered naloxone 4 mg/0.1 mL nasal spray = 4 mg, Naris, Left, Once, may repeat every 2 to 3 minutes until patient responds, # 2 each, 0 Refills, Soft Stop, 12/13/19 13:32:00 EST, [facility], 166, cm, 12/13/19 12:42:00 [...] needed for muscle spasm, # 90 capsule, 0 Refills,Maintenance, 01/21/21 15:50:00 EDT, Capsule, [facility]/pharmacy #[id number], Partial fill upon patient request if the prescription is for a schedule II opioid drug... Start Date: 01/21/21 Stop Date: 02/20/21 Status: Ordered Problem List Condition Effective Dates [...] back pain(Confirmed) Active Anxiety and depression(Confirmed) Active Moderately severe recurrent major depression(Confirmed) Active Nicotine dependence, uncomplicated(Confirmed) Active Lower extremity pain(Confirmed) Active Spontanous paralysis of both legs(Confirmed) Active Patent foramen ovale(Confirmed) 06/06/08 Active *BHN/CCA/CP-Xavier [facility]-[phone]/Health alf, active care coordination(Confirmed) Active Neuropathic pain of [...] Back Pain Scale: 84 on 07/09/17; initial [place]: 14 on 07/09/17 4SOAPP-R: 21 on 07/09/17 Social History Social History Type Response Tobacco Use: 4 or less cigar ettes(less than 1/4 pack)/day in last 30 days. Sex Female Medical Equipment Implanted Date:01/18/21Target Site:Vagina Description Quantity MRI Company Model SLING SUSPEND FASCIA ERIN 2X 7 - COLO (47-9102) 1 [employer] Jeff Unknown JESSEE:No Information Assigning Authority: FDA
--- OUTSIDE RECORDS SUMMARY | 2023-06-22 17:19 | XMS_ITS | Continuity of Care Document ---
Author Name Unknown Organization [facility] Address [address] [place] [address]- Care Team Providers Care Diamond Sizer Name Role Phone Malik FRANCIS, Shanon H Primary Care Physician [facility] Date[facility]s): 01/28/21 - 02/04/21 [facility] [address] [address]- Attending Physician: Khushboo FRANCIS, Jareth Sandoval Admitting Physician: Khushboo FRANCIS, Jareth Sandoval Referring Physician: Chel Iglesias MD Allergies, Adverse Reactions, Alerts Substance Reaction [...] 10/29/20 15:45:00 EST, Route to Pharmacy Electronically, [facility], replaces prio... Start Date: 10/29/20 Stop Date: 03/28/21 Status: Ordered methadone 5 mg oral tablet See Instructions, 1 tab PO in AM 2 tabs in Afternoon and 1 tab @ HS for pain, # 112 tablet, 0 Refills, Maintenance, 01/29/21 16:24:00 EDT, Tablet, [facility], Partial fill upon patient request., 149.9, cm, 01/25/21 8:53:00 EDT, Height, 68.3... Start Date: 01/29/21 Status: Ordered naloxone 4 mg/0.1 mL nasal spray = 4 mg, Naris, Left, Once, may repeat every 2 to 3 minutes until patient responds, # 2 each, 0 Refills, Soft Stop, 12/13/19 13:32:00 EST, [facility], 166, cm, 12/13/19 12:42:00 [...] capsule, 0 Refills,Maintenance, 01/21/21 15:50:00 EDT, Capsule, [facility]/pharmacy #[id number], Partial fill upon patient request if [...] Active Patent foramen ovale(Confirmed) 06/06/08 Active *BHN/CCA/CP-Xavier [place]-[phone]/Health senior care, active care coordination(Confirmed) Active Neuropathic pain of lower extremity(Confirmed) Active Posttraumatic stress disorder(Confirmed) Active 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, Persistent moderate(Confirmed) Active Myelopathy(Confirmed) Active Syncope(Confirmed) 5 06/06/08 Active Back pain, mid(Confirmed) Active Urinary incontinence(Confirmed) Active 14th and 5th digit, s/p capsulotomy and left carpal tunnel release 2updated Oswestry Disability Index: 56% ( severe disability ) on 10/26/18; updated [place] Back Pain Scale: 77 on 10/27/18 3initial Oswestry Disability Index: 76% ( crippled ) on 07/09/17; initial [place] Back Pain Scale: 84 on 07/09/17; initial [place]: 14 on 07/09/17 4SOAPP-R: 21 on 07/09/17 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 Sex Female Medical Equipment Implanted Date:01/18/21Target Site:Vagina Description Quantity MRI Company Model SLING SUSPEND FASCIA ERIN 2X 7 - COLO (43-9221) 1 [employer] Jeff Unknown JESSEE:No Information Assigning Authority: FDA
--- OUTSIDE RECORDS SUMMARY | 2023-06-22 17:19 | XMS_ITS | Continuity of Care Document ---
Author Name Unknown Organization [facility] Address [address] [place] [address]- Care Team Providers Care It Business Systems Analyst Name Role Phone Petrona Mosher MD Primary Care Physician Encounter [facility] [place] Date(s): 07/14/22 - 08/13/22 [facility] [address] [place] [address] Allergies, Adverse Reactions, Alerts Substance Reaction [...] 3 Refills, Maintenance, 07/07/22 14:53:00 EDT, [facility], 149.86, cm, 06/24/22 13:07:00 EDT, Height, 69.9, kg, 01/29/22 13:59:00 EDT, Dry Weight Start Date: 07/07/22 Stop Date: 08/06/22 Status: Ordered naloxone 4 mg/0.1 mL nasal spray = 4 mg, Naris, Left, Once, may repeat every 2 to 3 minutes until patient responds, # 2 each, 0 Refills, Soft Stop, 12/13/19 13:32:00 EST, [facility], 166, cm, 12/13/19 12:42:00 [...] 1 Refills, Maintenance, 12/03/21 9:05:00 EST, [facility], 150, cm, 11/25/21 9:27:00 [...] Patent foramen ovale Confirmed 06/06/08 Active *BHN/CCA/BRADLEY-Xavier Lora-[phone]/He alth intermediate, active care coordination Confirmed Active Neuropathic pain [...] 72% ( crippled ) on 11/25/21; updated [place] Back Pain Scale: 87 on 11/25/21 3updated Oswestry Disability Index: 56% ( severe disability ) on 10/26/18; updated [place] Back Pain Scale: 77 on 10/27/18 4initial Oswestry Disability Index: 76% ( crippled ) on 07/09/17; initial [place] Back Pain Scale: 84 on 07/09/17; initial [place]: 14 on 07/09/17 5SOAPP-R: 21 on 07/09/17 [...] MRI Safety Implantable Status Assigning Authority Unknown [id number] Unknown 08/18/24 Unknown Unknown Active Unknown Patient Care team information Personnel Name: Petrona Mosher MD Address: Address: [address] [place] [address]
--- OUTSIDE RECORDS SUMMARY | 2023-06-22 17:19 | XMS_ITS | Continuity of Care Document ---
Author Name Unknown Organization [facility] Address [address] [place] [address]- Care Team Providers Care Manager Learning Name Role Phone Malik FRANCIS, Shanon Arshad Primary Care Physician Encounter [facility] Date(s): 06/22/20 - 07/22/20 [facility] [address] [place] [address]- [facility] Allergies, Adverse Reactions, Alerts Substance Reaction Severity [...] 05/15/20 14:07:00 EDT, Route to Pharmacy Electronically, [facility], 149.86, cm, :22:00 EDT, Height, 67.73, kg, 04/19/20 8:54:00 ED... Start Date: 05/15/20 Stop Date: 10/12/20 Status: Ordered methadone 5 mg oral tablet See Instructions, 1 tab PO in AM 2 tabs in Afternoon and 1 tab @ HS, # 112 tablet, 0 Refills, Maintenance, 06/25/20 19:54:00 EDT, Tablet, [facility], Partial fill upon patient request. Dose Increase on 06/22/2020 to 4 tabs a day, 149.86, cm,... Start Date: 06/25/20 Status: Ordered naloxone 4 mg/0.1 mL nasal spray = 4 mg, Naris, Left, Once, may repeat every 2 to 3 minutes until patient responds, # 2 each, 0 Refills, Soft Stop, 12/13/19 13:32:00 EST, [facility], 166, cm, 12/13/19 12:42:00 EST, [...] Patent foramen ovale(Confirmed) 06/06/08 Active *BHN/CCA/CP-Xavier [facility]-[phone]/Health senior living, active care coordination(Confirmed) Active Neuropathic [...] Back Pain Scale: 84 on 07/09/17; initial [place]: 14 on 07/09/17 4SOAPP-R: 21 on 07/09/17 Social History Social History Type Response Tobacco Use: 4 or less cigar ettes(less than 1/4 pack)/day in last 30 days. Sex Female
--- OUTSIDE RECORDS SUMMARY | 2023-06-22 17:19 | XMS_ITS | Continuity of Care Document ---
Author Name Unknown Organization [facility] Address [address] [place] [address]- Care Team Providers Care Locomotive Mechanic Name Role Phone Nomi FRANCIS, Petrona Primary Care Physician [place] [facility] [place] 06/10/22 - 07/24/22 [facility] [address] [place] [id number] Attending Physician: Delta Roberts MD Admitting Physician: [...] 3 Refills, Maintenance, 07/07/22 14:53:00 EDT, [facility], 149.86, cm, 06/24/22 13:07:00 EDT, Height, 69.9, [...] capsule, 1 Refills, Maintenance, 12/03/21 9:05:00 EST, [facility], 150, cm, 11/25/21 9:27:00 EST, [...] Confirmed Active Obstructive sleep apnea, mild Confirmed 2015 Active Lower extremity pain Confirmed Active Spontanous paralysis of both legs Confirmed Active Patent foramen ovale Confirmed 06/06/08 Active *BHN/CCA/Ramona Lora-[phone]/He alth correction, active care coordination Confirmed Active [...] Back Pain Scale: 84 on 07/09/17; initial [place]: 14 on 07/09/17 5SOAPP-R: 21 on 07/09/17 [...] MRI Safety Implantable Status Assigning Authority Unknown [id number] Unknown 08/18/24 Unknown Unknown Active Unknown Patient Care team information Personnel Name: Petrona Mosher MD Address: Address: [address] [place] [address]
--- OUTSIDE RECORDS SUMMARY | 2023-06-22 17:19 | XMS_ITS | Continuity of Care Document ---
Author Name Unknown Organization [facility] Address [address] [place] [address]- Care Team Providers Care Email Deployment Specialist Name Role Phone Petrona Mosher MD Primary Care Physician [phone] [place] [facility] [place] 11/20/21 - 12/20/21 [facility] [address] [place] [address]- Allergies, Adverse Reactions, Alerts Substance Reaction Severity [...] 5 Refills, Maintenance, 08/06/21 8:30:00 EDT, Tablet, [facility], Partial fill upon patient request if the prescription is for aschedule II opioid drug., 150, cm, 07/23/21 22:44:0... Start Date: 08/06/21 Stop Date: 02/02/22 Status: Ordered lidocaine 5% topical ointment 1 application, Topically, 3 times a day, # 50 Gm, 2 Refills, Maintenance, 09/19/21 14:33:00 EST, Ointment, [facility], Partial fill upon patient request if the prescription is for a schedule II opioid drug., 1 application Topically 3 times... Start Date: 09/19/21 Status: Ordered methadone 5 mg oral tablet See Instructions, 1 tab PO in AM 2 tabs in Afternoon and 1 tab @ HS for pain, # 112 tablet, 0 Refills, Maintenance, 11/29/21 10:02:00 EST, Tablet, [facility], Partial fill upon patient request., 12/02/21, 150, cm, 11/25/21 9:27:00 EST, [facility]... Start Date: 11/29/21 Status: Ordered naloxone 4 mg/0.1 mL nasal spray = 4 mg, Naris, Left, Once, may repeat every 2 to 3 minutes until patient responds, # 2 each, 0 Refills, Soft Stop, 12/13/19 13:32:00 EST, [facility], 166, cm, 12/13/19 [...] capsule, 1 Refills, Maintenance, 12/03/21 9:05:00 EST, [facility], 150, cm, 11/25/21 [...] Active Patent foramen ovale(Confirmed) 06/06/08 Active *BHN/CCA/CP-Xavier [facility]-[phone]/Health fpc, active care coordination(Confirmed) Active Neuropathic pain [...] 72% ( crippled ) on 11/25/21; updated [place] Back Pain Scale: 87 on 11/25/21 3updated Oswestry Disability Index: 56% ( severe disability ) on 10/26/18; updated [place] Back Pain Scale: 77 on 10/27/18 4initial Oswestry Disability Index: 76% ( crippled ) on 07/09/17; initial [place] Back Pain Scale: 84 on 07/09/17; initial [place]: 14 on 07/09/17 5SOAPP-R: 21 on 07/09/17 6cardiology 2016 cited known PVCs Social History Social History Type Response Tobacco Use: 4 or less cigar ettes(less than 1/4 pack)/day in last 30 days. Sex Female Medical Equipment Implanted Date:01/18/21Target Site:Vagina Description Quantity MRI Company Model SLING SUSPEND FASCIA ERIN 2X 7 - COLO (86-6420) 1 Coloplast Jeff Unknown JESSEE:No Information Assigning Authority: FDA
--- OUTSIDE RECORDS SUMMARY | 2023-06-22 17:19 | XMS_ITS | Continuity of Care Document ---
Author Name Unknown Organization [facility] Address [address] [place] [address]- Care Team Providers Care Senior Relationship Manager Name Role Phone Petrona Mosher MD Primary Care Physician [phone] Encounter [facility] Date(s): 05/28/22 - 06/04/[address] [address]- Attending Physician: Khushboo FRANCIS, Jareth Sandoval Admitting Physician: Jareth Cuello MD Referring Physician: Petrona Mosher MD Allergies, [...] 3 Refills, Maintenance, 02/28/22 16:35:00 EDT, Tablet, [facility] #[id number], Partial fill upon patient request if the [...] capsule, 1 Refills, Maintenance, 12/03/21 9:05:00 EST, [facility], 150, cm, 11/25/21 9:27:00 [...] Active Patent foramen ovale(Confirmed) 06/06/08 Active *BHN/CCA/CP-Xavier Trivedi-[phone]/Health prison, active care coordination(Confirmed) Active Neuropathic pain of [...] Back Pain Scale: 84 on 07/09/17; initial [place]: 14 on 07/09/17 5SOAPP-R: 21 on 07/09/17 6cardiology 2016 cited known PVCs Social History Social History Type Response Tobacco Use: 4 or less cigar ettes(less than 1/4 pack)/day in last 30 days. Sex Female Medical Equipment Implanted Date:01/18/21Target Site:Vagina Description Quantity MRI Company Model Fascia Olinda, SUSPEND [place] st, 2cm X 7cm, Human Allograft 1 Coloplast Jeff Unkno wn JESSEE:No Information Assigning Authority: FDA
--- OUTSIDE RECORDS SUMMARY | 2023-06-22 17:19 | XMS_ITS | Continuity of Care Document ---
Author Name Unknown Organization [facility] Address [address] [place] [address]- Care Team Providers Care Marketing Forecaster Name Role Phone Petrona Mosher MD Primary Care Physician [phone] En[place] [facility] [place] [id number] Date(s): 09/19/21 - 10/19/21 [facility] [address] [place] [address]- Attending Physician: Kelsey Cartagena Admitting Physician: Admtr, Kelsey Referring Physician: Admtr, Ar8 Allergies, Adverse Reactions, Alerts [...] 5 Refills, Maintenance, 08/06/21 8:30:00 EDT, Tablet, [facility], Partial fill upon patient request if the prescription is for aschedule II opioid drug., 150, cm, 07/23/21 22:44:0... Start Date: 08/06/21 Stop Date: 02/02/22 Status: Ordered lidocaine 5% topical ointment 1 application, Topically, 3 times a day, # 50 Gm, 2 Refills, Maintenance, 09/19/21 14:33:00 EST, Ointment, [facility], Partial fill upon patient request if the prescription is for a schedule II opioid drug., 1 application Topically 3 times... Start Date: 09/19/21 Status: Ordered methadone 5 mg oral tablet See Instructions, 1 tab PO in AM 2 tabs in Afternoon and 1 tab @ HS for pain, # 112 tablet, 0 Refills, Maintenance, 10/01/21 8:21:00 EST, Tablet, [facility], Partial fill upon patient request., 10/02/21, 150, cm, 09/19/21 14:05:00 EST, [facility]... Start Date: 10/01/21 Status: Ordered naloxone 4 mg/0.1 mL nasal spray = 4 mg, Naris, Left, Once, may repeat every 2 to 3 minutes until patient responds, # 2 each, 0 Refills, Soft Stop, 12/13/19 13:32:00 EST, [facility], 166, cm, 12/13/19 12:42:00 [...] Refills, Maintenance, 04/08/21 11:01:00 EDT, [facility], 149.9, cm, 03/27/21 13:01:00 EDT, Height, 68.3, [...] Active Patent foramen ovale(Confirmed) 06/06/08 Active *BHN/CCA/CP-Xavier [place]-[phone]/Health fci, active care coordination(Confirmed) Active Neuropathic pain [...] Back Pain Scale: 84 on 07/09/17; initial [place]: 14 on 07/09/17 4SOAPP-R: 21 on 07/09/17 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 Sex Female Medical Equipment Implanted Date:01/18/21Target Site:Vagina Description Quantity MRI Company Model SLING SUSPEND FASCIA ERIN 2X 7 - COLO (45-3940) 1 Coloplast Jeff Unknown JESSEE:No Information Assigning Authority: FDA
--- OUTSIDE RECORDS SUMMARY | 2023-06-22 17:19 | XMS_ITS | Continuity of Care Document ---
Author Name Unknown Organization [facility] Address [address] [place] [address]- Care Team Providers Care Want Ad Supervisor Name Role Phone Petrona Mosher MD Primary Care Physician Encounter [facility] [place] Date(s): 10/30/21 - 11/29/21 [facility] [address] [place] [address]- Allergies, Adverse Reactions, Alerts Substance Reaction Severity [...] 5 Refills, Maintenance, 08/06/21 8:30:00 EDT, Tablet, [facility], Partial fill upon patient request if the prescription is for aschedule II opioid drug., 150, cm, 07/23/21 22:44:0... Start Date: 08/06/21 Stop Date: 02/02/22 Status: Ordered lidocaine 5% topical ointment 1 application, Topically, 3 times a day, # 50 Gm, 2 Refills, Maintenance, 09/19/21 14:33:00 EST, Ointment, [facility], Partial fill upon patient request if the prescription is for a schedule II opioid drug., 1 application Topically 3 times... Start Date: 09/19/21 Status: Ordered methadone 5 mg oral tablet See Instructions, 1 tab PO in AM 2 tabs in Afternoon and 1 tab @ HS for pain, # 112 tablet, 0 Refills, Maintenance, 11/29/21 10:02:00 EST, Tablet, [facility], Partial fill upon patient request., 12/02/21, 150, cm, 11/25/21 9:27:00 EST, [facility]... Start Date: 11/29/21 Status: Ordered naloxone 4 mg/0.1 mL nasal spray = 4 mg, Naris, Left, Once, may repeat every 2 to 3 minutes until patient responds, # 2 each, 0 Refills, Soft Stop, 12/13/19 13:32:00 EST, [facility], 166, cm, 12/13/19 [...] Refills, Maintenance, 04/08/21 11:01:00 EDT, [facility], 149.9, cm, 03/27/21 13:01:00 EDT, Height, 68.3, [...] Patent foramen ovale(Confirmed) 06/06/08 Active *BHN/CCA/CP-Xavier [facility]-[phone]/Health snf, active care coordination(Confirmed) Active Neuropathic pain [...] Back Pain Scale: 84 on 07/09/17; initial [place]: 14 on 07/09/17 5SOAPP-R: 21 on 07/09/17 6cardiology 2016 cited known PVCs Social History Social History Type Response Tobacco Use: 4 or less cigar ettes(less than 1/4 pack)/day in last 30 days. Sex Female Medical Equipment Implanted Date:01/18/21Target Site:Vagina Description Quantity MRI Company Model SLING SUSPEND FASCIA ERIN 2X 7 - COLO (65-0245) 1 Coloplast Jeff Unknown JESSEE:No Information Assigning Authority: FDA
--- OUTSIDE RECORDS SUMMARY | 2023-06-22 17:20 | XMS_ITS | Continuity of Care Document ---
Author Name Unknown Organization [facility] Address [address] [place] [address]- Care Team Providers Care Emergency Management Program Specialist Name Role Phone Petrona Mosher MD Primary Care Physician En[place] [facility] [place] Date(s): 12/02/21 - 07/02/[address] [address] Discharge Disposition: A-D/C Home Attending Physician: Isaura Mosher MD Admitting Physician: Isaura Mosher MD Referring Physician: Maritza Kay NP Allergies, Adverse [...] 3 Refills, Maintenance, 02/28/22 16:35:00 EDT, Tablet, [facility]/pharmacy #[id number], Partial fill upon patient request if the [...] Refills, Maintenance, 12/03/21 9:05:00 EST, [facility], 150, cm, 11/25/21 9:27:00 [...] of both legs(Confirmed) Active Patent foramen ovale(Confirmed) 8/19/08 Active *BHN/CCA/CP-Xavier [facility]-[phone]/Health intermediate, active care coordination(Confirmed) Active Neuropathic pain of [...] Back Pain Scale: 84 on 07/09/17; initial [place]: 14 on 07/09/17 5SOAPP-R: 21 on [...] MRI Safety Implantable Status Assigning Authority Unknown [id number] Unknown 08/18/24 Unknown Unknown Active Unknown Care Team Personnel Name: Petrona Mosher MD Address: [address] [place] [address]
--- OUTSIDE RECORDS SUMMARY | 2023-06-22 17:20 | XMS_ITS | Continuity of Care Document ---
Author Name Unknown Organization [facility] Claudine macario's [facility] Address [address], [address] [place] [address]- Care Team Providers Care Tire Sorter Name Role Phone Petrona Mosher MD Primary Care Physician Encounter [facility] [place] Date(s): 10/26/22 - 11/25/22 [facility] Claudinekhloe Looney[facility] [address], [address]th Floor [place], [place] [address] Allergies, Adverse Reactions, Alerts Substance [...] 3 Refills, Maintenance, 07/07/22 14:53:00 EDT, [facility], 149.86, cm, 06/24/22 13:07:00 EDT, Height, 69.9, kg, 01/29/22 13:59:00 EDT, Dry Weight Start Date: 07/07/22 Stop Date: 08/06/22 Status: Ordered naloxone 4 mg/0.1 mL nasal spray = 4 mg, Naris, Left, Once, may repeat every 2 to 3 minutes until patient responds, # 2 each, 0 Refills, Soft Stop, 12/13/19 13:32:00 EST, [facility], 166, cm, 12/13/19 [...] capsule, 1 Refills, Maintenance, 12/03/21 9:05:00 EST, [facility], 150, cm, 11/25/21 9:27:00 ESTCarito... Start Date: 12/03/21 Status: Ordered Problem List [...] Patent foramen ovale Confirmed 06/06/08 Active *BHN/CCA/CP-Xavier Trivedi-[phone]/He alth detention, active care coordination Confirmed Active Neuropathic pain [...] Back Pain Scale: 84 on 07/09/17; initial [place]: 14 on 07/09/17 5SOAPP-R: 21 on 07/09/17 [...] MRI Safety Implantable Status Assigning Authority Unknown [id number] Unknown 08/18/24 Unknown Unknown Active Unknown Patient Care team information Care Team Personnel Name: Christie Han RN Position: S RN Member Role: Primary Care Nurse Name: Naomi Vazquez NP Position: [facility] Associate Professional Member Role: Primary Care Nurse Address: Address: [address] [place] [address] Infectious [place], [place] [address] Name: Petrona Mosher MD Position: [facility] Resident Member Role: PCP Address: Address: [address] Adult [place], [place] [address] Name: Kelly Hawk RN Position: [facility] OB RN Member Role: Primary Care Nurse Care Team Related Persons Name: DAILY CORONA Address: home [address], [place] Name: DAILY CORONA Address: home [address], [place] Name: DAILY SAAVEDRA Address: home [address] [place] [address] Name: DARRELL PRAKASH Address: home [address] [place] [address] Name: INGA PAGE Name: HOLDEN STALLWORTH Address: home [address] [place] [address]
--- OUTSIDE RECORDS SUMMARY | 2023-06-22 17:20 | XMS_ITS | Continuity of Care Document ---
Author Name Unknown Organization [facility] Address [address], [address], [address] [place] [address]- Care Team Providers Care Respiratory Technician Name Role Phone Malik FRANCIS, Shanon Arshad Primary Care Physician [place] [facility] [place] 02/15/20 - 06/14/20 [facility] [address], [address], [address] [place] [address] [facility] Attending Physician: Inderjit Roe MD Admitting Physician: [...] 05/15/20 14:07:00 EDT, Route to Pharmacy Electronically, [facility], 149.86, cm, 206:22:00 EDT, Height, 67.73, kg, 04/19/20 8:54:00 ED... Start Date: 05/15/20 Stop Date: 10/12/20 Status: Ordered methadone 5 mg oral tablet 1 tablet = 5 mg, By Mouth, Every 8 hours, intractable pain, # 84 tablet, 0 Refills, Maintenance, 05/24/20 12:25:00 EDT, Tablet, [facility], Partial fill upon patient request., 05/25/20, 149.86, cm, 04/27/20 6:22:00 EDT, Height, 67.73, kg, 0... Start Date: 05/24/20 Stop Date: 06/21/20 Status: Ordered naloxone 4 mg/0.1 mL nasal spray = 4 mg, Naris, Left, Once, may repeat every 2 to 3 minutes until patient responds, # 2 each, 0 Refills, Soft Stop, 12/13/19 13:32:00 EST, [facility], 166, cm, 12/13/19 [...] foramen ovale(Confirmed) 06/06/08 Active *BHN/CCA/CP-Xavier [facility]-[phone]/Health assisted, active care coordination(Confirmed) Active Neuropathic pain of [...] Back Pain Scale: 84 on 07/09/17; initial [place]: 14 on 07/09/17 4SOAPP-R: 21 on 07/09/17 Social History Social History Type Response Tobacco Use: 4 or less cigar ettes(less than 1/4 pack)/day in last 30 days. Sex Female
--- OUTSIDE RECORDS SUMMARY | 2023-06-22 17:20 | XMS_ITS | Continuity of Care Document ---
Author Name Unknown Organization [facility] Address [address] [place] [address]- Care Team Providers Care Brewmaster Name Role Phone Petrona Mosher MD Primary Care Physician [place] [facility] [place] - 06/26/21 [facility] [address] [place] [address]- Allergies, Adverse Reactions, Alerts Substance Reaction Severity [...] 04/12/21 15:07:00 EDT, Route to Pharmacy Electronically, [facility], 149.9, cm... Start Date: 04/12/21 Status: Ordered methadone 5 mg oral tablet See Instructions, 1 tab PO in AM 2 tabs in Afternoon and 1 tab @ HS for pain, # 112 tablet, 0 Refills, Maintenance, 05/29/21 11:31:00 EDT, Tablet, [facility], Partial fill upon patient request., 05/29/21, 150, cm, 04/15/21 19:35:00 EDT, Hei... Start Date: 05/29/21 Status: Ordered naloxone 4 mg/0.1 mL nasal spray = 4 mg, Naris, Left, Once, may repeat every 2 to 3 minutes until patient responds, # 2 each, 0 Refills, Soft Stop, 12/13/19 13:32:00 EST, [facility], 166, cm, 12/13/19 [...] Refills, Maintenance, 04/08/21 11:01:00 EDT, [facility], 149.9, cm, 03/27/21 13:01:00 EDT, Height, 68.3, [...] ovale(Confirmed) 06/06/08 Active *BHN/CCA/CP-Xavier [facility]-[phone]/Health snf, active care coordination(Confirmed) Active Neuropathic pain [...] Back Pain Scale: 84 on 07/09/17; initial [place]: 14 on 07/09/17 4SOAPP-R: 21 on 07/09/17 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 Sex Female Medical Equipment Implanted Date:01/18/21Target Site:Vagina Description Quantity MRI Company Model SLING SUSPEND FASCIA ERIN 2X 7 - COLO (53-9193) 1 Coloplast Jeff Unknown JESSEE:No Information Assigning Authority: FDA
--- OUTSIDE RECORDS SUMMARY | 2023-06-22 17:20 | XMS_ITS | Continuity of Care Document ---
Author Name Unknown Organization [facility] Address [address] [place] [address]- Care Team Providers Care Fixture Repairer Fabricator Name Role Phone Malik FRANCIS, Shanon Arshad Primary Care Physician ( [phone] Encounter [facility] Date(s): 02/07/21 - 03/09/21 [facility] [address] [place] [id number]- Attending Physician: Kelsey Cartagena Admitting Physician: Kelsey [...] He... Start Date: 12/13/19 Status: Ordered ergocalciferol 88087 iu oral capsule 50,000 International_Units, 1, capsule, By Mouth, Every week, for 30 days, # 5 capsule, Refills 1, Tot. Refills 1, Acute 04/20/21 12:17:00 EDT, 02/19/21 12:17:00 EDT, Route to Pharmacy Electronically, [facility], Partial fill upon [...] 10/29/20 15:45:00 EST, Route to Pharmacy Electronically, [facility], replaces prio... Start Date: 10/29/20 Stop Date: 03/28/21 Status: Ordered methadone 5 mg oral tablet See Instructions, 1 tab PO in AM 2 tabs in Afternoon and 1 tab @ HS for pain, # 112 tablet, 0 Refills, Maintenance, 02/26/21 10:37:00 EDT, Tablet, [facility], Partial fill upon patient request., 02/28/21, 149.9, cm, 02/25/21 9:46:00 EDT, He... 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 Sex Female Medical Equipment Implanted Date:01/18/21Target Site:Vagina Description Quantity MRI Company Model SLING SUSPEND FASCIA ERIN 2X 7 - COLO (41-3241) 1 [employer]oplast Jeff Unknown JESSEE:No Information Assigning Authority: FDA
--- OUTSIDE RECORDS SUMMARY | 2023-06-22 17:20 | XMS_ITS | Continuity of Care Document ---
Author Name Unknown Organization [facility] Address Unknown Care Team Providers Care Life Skills Consultant Name Role Phone Petrona Mosher MD Primary Care Physician Encounter [facility] Date(s): 12/02/21 - 01/01/22 [facility] Attending Physician: Kelsey Cartagena Admitting Physician: Kelsey Cartagena Referring Physician: Kelsey Cartagena Allergies, Adverse Reactions, Alerts Substance Reaction Severity [...] 5 Refills, Maintenance, 08/06/21 8:30:00 EDT, Tablet, [facility], Partial fill upon patient request if the prescription is for aschedule II opioid drug., 150, cm, 07/23/21 22:44:0... Start Date: 08/06/21 Stop Date: 02/02/22 Status: Ordered lidocaine 5% topical ointment 1 application, Topically, 3 times a day, # 50 Gm, 2 Refills, Maintenance, 09/19/21 14:33:00 EST, Ointment, [facility], Partial fill upon patient request if the prescription is for a schedule II opioid drug., 1 application Topically 3 times... Start Date: 09/19/21 Status: Ordered methadone 5 mg oral tablet See Instructions, 1 tab PO in AM 2 tabs in Afternoon and 1 tab @ HS for pain, # 112 tablet, 0 Refills, Maintenance, 12/30/21 8:36:00 EDT, Tablet, [facility], Partial fill upon patient request., 12/31/21, 150, cm, 11/25/21 9:27:00 EST, Heigh... Start Date: 12/30/21 Status: Ordered naloxone 4 mg/0.1 mL nasal spray = 4 mg, Naris, Left, Once, may repeat every 2 to 3 minutes until patient responds, # 2 each, 0 Refills, Soft Stop, 12/13/19 13:32:00 EST, [facility], 166, cm, 12/13/19 12:42:00 [...] 1 Refills, Maintenance, 12/03/21 9:05:00 EST, [facility], 150, cm, 11/25/21 9:27:00 [...] Active Patent foramen ovale(Confirmed) 06/06/08 Active *BHN/CCA/CP-Xavier [facility]-[phone]/Health [facility], active care coordination(Confirmed) Active Neuropathic pain [...] Back Pain Scale: 84 on 07/09/17; initial [place]: 14 on 07/09/17 5SOAPP-R: 21 on 07/09/17 6cardiology 2016 cited known PVCs Social History Social History Type Response Tobacco Use: 4 or less cigar ettes(less than 1/4 pack)/day in last 30 days. Sex Female Medical Equipment Implanted Date:01/18/21Target Site:Vagina Description Quantity MRI Company Model SLING SUSPEND FASCIA ERIN 2X 7 - COLO ([id number]) 1 [employer]oplast Jeff Unknown JESSEE:No Information Assigning Authority: FDA
--- OUTSIDE RECORDS SUMMARY | 2023-06-22 17:20 | XMS_ITS | Continuity of Care Document ---
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 Start Date: 04/24/20 Stop Date: 05/22/20 Status: Ordered naloxone 4 mg/0.1 mL nasal spray = 4 mg, Naris, Left, Once, may repeat every 2 to 3 minutes until patient responds, # 2 each, 0 Refills, Soft Stop, 12/13/19 13:32:00 EST, [facility], 166, cm, 12/13/19 12:42:00 EST, Height, 82.6, kg, 07/05/18 18:39:00 EDT, Dry Weight Start Date: 12/13/19 Status: Ordered oxyCODONE 5 mg oral tablet 5 mg, 1, tablet, By Mouth, Every 6 hours, PRN, # 12 tablet, Refills 0, Tot. Refills 0, Acute 04/30/20 8:39:00 EDT, as needed for pain, 04/27/20 8:39:00 EDT, Route to Pharmacy Electronically, [facility], Partial fill upon patient request, 14... Start Date: 04/27/20 Stop Date: 04/30/20 Status: Ordered ProAir HFA 90 mcg/inh inhalation aerosol with adapter 2, puffs, Inhalation, Every 4 hours, PRN, # 8.5 Gm, Refills 0, Maintenance, 05/30/16 15:04:51, Aerosol Start Date: 05/30/16 Status: Ordered SMZ-TMP DS 800 mg-160 mg oral tablet 1 tablet, By Mouth, Every 12 hours, for 5 days, # 10 tablet, 0 Refills, Acute 05/02/20 8:40:00 EDT,04/27/20 8:40:00 EDT, Tablet, [facility], 1 tablet By Mouth Every 12 hours,x5 days, 149.86, cm, 04/27/20 6:22:00 EDT, Height, 67.73, kg, ... Start Date: 04/27/20 Stop Date: 05/02/20 Status: Ordered Problem List Condition Effective Dates [...] legs(Confirmed) Active Patent foramen ovale(Confirmed) 06/06/08 Active *BHN/CCA/BRADLEY-Xavier [facility]-[phone]/Health alf, active care coordination(Confirmed) Active Neuropathic pain [...] Back Pain Scale: 84 on 07/09/17; initial [place]: 14 on 07/09/17 4SOAPP-R: 21 on 07/09/17 Results Radiology Reports * Exam Date Time Procedure Performing Provider Status 04/27/20 8:24 AM C-Arm < 1 Hour Brandi DelC id; Auth (Verified) Notes: (C-Arm < 1 Hour) Reason For Exam: interstim removal RESULT: C-Arm < 1 Hour C-Arm < 1 Hour INDICATION: Reason: interstim removal; Special Instructions: TT: 20 min FT: 5 sec DAP: 1.34mGy 2 images COMPARISONS: None TECHNIQUE: Fluoroscopy support was provided. There was no radiologist in attendance. Fluoroscopy time: 5.2 seconds Technologist time: 20 minutes Exposure: 1.34 mGy FINDINGS: Fluoroscopy support was provided. There was no radiologist in attendance. IMPRESSION: See above. WSN: [id number] Ordering Physician: Charles Brock Dictated By: Sunny Love MD Dictated Date/Time: 04/27/20 11:02 a Reviewed By: Sunny Love MD Signed By: Sunny Love MD Signed Date/Time: 04/27/20 11:02 am Transcribed By: LINDA Transcribed Date/Time: 04/27/20 11:01 am Vital Signs Most recent to oldest [Reference Range]: 1 2 3 Height 149.86 cm (04/27/20 6:22 AM) 149.86 cm (04/19/20 8:54 AM) Weight 65.2 kg (04/27/20 6:22 AM) Oxygen Saturation [94-100 %] 98 % (04/27/20 10:15 AM) 99 % (04/27/20 10:00 AM) 100 % (04/27/20 9:45 AM) Pulse Rate [55-90 bpm] 56 bpm (04/27/20 6:22 AM) Body Mass Index [18.5-24.99] 29.03 *H* (04/27/20 6:22 AM) Blood Pressure [90-138/55-84 mm Hg] 97/64mm Hg (04/27/20 10:15 AM) 103/67mm Hg (04/27/20 10:00 AM) 109/73mm Hg (04/27/20 9:45 AM) Respiratory Rate [16-30 br/min] 18 br/min (04/27/20 10:15 AM) 17 br/min (04/27/20 10:00 AM) 18 br/min (04/27/20 9:45 AM) Temperature [96.8-100.4 DegF] 97.8 DegF (04/27/20 10:45 AM) 97.9 DegF (04/27/20 8:45 AM) 97.4 DegF (04/27/20 6:22 AM) Liters per Minute 2 L/min (04/27/20 9:30 AM) 2 L/min (04/27/20 9:15 AM) 6 L/min (04/27/20 9:00 AM) Mode of Delivery (Oxygen) Room air (04/27/20 10:15 AM) Room air (04/27/20 10:00 AM) Room air (04/27/20 9:45 AM) Blood pressure sites Arm, left (04/27/20 8:45 AM) Arm, left (04/27/20 6:22 AM) Temperature Route Temporal (04/27/20 10:45 AM) Temporal (04/27/20 8:45 AM) Temporal (04/27/20 6:22 AM) Dry Weight 67.73 kg (04/19/20 8:54 AM) Weight Obtained Via Standing scale (04/27/20 6:22 AM) Social History Social History Type Response Tobacco Use: 4 or less cigar ettes(less than 1/4 pack)/day in last 30 days. Sex Female
--- OUTSIDE RECORDS SUMMARY | 2023-06-22 17:20 | XMS_ITS | Continuity of Care Document ---
Author Name Unknown Organization [facility] [place] Address [address] [place] [address]- Care Team Providers Care Family Day Care Worker Name Role Phone Petrona Mosher MD Primary Care Physician Encounter [facility] Date(s): 11/13/21 - 11/19/[address] [id number] Discharge Disposition: A-D/C Home Attending Physician: Maritza Kay NP Admitting Physician: [...] Maintenance, 08/06/21 8:30:00 EDT, Tablet, [facility], Partial fill upon patient request if the prescription is for aschedule II opioid drug., 150, cm, 07/23/21 22:44:0... Start Date: 08/06/21 Stop Date: 02/02/22 Status: Ordered lidocaine 5% topical ointment 1 application, Topically, 3 times a day, # 50 Gm, 2 Refills, Maintenance, 09/19/21 14:33:00 EST, Ointment, [facility], Partial fill upon patient request if the prescription is for a schedule II opioid drug., 1 application Topically 3 times... Start Date: 09/19/21 Status: Ordered methadone 5 mg oral tablet See Instructions, 1 tab PO in AM 2 tabs in Afternoon and 1 tab @ HS for pain, # 112 tablet, 0 Refills, Maintenance, 11/01/21 11:10:00 EST, Tablet, [facility], Partial fill upon patient request., 11/02/21, 150, cm, 10/02/21 13:09:00 EST, Hei... Start Date: 11/01/21 Status: Ordered naloxone 4 mg/0.1 mL nasal spray = 4 mg, Naris, Left, Once, may repeat every 2 to 3 minutes until patient responds, # 2 each, 0 Refills, Soft Stop, 12/13/19 13:32:00 EST, [facility], 166, cm, 12/13/19 12:42:00 [...] Refills, Maintenance, 04/08/21 11:01:00 EDT, [facility], 149.9, cm, 03/27/21 13:01:00 EDT, Height, 68.3, [...] Active Patent foramen ovale(Confirmed) 06/06/08 Active *BHN/CCA/CP-Xavier [facility]-[phone]/Health halfway, active care coordination(Confirmed) Active Neuropathic pain of [...] Back Pain Scale: 84 on 07/09/17; initial [place]: 14 on 07/09/17 4SOAPP-R: 21 on 07/09/17 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 Sex Female Medical Equipment Implanted Date:01/18/21Target Site:Vagina Description Quantity MRI Company Model SLING SUSPEND FASCIA ERIN 2X 7 - COLO (58-1524) 1 [employer] Jeff Unknown JESSEE:No Information Assigning Authority: FDA
--- OUTSIDE RECORDS SUMMARY | 2023-06-22 17:20 | XMS_ITS | Continuity of Care Document ---
Author Name Unknown Organization [facility] Address [address] [place] [address]- Care Team Providers Care Avionics Technician Name Role Phone Petrona Mosher MD Primary Care Physician Encounter [facility] Date(s): 04/26/21 - 05/26/21 [facility] [address] [place] [id number] Allergies, Adverse Reactions, Alerts Substance [...] 04/12/21 15:07:00 EDT, Route to Pharmacy Electronically, [facility], 149.9, cm... Start Date: 04/12/21 Status: Ordered methadone 5 mg oral tablet See Instructions, 1 tab PO in AM 2 tabs in Afternoon and 1 tab @ HS for pain, # 112 tablet, 0 Refills, Maintenance, 04/29/21 8:08:00 EDT, Tablet, [facility], Partial fill upon patient request., 04/30/21, 150, cm, 04/15/21 19:35:00 EDT, Heig... Start Date: 04/29/21 Status: Ordered naloxone 4 mg/0.1 mL nasal spray = 4 mg, Naris, Left, Once, may repeat every 2 to 3 minutes until patient responds, # 2 each, 0 Refills, Soft Stop, 12/13/19 13:32:00 EST, [facility], 166, cm, 12/13/19 12:42:00 [...] Refills, Maintenance, 04/08/21 11:01:00 EDT, [facility], 149.9, cm, 03/27/21 13:01:00 EDT, Height, 68.3, [...] Active Patent foramen ovale(Confirmed) 06/06/08 Active *BHN/CCA/CP-Xavier [facility]-[phone]/Health ch[facility], active care coordination(Confirmed) Active Neuropathic pain [...] Back Pain Scale: 84 on 07/09/17; initial [place]: 14 on 07/09/17 4SOAPP-R: 21 on 07/09/17 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 Sex Female Medical Equipment Implanted Date:01/18/21Target Site:Vagina Description Quantity MRI Company Model SLING SUSPEND FASCIA ERIN 2X 7 - COLO (11-8451) 1 [employer] Jeff Unknown JESSEE:No Information Assigning Authority: FDA
--- OUTSIDE RECORDS SUMMARY | 2023-06-22 17:20 | XMS_ITS | Continuity of Care Document ---
Author Name Unknown Organization [facility] Address [address] [place] [phone]- Care Team Providers Care Preschool Assistant Director Name Role Phone Petrona Mosher MD Primary Care Physician Encounter [facility] Date(s): 03/28/21 - 04/27/21 [facility] [address] [place] [id number] Allergies, Adverse Reactions, Alerts Substance Reaction [...] 04/12/21 15:07:00 EDT, Route to Pharmacy Electronically, [facility], 149.9, cm... Start Date: 04/12/21 Status: Ordered methadone 5 mg oral tablet See Instructions, 1 tab PO in AM 2 tabs in Afternoon and 1 tab @ HS for pain, # 112 tablet, 0 Refills, Maintenance, 03/29/21 9:45:00 EDT, Tablet, [facility], Partial fill upon patient request., 149.9, cm, 03/27/21 13:01:00 EDT, Height, 68.3... Start Date: 03/29/21 Status: Ordered naloxone 4 mg/0.1 mL nasal spray = 4 mg, Naris, Left, Once, may repeat every 2 to 3 minutes until patient responds, # 2 each, 0 Refills, Soft Stop, 12/13/19 13:32:00 EST, [facility], 166, cm, 12/13/19 [...] Refills, Maintenance, 04/08/21 11:01:00 EDT, [facility], 149.9, cm, 03/27/21 13:01:00 EDT, Height, 68.3, [...] Active Patent foramen ovale(Confirmed) 06/06/08 Active *BHN/CCA/CP-Xavier [facility]-[phone]/Health nursing home, active care coordination(Confirmed) Active Neuropathic [...] Back Pain Scale: 84 on 07/09/17; initial [place]: 14 on 07/09/17 4SOAPP-R: 21 on 07/09/17 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 Sex Female Medical Equipment Implanted Date:01/18/21Target Site:Vagina Description Quantity MRI Company Model SLING SUSPEND FASCIA ERIN 2X 7 - COLO (57-5302) 1 [employer]oplast Jeff Unknown JESSEE:No Information Assigning Authority: FDA
--- OUTSIDE RECORDS SUMMARY | 2023-06-22 17:20 | XMS_ITS | Continuity of Care Document ---
Author Name Unknown Organization [facility] Address [address] [place] [address]- Care Team Providers Care Manager Purchasing Name Role Phone Malik FRANCIS, Shanon Arshad Primary Care Physician [facility] Date(s): 06/28/20 - 07/28/20 [facility] [address] [place] [address]- [facility] Allergies, Adverse Reactions, Alerts Substance Reaction Severity [...] 05/15/20 14:07:00 EDT, Route to Pharmacy Electronically, [facility], 149.86, cm, 206:22:00 EDT, Height, 67.73, kg, 04/19/20 8:54:00 ED... Start Date: 05/15/20 Stop Date: 10/12/20 Status: Ordered methadone 5 mg oral tablet See Instructions, 1 tab PO in AM 2 tabs in Afternoon and 1 tab @ HS for pain, # 112 tablet, 0 Refills, Maintenance, 07/27/20 16:56:00 EDT, Tablet, [facility], Partial fill upon patient request. Dose Increase on 06/22/2020 to 4 tabs a day, 149... Start Date: 07/27/20 Status: Ordered naloxone 4 mg/0.1 mL nasal spray = 4 mg, Naris, Left, Once, may repeat every 2 to 3 minutes until patient responds, # 2 each, 0 Refills, Soft Stop, 12/13/19 13:32:00 EST, [facility], 166, cm, 12/13/19 12:42:00 [...] Active Patent foramen ovale(Confirmed) 06/06/08 Active *BHN/CCA/CP-Xavier [facility]-[phone]/Health [facility], active care coordination(Confirmed) [...] Back Pain Scale: 84 on 07/09/17; initial [place]: 14 on 07/09/17 4SOAPP-R: 21 on 07/09/17 Social History Social History Type Response Tobacco Use: 4 or less cigar ettes(less than 1/4 pack)/day in last 30 days. Sex Female
--- OUTSIDE RECORDS SUMMARY | 2023-06-22 17:20 | XMS_ITS | Continuity of Care Document ---
Author Name Unknown Organization [facility] Address [address] [place] [address]- Care Team Providers Care Ceramics Test Engineer Name Role Phone Petrona Mosher MD Primary Care Physician Encounter [facility] Date(s): 09/02/21 - 10/02/21 [facility] [address] [place] [address]- Allergies, Adverse Reactions, Alerts Substance Reaction Severity [...] 5 Refills, Maintenance, 08/06/21 8:30:00 EDT, Tablet, [facility], Partial fill upon patient request if the prescription is for aschedule II opioid drug., 150, cm, 07/23/21 22:44:0... Start Date: 08/06/21 Stop Date: 02/02/22 Status: Ordered lidocaine 5% topical ointment 1 application, Topically, 3 times a day, # 50 Gm, 2 Refills, Maintenance, 09/19/21 14:33:00 EST, Ointment, [facility], Partial fill upon patient request if the prescription is for a schedule II opioid drug., 1 application Topically 3 times... Start Date: 09/19/21 Status: Ordered methadone 5 mg oral tablet See Instructions, 1 tab PO in AM 2 tabs in Afternoon and 1 tab @ HS for pain, # 112 tablet, 0 Refills, Maintenance, 10/01/21 8:21:00 EST, Tablet, [facility], Partial fill upon patient request., 10/02/21, 150, cm, 09/19/21 14:05:00 EST, Heig... Start Date: 10/01/21 Status: Ordered naloxone 4 mg/0.1 mL nasal spray = 4 mg, Naris, Left, Once, may repeat every 2 to 3 minutes until patient responds, # 2 each, 0 Refills, Soft Stop, 12/13/19 13:32:00 EST, [facility], 166, cm, 12/13/19 12:42:00 [...] Refills, Maintenance, 04/08/21 11:01:00 EDT, [facility], 149.9, cm, 03/27/21 13:01:00 EDT, Height, 68.3, [...] Active Patent foramen ovale(Confirmed) 06/06/08 Active *BHN/CCA/CP-Xavier [facility]-[phone]/Health [facility], active care coordination(Confirmed) Active Neuropathic pain [...] Back Pain Scale: 84 on 07/09/17; initial [place]: 14 on 07/09/17 4SOAPP-R: 21 on 07/09/17 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 Sex Female Medical Equipment Implanted Date:01/18/21Target Site:Vagina Description Quantity MRI Company Model SLING SUSPEND FASCIA ERIN 2X 7 - COLO ([id number]) 1 [employer] Jeff Unknown JESSEE:No Information Assigning Authority: FDA
--- OUTSIDE RECORDS SUMMARY | 2023-06-22 17:20 | XMS_ITS | Continuity of Care Document ---
Author Name Unknown Organization [facility] Address [address] [place] [address]- Care Team Providers Care Aws Consultant Name Role Phone Malik FRANCIS, Shanon Arshad Primary Care Physician Encounter [facility] Date(s): 03/11/21 - 04/12/21 [facility] [address] [place] [address]- Attending Physician: Poonam Mayes NP Admitting Physician: Poonam Mayes NP Referring Physician: Layne España CNM Allergies, Adverse Reactions, Alerts Substance Reaction Severity [...] He... Start Date: 12/13/19 Status: Ordered ergocalciferol 81367 iu oral capsule 50,000 International_Units, 1, capsule, By Mouth, Every week, for 30 days, # 5 capsule, Refills 1, Tot. Refills 1, Acute 04/20/21 12:17:00 EDT, 02/19/21 12:17:00 EDT, Route to Pharmacy Electronically, [facility], Partial fill upon patient r... Start Date: [...] 04/12/21 15:07:00 EDT, Route to Pharmacy Electronically, [facility], 149.9, cm... Start Date: 04/12/21 Status: Ordered methadone 5 mg oral tablet See Instructions, 1 tab PO in AM 2 tabs in Afternoon and 1 tab @ HS for pain, # 112 tablet, 0 Refills, Maintenance, 03/29/21 9:45:00 EDT, Tablet, [facility], Partial fill upon patient request., 149.9, cm, 03/27/21 13:01:00 EDT, Height, 68.3... Start Date: 03/29/21 Status: Ordered naloxone 4 mg/0.1 mL nasal spray = 4 mg, Naris, Left, Once, may repeat every 2 to 3 minutes until patient responds, # 2 each, 0 Refills, Soft Stop, 12/13/19 13:32:00 EST, [facility], 166, cm, 12/13/19 12:42:00 [...] Refills, Maintenance, 04/08/21 11:01:00 EDT, [facility], 149.9, cm, 03/27/21 13:01:00 EDT, Height, 68.3, [...] Active Patent foramen ovale(Confirmed) 06/06/08 Active *BHN/CCA/CP-Xavier [facility]-[phone]/Health intermediate, active care coordination(Confirmed) Active Neuropathic pain [...] Back Pain Scale: 84 on 07/09/17; initial [place]: 14 on 07/09/17 4SOAPP-R: 21 on 07/09/17 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 Sex Female Medical Equipment Implanted Date:01/18/21Target Site:Vagina Description Quantity MRI Company Model SLING SUSPEND FASCIA ERIN 2X 7 - COLO (67-0378) 1 [employer] Jeff Unknown JESSEE:No Information Assigning Authority: FDA
--- OUTSIDE RECORDS SUMMARY | 2023-06-22 17:20 | XMS_ITS | Continuity of Care Document ---
Author Name Unknown Organization [facility] Address [address] [place] [address]- Care Team Providers Care Ordnance Truck Installation Supervisor Name Role Phone Petrona Mosher MD Primary Care Physician [phone] Encounter [facility] [place] Date(s): 06/24/22 - 07/24/22 [facility] [address] [place] [address] Attending Physician: Kelsey Cartagena Admitting Physician: Kelsey [...] 3 Refills, Maintenance, 07/07/22 14:53:00 EDT, [facility], 149.86, cm, 06/24/22 13:07:00 EDT, Height, 69.9, kg, 01/29/22 13:59:00 EDT, Dry Weight Start Date: 07/07/22 Stop Date: 08/06/22 Status: Ordered naloxone 4 mg/0.1 mL nasal spray = 4 mg, Naris, Left, Once, may repeat every 2 to 3 minutes until patient responds, # 2 each, 0 Refills, Soft Stop, 12/13/19 13:32:00 EST, [facility], 166, cm, 12/13/19 [...] capsule, 1 Refills, Maintenance, 12/03/21 9:05:00 EST, [facility], 150, cm, 11/25/21 [...] Patent foramen ovale Confirmed 06/06/08 Active *BHN/CCA/CP-Xavier Trivedi-[phone]/He alth long-term, active care coordination Confirmed Active Neuropathic pain [...] 72% ( crippled ) on 11/25/21; updated [place] Back Pain Scale: 87 on 11/25/21 3updated Oswestry Disability Index: 56% ( severe disability ) on 10/26/18; updated [place] Back Pain Scale: 77 on 10/27/18 4initial Oswestry Disability Index: 76% ( crippled ) on 07/09/17; initial [place] Back Pain Scale: 84 on 07/09/17; initial [place]: 14 on 07/09/17 5SOAPP-R: 21 on 07/09/17 [...] MRI Safety Implantable Status Assigning Authority Unknown [id number] Unknown 08/18/24 Unknown Unknown Active Unknown Patient Care team information Personnel Name: Petrona Mosher MD Address: Address: [address] [place] [address]
--- OUTSIDE RECORDS SUMMARY | 2023-06-22 17:20 | XMS_ITS | Continuity of Care Document ---
Author Name Unknown Organization [facility] Address [address] [place] [address]- Care Team Providers Care Shrimp Peeling Machine Tender Name Role Phone Petrona Mosher MD Primary Care Physician En[place] [facility] [place] Date(s): 05/07/22 - 06/06/22 [facility] [address] [place] [address]- Attending Physician: Kelsey Cartagena Admitting Physician: AdmKelsey [...] 3 Refills, Maintenance, 02/28/22 16:35:00 EDT, Tablet, [facility]/pharmacy #0843, Partial fill upon patient request if the prescription is for a schedule II opioid drug., 149.86, cm, 01/29/22 13:59:... Start Date: 02/28/22 Stop Date: 06/28/22 Status: Ordered naloxone 4 mg/0.1 mL nasal spray = 4 mg, Naris, Left, Once, may repeat every 2 to 3 minutes until patient responds, # 2 each, 0 Refills, Soft Stop, 12/13/19 13:32:00 EST, [facility], 166, cm, 12/13/19 12:42:00 [...] capsule, 1 Refills, Maintenance, 12/03/21 9:05:00 EST, [facility], 150, cm, 11/25/21 9:27:00 [...] Active Patent foramen ovale(Confirmed) 06/06/08 Active *BHN/CCA/CP-Xavier Lora-[phone]/Health long term, active care coordination(Confirmed) Active Neuropathic [...] Back Pain Scale: 84 on 07/09/17; initial [place]: 14 on 07/09/17 5SOAPP-R: 21 on [...]
--- OUTSIDE RECORDS SUMMARY | 2023-06-22 17:20 | XMS_ITS | Continuity of Care Document ---
Author Name Unknown Organization [facility] Address [address] [place] [address]- Care Team Providers Care Refinery Operator Name Role Phone Petrona Mosher MD Primary Care Physician [phone] Encounter [facility] [place] Date(s): 06/03/21 - 07/03/[address] [address] Attending Physician: Kelsey Cartagena Admitting Physician: Kelsey Cartagena Referring Physician: AdmKelsey roland Allergies, Adverse Reactions, Alerts Substance Reaction Severity [...] 07/01/21 12:09:00 EDT, Route to Pharmacy Electronically, [facility], 150, cm, 04/15/21 19:35:00 EDT, Height, 72.7, kg, 04/15/21 19:35:00 EDT, Dry We... Start Date: 07/01/21 Status: Ordered methadone 5 mg oral tablet See Instructions, 1 tab PO in AM 2 tabs in Afternoon and 1 tab @ HS for pain, # 112 tablet, 0 Refills, Maintenance, 06/28/21 16:42:00 EDT, Tablet, [facility], [...] Refills, Maintenance, 04/08/21 11:01:00 EDT, [facility], 149.9, cm, 03/27/21 13:01:00 EDT, Height, 68.3, [...] legs(Confirmed) Active Patent foramen ovale(Confirmed) 06/06/08 Active *BHN/MELINDA/BRADLEY-Xavier Banuelos-[phone]/Health longterm, active care coordination(Confirmed) Active Neuropathic pain [...] Back Pain Scale: 84 on 07/09/17; initial [place]: 14 on 07/09/17 4SOAPP-R: 21 on 07/09/17 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 Sex Female Medical Equipment Implanted Date:01/18/21Target Site:Vagina Description Quantity MRI Company Model SLING SUSPEND FASCIA ERIN 2X 7 - COLO (62-2063) 1 [employer]oplast Jeff Unknown JESSEE:No Information Assigning Authority: FDA
--- OUTSIDE RECORDS SUMMARY | 2023-06-22 17:20 | XMS_ITS | Continuity of Care Document ---
Author Name Unknown Organization [facility] Address [address] [place] [address]- Care Team Providers Care V Belt Coverer Name Role Phone Malik FRANCIS, Shanon Arshad Primary Care Physician ( [phone] Encounter [facility] Date(s): 04/23/20 - 05/23/20 [facility] [address] [place] [address]- [facility] Referring Physician: Gisel Chinchilla Allergies, Adverse Reactions, [...] 05/15/20 14:07:00 EDT, Route to Pharmacy Electronically, [facility], 149.86, cm, :22:00 EDT, Height, 67.73, kg, 04/19/20 8:54:00 ED... Start Date: 05/15/20 Stop Date: 10/12/20 Status: Ordered methadone 5 mg oral tablet 1 tablet = 5 mg, By Mouth, Every 8 hours, intractable pain, # 84 tablet, 0 Refills, Maintenance, 04/24/20 12:36:00 EDT, Tablet, [facility], Partial fill upon patient request., 149.86, cm, 04/19/20 8:54:00 EDT, Height, 67.73, kg, 04/19/20 8:... Start Date: 04/24/20 Stop Date: 05/22/20 Status: Ordered naloxone 4 mg/0.1 mL nasal spray = 4 mg, Naris, Left, Once, may repeat every 2 to 3 minutes until patient responds, # 2 each, 0 Refills, Soft Stop, 12/13/19 13:32:00 EST, [facility], 166, cm, 12/13/19 [...] Active Patent foramen ovale(Confirmed) 06/06/08 Active *BHN/CCA/CP-Xavier [facility]-[phone]/Health group home, active care coordination(Confirmed) Active Neuropathic [...] Back Pain Scale: 84 on 07/09/17; initial [place]: 14 on 07/09/17 4SOAPP-R: 21 on 07/09/17 Social History Social History Type Response Tobacco Use: 4 or less cigar ettes(less than 1/4 pack)/day in last 30 days. Sex Female
--- OUTSIDE RECORDS SUMMARY | 2023-06-22 17:20 | XMS_ITS | Continuity of Care Document ---
Author Name Unknown Organization [facility] Address [address] [place] [address]- Care Team Providers Care Business Relations Manager Name Role Phone Petrona Mosher MD Primary Care Physician [place] [facility] [place] - 07/04/[address] [address]- Attending Physician: Kelsey Cartagena Admitting Physician: Kelsey [...] Note: VIS 04/19/12 2Admin Note: VIS given 7/26/11 3Admin Note: VIS GIVEN 4Admin Note: VIS [...] 3 Refills, Maintenance, 02/28/22 16:35:00 EDT, Tablet, [facility]/pharmacy #[id number], Partial fill upon patient request if [...] capsule, 1 Refills, Maintenance, 12/03/21 9:05:00 EST, [facility], 150, cm, 11/25/21 [...] Patent foramen ovale(Confirmed) 06/06/08 Active *BHN/CCA/CP-Xavier [facility]-[phone]/Health nursing home, active care coordination(Confirmed) Active Neuropathic [...] 72% ( crippled ) on 11/25/21; updated [place] Back Pain Scale: 87 on 11/25/21 3updated Oswestry Disability Index: 56% ( severe disability ) on 10/26/18; updated [place] Back Pain Scale: 77 on 10/27/18 4initial Oswestry Disability Index: 76% ( crippled ) on 07/09/17; initial [place] Back Pain Scale: 84 on 07/09/17; initial [place]: 14 on 07/09/17 5SOAPP-R: 21 on 07/09/17 [...] MRI Safety Implantable Status Assigning Authority Unknown [id number] Unknown 08/18/24 Unknown Unknown Active Unknown Care Team Personnel Name: Petrona Mosher MD Address: [address] [place] [address]
--- OUTSIDE RECORDS SUMMARY | 2023-06-22 17:20 | XMS_ITS | Continuity of Care Document ---
Author Name Unknown Organization [facility] Address [address] [place] [address]- Care Team Providers Care Lead Maintenance Technician Name Role Phone Petrona Mosher MD Primary Care Physician [phone] [place] [facility] [place] 12/26/21 - 01/25/22 [facility] [address] [place] [address] Allergies, Adverse Reactions, Alerts Substance Reaction Severity [...] 5 Refills, Maintenance, 08/06/21 8:30:00 EDT, Tablet, [facility], Partial fill upon patient request if the prescription is for aschedule II opioid drug., 150, cm, 07/23/21 22:44:0... Start Date: 08/06/21 Stop Date: 02/02/22 Status: Ordered methadone 5 mg oral tablet See Instructions, 1 tab PO in AM 2 tabs in Afternoon and 1 tab @ HS for pain, # 112 tablet, 0 Refills, Maintenance, 12/30/21 8:36:00 EDT, Tablet, [facility], Partial fill upon patient request., 12/31/21, 150, cm, 11/25/21 9:27:00 EST, [facility]igh... Start Date: 12/30/21 Status: Ordered naloxone 4 mg/0.1 mL nasal spray = 4 mg, Naris, Left, Once, may repeat every 2 to 3 minutes until patient responds, # 2 each, 0 Refills, Soft Stop, 12/13/19 13:32:00 EST, [facility], 166, cm, 12/13/19 [...] capsule, 1 Refills, Maintenance, 12/03/21 9:05:00 EST, [facility], 150, cm, 11/25/21 [...] Active Patent foramen ovale(Confirmed) 06/06/08 Active *BHN/CCA/CP-Xaviervicky Lora-[phone]/Health shelter, active care coordination(Confirmed) Active Neuropathic pain of [...] Back Pain Scale: 84 on 07/09/17; initial [place]: 14 on 07/09/17 5SOAPP-R: 21 on 07/09/17 6cardiology 2016 cited known PVCs Social History Social History Type Response Tobacco Use: 4 or less cigar ettes(less than 1/4 pack)/day in last 30 days. Sex Female Medical Equipment Implanted Date:01/18/21Target Site:Vagina Description Quantity MRI Company Model SLING SUSPEND FASCIA ERIN 2X 7 - COLO (93-3413) 1 [employer]oplast Jfef Unknown JESSEE:No Information Assigning Authority: FDA
--- OUTSIDE RECORDS SUMMARY | 2023-06-22 17:20 | XMS_ITS | Continuity of Care Document ---
Author Name Unknown Organization [facility] Address [address] [place] [address]- Care Team Providers Care Outside Operator Name Role Phone Petrona Mosher MD Primary Care Physician Encounter [facility] Date(s): 01/22/23 - 02/21/23 [facility] [address] [place] [address] Attending Physician: Kelsey Cartagena Admitting Physician: AdmKelsey [...] day, # 180 tablet, 3 Refills, Maintenance, 01/22/23 18:47:00 EDT, [facility]/pharmacy #[id number], 149.86, cm, 01/22/23 18:27:00 EDT, Height, 69.9, kg, 01/29/22 13:59:00 EDT, Dry Weight Start Date: 01/22/23 Stop Date: 05/22/23 Status: Ordered naloxone 4 mg/0.1 mL nasal spray = 4 mg, Naris, Left, Once, may repeat every 2 to 3 minutes until patient responds, # 2 each, 0 Refills, Soft Stop, 12/13/19 13:32:00 EST, [facility], 166, cm, 12/13/19 12:42:00 [...] day, PRN NEEDED FOR MUSCLE SPASM, # 270 capsule, 1 Refills, Maintenance, 01/22/23 18:47:00 EDT, [id number], 149.86, cm, 01/22/23 18:27:00 EDT, Height, 69.9, kg, 01/29/22 13:59:00 EDT, Dry Weight Start Date: 01/22/23 Status: Ordered Problem List Condition Confirmation Course [...] Patent foramen ovale Confirmed 06/06/08 Active *BHN/CCA/CP-Xavier Guido-[phone]/He alth mcc, active care coordination Confirmed Active Neuropathic pain [...] Back Pain Scale: 84 on 07/09/17; initial [place]: 14 on 07/09/17 5SOAPP-R: 21 on 07/09/17 [...] MRI Safety Implantable Status Assigning Authority Unknown [id number] Unknown 08/18/24 Unknown Unknown Active Unknown Cardiology * Event Display: [employer] Report Authored Date: Patient Care team information Care Team Personnel Name: Christie Han RN Position: [facility] RN Member Role: Primary Care Nurse Name: Naomi Vazquez NP Position: [facility] Associate Professional Member Role: Primary Care Nurse Address: Address: [address] [place] [address] [address]ious [address] Name: Petrona Mosher MD Position: [facility] Resident Member Role: PCP Address: Address: [address] [place] [address], [place] [address] Name: Kelly Hawk RN Position: [facility] OB RN Member Role: Primary Care Nurse Care Team Related Persons Name: DAILY CORONA Address: home [address] [place] [address] Name: DAILY CORONA Address: home [address] [place], [place] Name: DAILY SAAVEDRA Address: home [address] [place], [place] Name: DARRELL PRAKASH Address: home [address] [place] [address] Name: INGA PAGE Name: HOLDEN STALLWORTH Address: home [address] [place] [address]
--- OUTSIDE RECORDS SUMMARY | 2023-06-22 17:20 | XMS_ITS | Continuity of Care Document ---
Author Name Unknown Organization [facility] Address [address] [place] [address]- Care Team Providers Care Brothel Keeper Name Role Phone Petrona Mosher MD Primary Care Physician [phone] Encounter [facility] [place] Date(s): 12/02/21 - 01/01/[address] [address] Attending Physician: Kelsey Cartagena Admitting Physician: AdmtrKelsey Referring Physician: Admtr, Ar8 Allergies, Adverse Reactions, [...] 5 Refills, Maintenance, 08/06/21 8:30:00 EDT, Tablet, [facility], Partial fill upon patient request if the prescription is for aschedule II opioid drug., 150, cm, 07/23/21 22:44:0... Start Date: 08/06/21 Stop Date: 02/02/22 Status: Ordered lidocaine 5% topical ointment 1 application, Topically, 3 times a day, # 50 Gm, 2 Refills, Maintenance, 09/19/21 14:33:00 EST, Ointment, [facility], Partial fill upon patient request if the prescription is for a schedule II opioid drug., 1 application Topically 3 times... Start Date: 09/19/21 Status: Ordered methadone 5 mg oral tablet See Instructions, 1 tab PO in AM 2 tabs in Afternoon and 1 tab @ HS for pain, # 112 tablet, 0 Refills, Maintenance, 12/30/21 8:36:00 EDT, Tablet, [facility], Partial fill upon patient request., 12/31/21, 150, cm, 11/25/21 9:27:00 EST, Heigh... Start Date: 12/30/21 Status: Ordered naloxone 4 mg/0.1 mL nasal spray = 4 mg, Naris, Left, Once, may repeat every 2 to 3 minutes until patient responds, # 2 each, 0 Refills, Soft Stop, 12/13/19 13:32:00 EST, [facility], 166, cm, 12/13/19 12:42:00 [...] capsule, 1 Refills, Maintenance, 12/03/21 9:05:00 EST, [facility], 150, cm, 11/25/21 9:27:00 [...] Active Patent foramen ovale(Confirmed) 06/06/08 Active *BHN/CCA/CP-Xavier Guido-[phone]/Health alf, active care coordination(Confirmed) Active Neuropathic pain [...] 72% ( crippled ) on 11/25/21; updated [place] Back Pain Scale: 87 on 11/25/21 3updated Oswestry Disability Index: 56% ( severe disability ) on 10/26/18; updated [place] Back Pain Scale: 77 on 10/27/18 4initial Oswestry Disability Index: 76% ( crippled ) on 07/09/17; initial [place] Back Pain Scale: 84 on 07/09/17; initial [place]: 14 on 07/09/17 5SOAPP-R: 21 on 07/09/17 6cardiology 2016 cited known PVCs Social History Social History Type Response Tobacco Use: 4 or less cigar ettes(less than 1/4 pack)/day in last 30 days. Sex Female Medical Equipment Implanted Date:01/18/21Target Site:Vagina Description Quantity MRI Company Model SLING SUSPEND FASCIA ERIN 2X 7 - COLO (51-6090) 1 [employer] Jeff Unknown JESSEE:No Information Assigning Authority: FDA
--- OUTSIDE RECORDS SUMMARY | 2023-06-22 17:20 | XMS_ITS | Continuity of Care Document ---
Author Name Unknown Organization [facility] Address [address] [place] [address]- Care Team Providers Care Keyboard Specialist Name Role Phone Malik FRANCIS, Shanon Arshad Primary Care Physician [place] [facility] [place] 01/28/21 - 02/27/21 [facility] [address] [place] [address] Allergies, Adverse Reactions, Alerts Substance [...] He... Start Date: 12/13/19 Status: Ordered ergocalciferol 74304 iu oral capsule 50,000 International_Units, 1, capsule, By Mouth, Every week, for 30 days, # 5 capsule, Refills 1, Tot. Refills 1, Acute 04/20/21 12:17:00 EDT, 02/19/21 12:17:00 EDT, Route to Pharmacy Electronically, [facility], Partial fill upon patient r... [...] 10/29/20 15:45:00 EST, Route to Pharmacy Electronically, [facility], replaces prio... Start Date: 10/29/20 Stop Date: 03/28/21 Status: Ordered methadone 5 mg oral tablet See Instructions, 1 tab PO in AM 2 tabs in Afternoon and 1 tab @ HS for pain, # 112 tablet, 0 Refills, Maintenance, 02/26/21 10:37:00 EDT, Tablet, [facility], Partial fill upon patient request., 02/28/21, 149.9, cm, 02/25/21 9:46:00 EDT, He... Start Date: 02/26/21 Status: Ordered naloxone 4 mg/0.1 mL nasal spray = 4 mg, Naris, Left, Once, may repeat every 2 to 3 minutes until patient responds, # 2 each, 0 Refills, Soft Stop, 12/13/19 13:32:00 EST, [facility], 166, cm, 12/13/19 [...] capsule, 1 Refills,Maintenance, 02/20/21 15:50:00 EDT, Capsule, [facility], Partial fill upon [...] ovale(Confirmed) 06/06/08 Active *BHN/CCA/CP-Xavier [facility]-[phone]/Health fdc, active care coordination(Confirmed) Active Neuropathic pain [...] Back Pain Scale: 84 on 07/09/17; initial [place]: 14 on 07/09/17 4SOAPP-R: 21 on 07/09/17 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 Sex Female Medical Equipment Implanted Date:01/18/21Target Site:Vagina Description Quantity MRI Company Model SLING SUSPEND FASCIA ERIN 2X 7 - COLO (04-7601) 1 [employer]oplast Jeff Unknown JESSEE:No Information Assigning Authority: FDA
--- OUTSIDE RECORDS SUMMARY | 2023-06-22 17:20 | XMS_ITS | Continuity of Care Document ---
Author Name Unknown Organization [facility] Address [address], [address] Floor, [address] [place] [address]- Care Team Providers Care Travel Services Professional Name Role Phone Malik FRANCIS, Shanon Arshad Primary Care Physician Encounter [facility] Date(s): 01/16/20 - 01/23/20 [facility] [address], [address], [address] [place] [address]- [facility] Attending Physician: Jyothi FRANCIS, Inderjit Allen Allergies, Adverse Reactions, Alerts Substance Reaction Severity [...] Mouth, Every 8 hours, intractable pain, # 42 tablet, 0 Refills, Maintenance, 01/12/20 14:19:00 EDT, Tablet, [facility], Partial fill upon patient request, 166, cm, 12/13/19 12:42:00 EST, Height, 82.6, kg, 07/05/18 18:39:... Start Date: 01/12/20 Stop Date: 01/26/20 Status: Ordered naloxone 4 mg/0.1 mL nasal spray = 4 mg, Naris, Left, Once, may repeat every 2 to 3 minutes until patient responds, # 2 each, 0 Refills, Soft Stop, 12/13/19 13:32:00 EST, [facility], 166, cm, 12/13/19 [...] ovale(Confirmed) 06/06/08 Active *BHN/CCA/CP-Xavier [facility]-[phone]/Health intermediate, active care coordination(Confirmed) Active Neuropathic pain [...] Back Pain Scale: 84 on 07/09/17; initial [place]: 14 on 07/09/17 4SOAPP-R: 21 on 07/09/17 Social History Social History Type Response Tobacco Use: 4 or less cigar ettes(less than 1/4 pack)/day in last 30 days. Sex Female
--- OUTSIDE RECORDS SUMMARY | 2023-06-22 17:20 | XMS_ITS | Continuity of Care Document ---
Author Name Unknown Organization [facility] Address [address] [place] [address]- Care Team Providers Care System Configuration Specialist Name Role Phone Petrona Mosher MD Primary Care Physician [phone] Encounter [facility] Date(s): 09/18/21 - 10/18/21 [facility] [address] [place], [place] [address] Allergies, Adverse Reactions, Alerts Substance [...] 5 Refills, Maintenance, 08/06/21 8:30:00 EDT, Tablet, [facility], Partial fill upon patient request if the prescription is for aschedule II opioid drug., 150, cm, 07/23/21 22:44:0... Start Date: 08/06/21 Stop Date: 02/02/22 Status: Ordered lidocaine 5% topical ointment 1 application, Topically, 3 times a day, # 50 Gm, 2 Refills, Maintenance, 09/19/21 14:33:00 EST, Ointment, [facility], Partial fill upon patient request if the prescription is for a schedule II opioid drug., 1 application Topically 3 times... Start Date: 09/19/21 Status: Ordered methadone 5 mg oral tablet See Instructions, 1 tab PO in AM 2 tabs in Afternoon and 1 tab @ HS for pain, # 112 tablet, 0 Refills, Maintenance, 10/01/21 8:21:00 EST, Tablet, [facility], Partial fill upon patient request., 10/02/21, 150, cm, 09/19/21 14:05:00 EST, [facility]... Start Date: 10/01/21 Status: Ordered naloxone 4 mg/0.1 mL nasal spray = 4 mg, Naris, Left, Once, may repeat every 2 to 3 minutes until patient responds, # 2 each, 0 Refills, Soft Stop, 12/13/19 13:32:00 EST, [facility], 166, cm, 12/13/19 [...] Refills, Maintenance, 04/08/21 11:01:00 EDT, [facility], 149.9, cm, 03/27/21 13:01:00 EDT, Height, 68.3, [...] Active Patent foramen ovale(Confirmed) 06/06/08 Active *BHN/CCA/CP-Xavier [facility]-[phone]/Health fpc, active care coordination(Confirmed) Active Neuropathic pain [...] Back Pain Scale: 84 on 07/09/17; initial [place]: 14 on 07/09/17 4SOAPP-R: 21 on 07/09/17 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 Sex Female Medical Equipment Implanted Date:01/18/21Target Site:Vagina Description Quantity MRI Company Model SLING SUSPEND FASCIA ERIN 2X 7 - COLO (28-6831) 1 [employer] Jeff Unknown JESSEE:No Information Assigning Authority: FDA
--- OUTSIDE RECORDS SUMMARY | 2023-06-22 17:20 | XMS_ITS | Continuity of Care Document ---
Author Name Unknown Organization [facility] ter Address [address] [place] [address]- Care Team Providers Care Buffing And Polishing Wheel Repairer Name Role Phone Malik FRANCIS, Shanon Arshad Primary Care Physician Encounter [facility] [place](s): 01/18/21 - 01/18/[address] [address] Encounter Diagnosis Urgency incontinence(Final) - 01/18/21 Uninhibited neurogenic bladder(Final) - 01/18/21 Detrusor instability(Final) - 01/18/21 Discharge Disposition: A-D/C Home Attending Physician: Charles [...] 10/29/20 15:45:00 EST, Route to Pharmacy Electronically, [facility], replaces prio... Start Date: 10/29/20 Stop Date: 03/28/21 Status: Ordered methadone 5 mg oral tablet See Instructions, 1 tab PO in AM 2 tabs in Afternoon and 1 tab @ HS for pain, # 112 tablet, 0 Refills, Maintenance, 12/28/20 9:36:00 EST, Tablet, [facility], Partial fill upon patient request., [...] Active Patent foramen ovale(Confirmed) 06/06/08 Active *BHN/CCA/CP-Xavier Banuelos-[phone]/Health mcfp, active care coordination(Confirmed) Active Neuropathic pain [...] Back Pain Scale: 84 on 07/09/17; initial [place]: 14 on 07/09/17 4SOAPP-R: 21 on 07/09/17 Vital Signs Most recent to oldest [Reference Range]: 1 2 3 Height 149.9 cm (01/18/21 8:52 AM) 149.9 cm (01/11/21 2:52 PM) Weight 68.3 kg (01/18/21 8:52 AM) 62.27 kg (01/11/21 2:52 PM) Oxygen Saturation [94-100 %] 98 % (01/18/21 12:30 PM) 98 % (01/18/21 12:15 PM) 100 % (01/18/21 12:00 PM) Pulse Rate [55-90 bpm] 79 bpm (01/18/21 8:52 AM) Body Mass Index [18.5-24.99] 30.4 *>HHI* (01/18/21 8:52 AM) 27.71 *H* (01/11/21 2:52 PM) Blood Pressure [90-138/55-84 mm Hg] 142/91mm Hg *H* (01/18/21 12:30 PM) 142/78mm Hg *H* (01/18/21 12:15 PM) 120/86mm Hg (01/18/21 12:00 PM) Respiratory Rate [16-30 br/min] 14 br/min *L* (01/18/21 12:30 PM) 13 br/min *L* (01/18/21 12:15 PM) 24 br/min (01/18/21 12:00 PM) Temperature [96.8-100.4 DegF] 98.2 DegF (01/18/21 12:30 PM) 99.5 DegF (01/18/21 11:30 AM) 98.1 DegF (01/18/21 8:52 AM) Liters per Minute 6 L/min (01/18/21 12:00 PM) 6 L/min (01/18/21 11:45 AM) 6 L/min (01/18/21 11:30 AM) Mode of Delivery (Oxygen) Room air (01/18/21 12:30 PM) Room air (01/18/21 12:15 PM) Simple face mask (01/18/21 12:00 PM) Blood pressure sites Arm, right (01/18/21 8:52 AM) Temperature Route Temporal (01/18/21 12:30 PM) Temporal (01/18/21 11:30 AM) Temporal (01/18/21 8:52 AM) Dry Weight 68.3 kg (01/18/21 8:52 AM) 62.27 kg (01/11/21 2:52 PM) Weight Obtained Via Standing scale (01/18/21 8:52 AM) Patient/family stated (01/11/21 2:52 PM) Dry Weight Obtained Via Standing scale (01/18/21 8:52 AM) Patient/family stated (01/11/21 2:52 PM) Social History Social History Type Response Tobacco Use: 4 or less cigar ettes(less than 1/4 pack)/day in last 30 days. Sex Female Medical Equipment Implanted Date:01/18/21Target Site:Vagina Description Quantity MRI Company Model SLING SUSPEND FASCIA ERIN 2X 7 - COLO (93-4829) 1 [employer]oplast Jeff Unknown JESSEE:No Information Assigning Authority: FDA
--- OUTSIDE RECORDS SUMMARY | 2023-06-22 17:21 | XMS_ITS | Continuity of Care Document ---
Author Name Unknown Organization [facility] Address Unknown Care Team Providers Care Plant Maintenance Supervisor Name Role Phone Nomi FRANCIS, Petrona Primary Care Physician [phone] Encounter [facility] [place] Date(s): 08/06/21 - 12/20/21 [facility] Attending Physician: Trevor Plascencia MD Referring Physician: Jyothi FRANCIS, Inderjit Allen Allergies, Adverse [...] 5 Refills, Maintenance, 08/06/21 8:30:00 EDT, Tablet, [facility], Partial fill upon patient request if the prescription is for aschedule II opioid drug., 150, cm, 07/23/21 22:44:0... Start Date: 08/06/21 Stop Date: 02/02/22 Status: Ordered lidocaine 5% topical ointment 1 application, Topically, 3 times a day, # 50 Gm, 2 Refills, Maintenance, 09/19/21 14:33:00 EST, Ointment, [facility], Partial [...] 0 Refills, Maintenance, 11/29/21 10:02:00 EST, Tablet, [facility], [...] capsule, 1 Refills, Maintenance, 12/03/21 9:05:00 EST, [facility], 150, cm, 11/25/21 9:27:00 [...] ent or counseling(Confirmed) 5 Active H. pylori(Confirmed) 9/18/08 Active Irritable bowel syndrome (IBS)(Confirmed) Active Low back pain(Confirmed) Active Anxiety and depression(Confirmed) Active Depression, moderately sever e recurrent major(Confirmed) Active Nicotine dependence, uncomplicated(Confirmed) Active Obese class I(Confirmed) Active Obstructive sleep apnea, mild(Confirmed) 2015 Active Lower extremity pain(Confirmed) Active Spontanous paralysis of both legs(Confirmed) Active Patent foramen ovale(Confirmed) 06/06/08 Active *BHN/CCA/CP-Xavier Guido-[phone]/Health assisted, active care coordination(Confirmed) Active Neuropathic pain [...] Back Pain Scale: 84 on 07/09/17; initial [place]: 14 on 07/09/17 5SOAPP-R: 21 on 07/09/17 6cardiology 2016 cited known PVCs Social History Social History Type Response Tobacco Use: 4 or less cigar ettes(less than 1/4 pack)/day in last 30 days. Sex Female Medical Equipment Implanted Date:01/18/21Target Site:Vagina Description Quantity MRI Company Model SLING SUSPEND FASCIA ERIN 2X 7 - COLO (40-2245) 1 [employer]oplast Jeff Unknown JESSEE:No Information Assigning Authority: FDA
--- OUTSIDE RECORDS SUMMARY | 2023-06-22 17:21 | XMS_ITS | Continuity of Care Document ---
Author Name Unknown Organization [facility] Address [address] [place] [address]- Care Team Providers Care Holistic Health Practitioner Name Role Phone Petrona Mosher MD Primary Care Physician [place] [facility] [place]s): 11/28/21 - 12/28/21 [facility] [address] [place] [address]- Allergies, Adverse Reactions, Alerts Substance Reaction Severity [...] Maintenance,controlled substance agreement signed 12.13.2019; preferred pharm: [facility], 12/13/19 13:32:00 EST, Compound, 166, cm, [...] 5 Refills, Maintenance, 08/06/21 8:30:00 EDT, Tablet, [facility], Partial fill upon patient request if the prescription is for aschedule II opioid drug., 150, cm, 07/23/21 22:44:0... Start Date: 08/06/21 Stop Date: 02/02/22 Status: Ordered lidocaine 5% topical ointment 1 application, Topically, 3 times a day, # 50 Gm, 2 Refills, Maintenance, 09/19/21 14:33:00 EST, Ointment, [facility], Partial fill upon patient request if the prescription is for a schedule II opioid drug., 1 application Topically 3 times... Start Date: 09/19/21 Status: Ordered methadone 5 mg oral tablet See Instructions, 1 tab PO in AM 2 tabs in Afternoon and 1 tab @ HS for pain, # 112 tablet, 0 Refills, Maintenance, 11/29/21 10:02:00 EST, Tablet, [facility], Partial fill upon patient request., 12/02/21, 150, cm, 11/25/21 9:27:00 EST, Heig... Start Date: 11/29/21 Status: Ordered naloxone 4 mg/0.1 mL nasal spray = 4 mg, Naris, Left, Once, may repeat every 2 to 3 minutes until patient responds, # 2 each, 0 Refills, Soft Stop, 12/13/19 13:32:00 EST, [facility], 166, cm, 12/13/19 [...] capsule, 1 Refills, Maintenance, 12/03/21 9:05:00 EST, [facility], 150, cm, 11/25/21 [...] Active Patent foramen ovale(Confirmed) 06/06/08 Active *BHN/CCA/CP-Xavier [facility]-[phone]/Health skilled nursing, active care coordination(Confirmed) Active Neuropathic pain of [...] Back Pain Scale: 84 on 07/09/17; initial [place]: 14 on 07/09/17 5SOAPP-R: 21 on 07/09/17 6cardiology 2016 cited known PVCs Social History Social History Type Response Tobacco Use: 4 or less cigar ettes(less than 1/4 pack)/day in last 30 days. Sex Female Medical Equipment Implanted Date:01/18/21Target Site:Vagina Description Quantity MRI Company Model SLING SUSPEND FASCIA ERIN 2X 7 - COLO (08-2005) 1 [employer]oplast Jeff Unknown JESSEE:No Information Assigning Authority: FDA
--- OUTSIDE RECORDS SUMMARY | 2023-06-22 17:21 | XMS_ITS | Continuity of Care Document ---
Author Name Unknown Organization [facility] Address [address] [place] [address]- Care Team Providers Care Circular Saw Filer Name Role Phone Petrona Mosher MD Primary Care Physician [phone] [facility] [place] Date(s): 11/26/21 - 01/01/[address] [id number] Attending Physician: Isaura Mosher MD Admitting Physician: [...] 5 Refills, Maintenance, 08/06/21 8:30:00 EDT, Tablet, [facility], Partial fill upon patient request if the prescription is for aschedule II opioid drug., 150, cm, 07/23/21 22:44:0... Start Date: 08/06/21 Stop Date: 02/02/22 Status: Ordered lidocaine 5% topical ointment 1 application, Topically, 3 times a day, # 50 Gm, 2 Refills, Maintenance, 09/19/21 14:33:00 EST, Ointment, [facility], Partial fill upon patient request if the prescription is for a schedule II opioid drug., 1 application Topically 3 times... Start Date: 09/19/21 Status: Ordered methadone 5 mg oral tablet See Instructions, 1 tab PO in AM 2 tabs in Afternoon and 1 tab @ HS for pain, # 112 tablet, 0 Refills, Maintenance, 12/30/21 8:36:00 EDT, Tablet, [facility], Partial fill upon patient request., 12/31/21, 150, cm, 11/25/21 9:27:00 EST, Heigh... Start Date: 12/30/21 Status: Ordered naloxone 4 mg/0.1 mL nasal spray = 4 mg, Naris, Left, Once, may repeat every 2 to 3 minutes until patient responds, # 2 each, 0 Refills, Soft Stop, 12/13/19 13:32:00 EST, [facility], 166, cm, 12/13/19 12:42:00 [...] capsule, 1 Refills, Maintenance, 12/03/21 9:05:00 EST, [facility], 150, cm, 11/25/21 9:27:00 [...] Active Patent foramen ovale(Confirmed) 06/06/08 Active *BHN/CCA/CP-Xavier Guido-[phone]/Health assisted, active care coordination(Confirmed) Active Neuropathic pain [...] Back Pain Scale: 84 on 07/09/17; initial [place]: 14 on 07/09/17 5SOAPP-R: 21 on 07/09/17 6cardiology 2016 cited known PVCs Social History Social History Type Response Tobacco Use: 4 or less cigar ettes(less than 1/4 pack)/day in last 30 days. Sex Female Medical Equipment Implanted Date:01/18/21Target Site:Vagina Description Quantity MRI Company Model SLING SUSPEND FASCIA ERIN 2X 7 - COLO (01-9487) 1 [employer]oplast Jeff Unknown JESSEE:No Information Assigning Authority: FDA
--- OUTSIDE RECORDS SUMMARY | 2023-06-22 17:21 | XMS_ITS | Continuity of Care Document ---
Author Name Unknown Organization [facility] Address [address] [place] [address]- Care Team Providers Care Mandarin Chinese Teacher Name Role Phone Malik FRANCIS, Shanon Arshad Primary Care Physician Encounter [facility] Date(s): 10/24/20 - 11/24/20 [facility] [address] [place] [id number] Attending Physician: Not on Staff, Attending MD [...] pharm: [facility], 12/13/19 13:32:00 EST, Leopoldo, 166, cm, 12/13/19 12:42:00 EST, He... Start [...] 10/24/20 14:00:00 EST, Route to Pharmacy Electronically, [facility], Partial fill upon patient request if the prescription is for a schedule II opioid... Start Date: 10/24/20 Status: Ordered gabapentin 300 mg oral capsule 900 mg, 3, capsule, By Mouth, 3 times a day, follow previously given instructions for increasing dose, # 270 capsule, Refills 4, Tot. Refills 4, Maintenance, 10/29/20 15:45:00 EST, Route to Pharmacy Electronically, [facility], replaces prio... Start Date: 10/29/20 Stop Date: 03/28/21 Status: Ordered methadone 5 mg oral tablet See Instructions, 1 tab PO in AM 2 tabs in Afternoon and 1 tab @ HS for pain, # 112 tablet, 0 Refills, Maintenance, 10/29/20 13:13:00 EST, Tablet, [facility], [...] Active Patent foramen ovale(Confirmed) 06/06/08 Active *BHN/CCA/CP-Xavier Trivedi-[phone]/Health senior care, active care coordination(Confirmed) Active Neuropathic [...] Back Pain Scale: 84 on 07/09/17; initial [place]: 14 on 07/09/17 4SOAPP-R: 21 on 07/09/17 Social History Social History Type Response Tobacco Use: 4 or less cigar ettes(less than 1/4 pack)/day in last 30 days. Sex Female
--- OUTSIDE RECORDS SUMMARY | 2023-06-22 17:21 | XMS_ITS | Continuity of Care Document ---
Author Name Unknown Organization [facility] Address [address] [place] [address]- Care Team Providers Care Final Installer Inspector Name Role Phone Malik FRANCIS, Shanon Arshad Primary Care Physician [place] [facility] [place] - 12/30/20 [facility] [address] [place] [id number] Allergies, Adverse Reactions, Alerts Substance [...] 10/24/20 14:00:00 EST, Route to Pharmacy Electronically, [facility], Partial fill upon patient request if the prescription is for a schedule II opioid... Start Date: 10/24/20 Status: Ordered gabapentin 300 mg oral capsule 900 mg, 3, capsule, By Mouth, 3 times a day, follow previously given instructions for increasing dose, # 270 capsule, Refills 4, Tot. Refills 4, Maintenance, 10/29/20 15:45:00 EST, Route to Pharmacy Electronically, [facility], replaces prio... Start Date: 10/29/20 Stop Date: 03/28/21 Status: Ordered methadone 5 mg oral tablet See Instructions, 1 tab PO in AM 2 tabs in Afternoon and 1 tab @ HS for pain, # 112 tablet, 0 Refills, Maintenance, 12/28/20 9:36:00 EST, Tablet, [facility], Partial fill upon patient request., 12/31/20, 149.86, cm, 11/09/20 12:49:00 EST, H... Start Date: 12/28/20 Status: Ordered naloxone 4 mg/0.1 mL nasal spray = 4 mg, Naris, Left, Once, may repeat every 2 to 3 minutes until patient responds, # 2 each, 0 Refills, Soft Stop, 12/13/19 13:32:00 EST, [facility], 166, cm, 12/13/19 12:42:00 EST, [...] Active Patent foramen ovale(Confirmed) 06/06/08 Active *BHN/CCA/CP-Xavier Trivedi-[phone]/Health intermediate, active care coordination(Confirmed) Active Neuropathic pain [...] Back Pain Scale: 84 on 07/09/17; initial [place]: 14 on 07/09/17 4SOAPP-R: 21 on 07/09/17 Social History Social History Type Response Tobacco Use: 4 or less cigar ettes(less than 1/4 pack)/day in last 30 days. Sex Female
--- OUTSIDE RECORDS SUMMARY | 2023-06-22 17:21 | XMS_ITS | Continuity of Care Document ---
Author Name Unknown Organization [facility] Address [address] [place] [address]- Care Team Providers Care Reject Opener And Filler Name Role Phone Malik FRANCIS, Shanon Arshad Primary Care Physician Encounter [facility] Date(s): 02/25/21 - 03/27/21 [facility] [address] [place] [id number] Allergies, Adverse Reactions, Alerts Substance Reaction Severity [...] He... Start Date: 12/13/19 Status: Ordered ergocalciferol 68277 iu oral capsule 50,000 International_Units, 1, capsule, By Mouth, Every week, for 30 days, # 5 capsule, Refills 1, Tot. Refills 1, Acute 04/20/21 12:17:00 EDT, 02/19/21 12:17:00 EDT, Route to Pharmacy Electronically, [facility], Partial fill upon [...] 10/29/20 15:45:00 EST, Route to Pharmacy Electronically, [facility], replaces prio... Start Date: 10/29/20 Stop Date: 03/28/21 Status: Ordered methadone 5 mg oral tablet See Instructions, 1 tab PO in AM 2 tabs in Afternoon and 1 tab @ HS for pain, # 112 tablet, 0 Refills, Maintenance, 02/26/21 10:37:00 EDT, Tablet, [facility], Partial fill upon patient request., 02/28/21, 149.9, cm, 02/25/21 9:46:00 EDT, He... Start Date: 02/26/21 Status: Ordered naloxone 4 mg/0.1 mL nasal spray = 4 mg, Naris, Left, Once, may repeat every 2 to 3 minutes until patient responds, # 2 each, 0 Refills, Soft Stop, 12/13/19 13:32:00 EST, [facility], 166, cm, 12/13/19 [...] 04/21/21 15:50:00 EDT, 02/20/21 15:50:00 EDT, Capsule, [facility], Partial fill upon patient request if the prescript... Start Date: 02/20/21 Stop Date: 04/21/21 Status: Ordered tiZANidine 4 mg oral capsule 1 capsule = 4 mg, By Mouth, 3 times a day, # 90 capsule, 5 Refills, Maintenance, 03/04/21 14:18:00 EDT, Capsule, [facility], Partial fill upon patient [...] Active Patent foramen ovale(Confirmed) 06/06/08 Active *BHN/CCA/CP-Xavier [facility]-[phone]/Health usp, active care coordination(Confirmed) Active Neuropathic pain [...] Back Pain Scale: 84 on 07/09/17; initial [place]: 14 on 07/09/17 4SOAPP-R: 21 on 07/09/17 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 Sex Female Medical Equipment Implanted Date:01/18/21Target Site:Vagina Description Quantity MRI Company Model SLING SUSPEND FASCIA ERIN 2X 7 - COLO (90-7349) 1 [employer] Jeff Unknown JESSEE:No Information Assigning Authority: FDA
--- OUTSIDE RECORDS SUMMARY | 2023-06-22 17:21 | XMS_ITS | Continuity of Care Document ---
Author Name Unknown Organization [facility] Address [address] [place] [address]- Care Team Providers Care Germ Drier Name Role Phone Malik FRANCIS, Shanon Arshad Primary Care Physician ( [phone] Encounter [facility] Date(s): 10/07/19 - 10/17/19 [facility] [address] [place] [address]- [facility] Attending Physician: Kelsey Cartagena Admitting Physician: AdmKesley roland Referring Physician: AdmtrKelsey Allergies, Adverse Reactions, [...] VIS given, 08/2008 8Admin Note: VIS Medications Cannabis (Schedule I Substance) has state certificate, 0 Refills, Maintenance, 10/26/18 12:48:34 EST Start Date: 10/26/18 Status: Ordered dronabinol 2.5 mg oral capsule See Instructions, 1 cap po in am, 1 cap po in afternoon, 2 caps po at HS, # 120 capsule, 0 Refills,Maintenance, 09/21/19 9:50:52 EST Start Date: 09/21/19 Status: Ordered Flovent HFA 110 mcg/inh inhalation aerosol 2 puffs, Inhalation, 2 times a day, # 12 Gm, 5 Refills, Maintenance, 11/08/15 9:56:17, Aerosol, 2 puffs Inhalation 2 times a day Start Date: 11/08/15 Status: Ordered ProAir HFA 90 mcg/inh inhalation aerosol with adapter 2, puffs, Inhalation, Every 4 hours, PRN, # 8.5 Gm, Refills 0, Maintenance, 05/30/16 15:04:51, Aerosol Start Date: 05/30/16 Status: Ordered Sacral Stimulator Sacral Stimulator, Refills 0, Maintenance, [employer], 07/09/17 9:32:51, Compound Start Date: 07/09/17 Status: Ordered zonisamide 50 mg oral capsule 2 capsule = 100 mg, By Mouth, 3 times a day, # 180 capsule, 1 Refills, Maintenance, 03/25/19 9:55:50 EDT, Capsule Start Date: 03/25/19 Status: Ordered Problem List Condition Effective Dates [...] Active Patent foramen ovale(Confirmed) 06/06/08 Active *BHN/CCA/CP-Alexa Gnagia-[phone](Confirmed) Active Neuropathic pain of lower extremity(Confirmed) Active [...] Back Pain Scale: 84 on 07/09/17; initial [place]: 14 on 07/09/17 4SOAPP-R: 21 on 07/09/17 Social History Social History Type Response Tobacco Use: 4 or less cigar ettes(less than 1/4 pack)/day in last 30 days. Sex Female
--- OUTSIDE RECORDS SUMMARY | 2023-06-22 17:21 | XMS_ITS | Continuity of Care Document ---
Author Name Unknown Organization [facility] Address [address] [place] [address]- Care Team Providers Care Court Commissioner Name Role Phone Petrona Mosher MD Primary Care Physician [place] [facility] [place]10[place] - 07/10/22 [facility] [address] [place] [id number] Allergies, Adverse Reactions, Alerts Substance Reaction [...] 3 Refills, Maintenance, 07/07/22 14:53:00 EDT, [facility], 149.86, cm, 06/24/22 13:07:00 EDT, Height, 69.9, [...] capsule, 1 Refills, Maintenance, 12/03/21 9:05:00 EST, [facility], 150, cm, 11/25/21 9:27:00 EST, [...] Active Patent foramen ovale(Confirmed) 06/06/08 Active *BHN/CCA/CP-Xavier Trivedi-[phone]/Health skilled nursing, active care coordination(Confirmed) Active Neuropathic [...] 72% ( crippled ) on 11/25/21; updated [place] Back Pain Scale: 87 on 11/25/21 3updated Oswestry Disability Index: 56% ( severe disability ) on 10/26/18; updated [place] Back Pain Scale: 77 on 10/27/18 4initial Oswestry Disability Index: 76% ( crippled ) on 07/09/17; initial [place] Back Pain Scale: 84 on 07/09/17; initial [place]: 14 on 07/09/17 5SOAPP-R: 21 on 07/09/17 [...] MRI Safety Implantable Status Assigning Authority Unknown [id number] Unknown 08/18/24 Unknown Unknown Active Unknown Care Team Personnel Name: Petrona Mosher MD Address: [address] [place] [address]
--- OUTSIDE RECORDS SUMMARY | 2023-06-22 17:21 | XMS_ITS | Continuity of Care Document ---
Author Name Unknown Organization [facility] Address Unknown Care Team Providers Care Gift Officer Name Role Phone Petrona Mosher MD Primary Care Physician [phone] [place] [facility] [place] 09/17/21 - 10/17/21 [facility] Allergies, Adverse Reactions, Alerts Substance Reaction Severity [...] 5 Refills, Maintenance, 08/06/21 8:30:00 EDT, Tablet, [facility], Partial fill upon patient request if the prescription is for aschedule II opioid drug., 150, cm, 07/23/21 22:44:0... Start Date: 08/06/21 Stop Date: 02/02/22 Status: Ordered lidocaine 5% topical ointment 1 application, Topically, 3 times a day, # 50 Gm, 2 Refills, Maintenance, 09/19/21 14:33:00 EST, Ointment, [facility], Partial fill upon patient request if the prescription is for a schedule II opioid drug., 1 application Topically 3 times... Start Date: 09/19/21 Status: Ordered methadone 5 mg oral tablet See Instructions, 1 tab PO in AM 2 tabs in Afternoon and 1 tab @ HS for pain, # 112 tablet, 0 Refills, Maintenance, 10/01/21 8:21:00 EST, Tablet, [facility], Partial fill upon patient request., 10/02/21, 150, cm, 09/19/21 14:05:00 EST, Heig... Start Date: 10/01/21 Status: Ordered naloxone 4 mg/0.1 mL nasal spray = 4 mg, Naris, Left, Once, may repeat every 2 to 3 minutes until patient responds, # 2 each, 0 Refills, Soft Stop, 12/13/19 13:32:00 EST, [facility], 166, cm, 12/13/19 12:42:00 [...] Refills, Maintenance, 04/08/21 11:01:00 EDT, [facility], 149.9, cm, 03/27/21 13:01:00 EDT, Height, 68.3, [...] Active Patent foramen ovale(Confirmed) 06/06/08 Active *BHN/CCA/CP-Xavier Guido-[phone]/Health correction, active care coordination(Confirmed) Active Neuropathic pain [...] Back Pain Scale: 84 on 07/09/17; initial [place]: 14 on 07/09/17 4SOAPP-R: 21 on 07/09/17 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 Sex Female Medical Equipment Implanted Date:01/18/21Target Site:Vagina Description Quantity MRI Company Model SLING SUSPEND FASCIA ERIN 2X 7 - COLO (76-3049) 1 [employer] Jeff Unknown JESSEE:No Information Assigning Authority: FDA
--- OUTSIDE RECORDS SUMMARY | 2023-06-22 17:21 | XMS_ITS | Continuity of Care Document ---
Author Name Unknown Organization [facility] Address [address] [place] [address]- Care Team Providers Care Bacteriologist Dairy Name Role Phone Petrona Mosher MD Primary Care Physician [facility]21 - 06/26/21 [facility] [address] [place] [address]- Allergies, Adverse Reactions, Alerts Substance Reaction Severity [...] 04/12/21 15:07:00 EDT, Route to Pharmacy Electronically, [facility], 149.9, cm... Start Date: 04/12/21 Status: Ordered methadone 5 mg oral tablet See Instructions, 1 tab PO in AM 2 tabs in Afternoon and 1 tab @ HS for pain, # 112 tablet, 0 Refills, Maintenance, 05/29/21 11:31:00 EDT, Tablet, [facility], Partial fill upon patient request., 05/29/21, 150, cm, 04/15/21 19:35:00 EDT, Hei... Start Date: 05/29/21 Status: Ordered naloxone 4 mg/0.1 mL nasal spray = 4 mg, Naris, Left, Once, may repeat every 2 to 3 minutes until patient responds, # 2 each, 0 Refills, Soft Stop, 12/13/19 13:32:00 EST, [facility], 166, cm, 12/13/19 12:42:00 [...] Refills, Maintenance, 04/08/21 11:01:00 EDT, [facility], 149.9, cm, 03/27/21 13:01:00 EDT, Height, 68.3, [...] Active Patent foramen ovale(Confirmed) 06/06/08 Active *BHN/CCA/CP-Xavier Trivedi-[phone]/Health long-term, active care coordination(Confirmed) Active Neuropathic pain of [...] Back Pain Scale: 84 on 07/09/17; initial [place]: 14 on 07/09/17 4SOAPP-R: 21 on 07/09/17 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 Sex Female Medical Equipment Implanted Date:01/18/21Target Site:Vagina Description Quantity MRI Company Model SLING SUSPEND FASCIA ERIN 2X 7 - COLO (12-7727) 1 Coloplast Jeff Unknown JESSEE:No Information Assigning Authority: FDA
--- OUTSIDE RECORDS SUMMARY | 2023-06-22 17:21 | XMS_ITS | Continuity of Care Document ---
Author Name Unknown Organization [facility] Address [address] [facility], 3r d Floor, [address] [place] [address]- Care Team Providers Care Fund Manager Name Role Phone Malik FRANCIS, Shanon Arshad Primary Care Physician [facility] Date[facility]s): 01/24/21 - 02/23/21 [facility] [address], 3[address] Floor, [address] [place] [id number] Attending Physician: Kelsey Cartagena Admitting Physician: [...] He... Start Date: 12/13/19 Status: Ordered ergocalciferol 52067 iu oral capsule 50,000 International_Units, 1, capsule, By Mouth, Every week, for 30 days, # 5 capsule, Refills 1, Tot. Refills 1, Acute 04/20/21 12:17:00 EDT, 02/19/21 12:17:00 EDT, Route to Pharmacy Electronically, [facility], Partial fill upon [...] 10/29/20 15:45:00 EST, Route to Pharmacy Electronically, [facility], replaces prio... Start Date: 10/29/20 Stop Date: 03/28/21 Status: Ordered methadone 5 mg oral tablet See Instructions, 1 tab PO in AM 2 tabs in Afternoon and 1 tab @ HS for pain, # 112 tablet, 0 Refills, Maintenance, 01/29/21 16:24:00 EDT, Tablet, [facility], Partial fill upon patient request., 149.9, cm, 01/25/21 8:53:00 EDT, Height, 68.3... Start Date: 01/29/21 Status: Ordered naloxone 4 mg/0.1 mL nasal spray = 4 mg, Naris, Left, Once, may repeat every 2 to 3 minutes until patient responds, # 2 each, 0 Refills, Soft Stop, 12/13/19 13:32:00 EST, [facility], 166, cm, 12/13/19 [...] capsule, 1 Refills,Maintenance, 02/20/21 15:50:00 EDT, Capsule, [facility], [...] 06/06/08 Active *BHN/CCA/CP-Xavier [facility]-[phone]/Health jail, active care coordination(Confirmed) Active Neuropathic pain [...] Back Pain Scale: 84 on 07/09/17; initial [place]: 14 on 07/09/17 4SOAPP-R: 21 on 07/09/17 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 Sex Female Medical Equipment Implanted Date:01/18/21Target Site:Vagina Description Quantity MRI Company Model SLING SUSPEND FASCIA ERIN 2X 7 - COLO (93-4229) 1 [employer]oplast Jeff Unknown JESSEE:No Information Assigning Authority: FDA
--- OUTSIDE RECORDS SUMMARY | 2023-06-22 17:21 | XMS_ITS | Continuity of Care Document ---
Author Name Unknown Organization [facility] Address [address] [facility], 3r d Floor, [address] [place] [address]- Care Team Providers Care Wide Area Network Administrator Name Role Phone Malik FRANCIS, Shanon Arshad Primary Care Physician [facility] Date[facility]s): 10/29/20 - 11/28/20 [facility] [address], [address], [address] [place] [address]- Allergies, Adverse Reactions, Alerts Substance Reaction Severity [...] 10/24/20 14:00:00 EST, Route to Pharmacy Electronically, [facility], Partial fill upon patient request if the prescription is for a schedule II opioid... Start Date: 10/24/20 Status: Ordered gabapentin 300 mg oral capsule 900 mg, 3, capsule, By Mouth, 3 times a day, follow previously given instructions for increasing dose, # 270 capsule, Refills 4, Tot. Refills 4, Maintenance, 10/29/20 15:45:00 EST, Route to Pharmacy Electronically, [facility], replaces prio... Start Date: 10/29/20 Stop Date: 03/28/21 Status: Ordered methadone 5 mg oral tablet See Instructions, 1 tab PO in AM 2 tabs in Afternoon and 1 tab @ HS for pain, # 112 tablet, 0 Refills, Maintenance, 10/29/20 13:13:00 EST, Tablet, [facility], Partial fill upon patient request. Dose Increase on 06/22/2020 to 4 tabs a day, 149... Start Date: 10/29/20 Status: Ordered naloxone 4 mg/0.1 mL nasal spray = 4 mg, Naris, Left, Once, may repeat every 2 to 3 minutes until patient responds, # 2 each, 0 Refills, Soft Stop, 12/13/19 13:32:00 EST, [facility], 166, cm, 12/13/19 12:42:00 EST, [...] Active Patent foramen ovale(Confirmed) 06/06/08 Active *BHN/CCA/CP-Xavier Trivedi-[phone]/Health skilled nursing, active care coordination(Confirmed) Active Neuropathic [...] updated [place] Back Pain Scale: 77 on 1/9/19 3initial Oswestry Disability Index: 76% ( crippled ) on 07/09/17; initial [place] Back Pain Scale: 84 on 07/09/17; initial [place]: 14 on 07/09/17 4SOAPP-R: 21 on 07/09/17 Social History Social History Type Response Tobacco Use: 4 or less cigar ettes(less than 1/4 pack)/day in last 30 days. Sex Female
--- OUTSIDE RECORDS SUMMARY | 2023-06-22 17:21 | XMS_ITS | Continuity of Care Document ---
Author Name Unknown Organization [facility] ter Address [address] [place] [address]- Care Team Providers Care Ladle Puller Name Role Phone Petrona Mosher MD Primary Care Physician Encounter [facility] [place] Date(s): 03/04/22 - 04/09/[address] [address]- Attending Physician: Jareth Cuello MD Admitting Physician: Jareth Cuello MD Referring Physician: Jareth Cuello MD Allergies, Adverse Reactions, [...] substance agreement signed 12.13.2019; preferred pharm: [facility], 12/13/19 13:32:00 EST, Compound, 166, cm, 12/13/19 [...] 3 Refills, Maintenance, 02/28/22 16:35:00 EDT, Tablet, [facility]/pharmacy #0843, Partial fill upon patient request if the prescription is for a schedule II opioid drug., 149.86, cm, 01/29/22 13:59:... Start Date: 02/28/22 Stop Date: 06/28/22 Status: Ordered methadone 5 mg oral tablet See Instructions, 1 tab PO in AM 2 tabs in Afternoon and 1 tab @ HS for pain, # 112 tablet, 0 Refills, Maintenance, 03/28/22 16:16:00 EDT, Tablet, [facility]/pharmacy #0843, Partial fill upon patient request., 03/28/22, [...] Active Patent foramen ovale(Confirmed) 06/06/08 Active *BHN/CCA/CP-Xavier [facility]-[phone]/Health jail, active care coordination(Confirmed) Active Neuropathic pain [...] Back Pain Scale: 84 on 07/09/17; initial [place]: 14 on 07/09/17 5SOAPP-R: 21 on 07/09/17 6cardiology 2016 cited known PVCs Social History Social History Type Response Tobacco Use: 4 or less cigar ettes(less than 1/4 pack)/day in last 30 days. Sex Female Medical Equipment Implanted Date:01/18/21Target Site:Vagina Description Quantity MRI Company Model SLING SUSPEND FASCIA ERIN 2X 7 - COLO (93-6054) 1 [employer]oplast Jeff Unknown JESSEE:No Information Assigning Authority: FDA
--- OUTSIDE RECORDS SUMMARY | 2023-06-22 17:21 | XMS_ITS | Continuity of Care Document ---
Author Name Unknown Organization [facility] Address [address] [place] [address]- Care Team Providers Care Pharmacy Coordinator Name Role Phone Malik FRANCIS, Shanon Arshad Primary Care Physician [facility] Date[facility]s): 08/27/20 - 09/26/20 [facility] [address] [place] [id number] Allergies, Adverse Reactions, Alerts Substance Reaction Severity [...] 05/15/20 14:07:00 EDT, Route to Pharmacy Electronically, [facility], 149.86, cm, 206:22:00 EDT, Height, 67.73, kg, 04/19/20 8:54:00 ED... Start Date: 05/15/20 Stop Date: 10/12/20 Status: Ordered methadone 5 mg oral tablet See Instructions, 1 tab PO in AM 2 tabs in Afternoon and 1 tab @ HS for pain, # 112 tablet, 0 Refills, Maintenance, 09/26/20 10:55:00 EST, Tablet, [facility], Partial [...] Active Patent foramen ovale(Confirmed) 06/06/08 Active *BHN/CCA/CP-Xavier [facility]-[phone]/Health snf, active care coordination(Confirmed) Active Neuropathic pain [...] Back Pain Scale: 84 on 07/09/17; initial [place]: 14 on 07/09/17 4SOAPP-R: 21 on 07/09/17 Social History Social History Type Response Tobacco Use: 4 or less cigar ettes(less than 1/4 pack)/day in last 30 days. Sex Female
--- OUTSIDE RECORDS SUMMARY | 2023-06-22 17:21 | XMS_ITS | Continuity of Care Document ---
Author Name Unknown Organization [facility] Address Unknown Care Team Providers Care Lining Ironer Name Role Phone Petrona Mosher MD Primary Care Physician En[place] [facility] Date(s): 01/16/22 - 02/15/22 [facility] Attending Physician: Kelsey Cartagena Admitting Physician: Kelsey [...] 5 Refills, Maintenance, 08/06/21 8:30:00 EDT, Tablet, [facility], Partial fill upon patient request if the prescription is for aschedule II opioid drug., 150, cm, 07/23/21 22:44:0... Start Date: 08/06/21 Stop Date: 02/02/22 Status: Ordered methadone 5 mg oral tablet See Instructions, 1 tab PO in AM 2 tabs in Afternoon and 1 tab @ HS for pain, # 112 tablet, 0 Refills, Maintenance, 01/29/22 8:22:00 EDT, Tablet, [facility], Partial fill upon patient request., 149.86, cm, 01/27/22 12:58:00 EDT, Height, 71.... Start Date: 01/29/22 Status: Ordered naloxone 4 mg/0.1 mL nasal spray = 4 mg, Naris, Left, Once, may repeat every 2 to 3 minutes until patient responds, # 2 each, 0 Refills, Soft Stop, 12/13/19 13:32:00 EST, [facility], 166, cm, 12/13/19 [...] capsule, 1 Refills, Maintenance, 12/03/21 9:05:00 EST, [facility], 150, cm, 11/25/21 [...] foramen ovale(Confirmed) 06/06/08 Active *BHN/CCA/CP-Xavier [facility]-[phone]/Health residential, active care coordination(Confirmed) Active Neuropathic pain [...] Back Pain Scale: 84 on 07/09/17; initial [place]: 14 on 07/09/17 5SOAPP-R: 21 on 07/09/17 6cardiology 2016 cited known PVCs Social History Social History Type Response Tobacco Use: 4 or less cigar ettes(less than 1/4 pack)/day in last 30 days. Sex Female Medical Equipment Implanted Date:01/18/21Target Site:Vagina Description Quantity MRI Company Model SLING SUSPEND FASCIA ERIN 2X 7 - COLO (19-2739) 1 [employer]oplast Jeff Unknown JESSEE:No Information Assigning Authority: FDA
--- OUTSIDE RECORDS SUMMARY | 2023-06-22 17:21 | XMS_ITS | Continuity of Care Document ---
Author Name Unknown Organization [facility] ter Address [address] [place] [address]- Care Team Providers Care Sql Database Administrator Name Role Phone Malik FRANCIS, Shanon Arshad Primary Care Physician En[place] [facility] [place] Date(s): 12/20/19 - 01/29/[address] [address]- [facility] Attending Physician: Inderjit Roe MD Admitting Physician: Inderjit Roe MD Referring Physician: Inderjit Roe MD Allergies, Adverse Reactions, [...] 0 Refills, Maintenance, 01/26/20 13:17:00 EDT, Tablet, [facility], Partial fill upon patient request, 01/27/20, 166, cm, 12/13/19 12:42:00 EST, Height, 82.6, kg, 07/05... Start Date: 01/26/20 Stop Date: 02/23/20 Status: Ordered naloxone 4 mg/0.1 mL nasal spray = 4 mg, Naris, Left, Once, may repeat every 2 to 3 minutes until patient responds, # 2 each, 0 Refills, Soft Stop, 12/13/19 13:32:00 EST, [facility], 166, cm, 12/13/19 12:42:00 EST, [...] legs(Confirmed) Active Patent foramen ovale(Confirmed) 06/06/08 [phone][facility], active care coordination(Confirmed) Active Neuropathic pain [...] Back Pain Scale: 84 on 07/09/17; initial [place]: 14 on 07/09/17 4SOAPP-R: 21 on 07/09/17 Social History Social History Type Response Tobacco Use: 4 or less cigar ettes(less than 1/4 pack)/day in last 30 days. Sex Female
--- OUTSIDE RECORDS SUMMARY | 2023-06-22 17:21 | XMS_ITS | Continuity of Care Document ---
Author Name Unknown Organization [facility] Address [address] [place] [address]- Care Team Providers Care Farmer Vegetable Name Role Phone Petrona Mosher MD Primary Care Physician [phone] [place] [facility] [place] 02/28/22 - 03/30/22 [facility] [address] [place] [id number] Allergies, Adverse [...] Maintenance, 02/28/22 16:35:00 EDT, Tablet, [facility]/pharmacy #0843, Partial fill upon patient request if the prescription is for a schedule II opioid drug., 149.86, cm, 01/29/22 13:59:... Start Date: 02/28/22 Stop Date: 06/28/22 Status: Ordered methadone 5 mg oral tablet See Instructions, 1 tab PO in AM 2 tabs in Afternoon and 1 tab @ HS for pain, # 112 tablet, 0 Refills, Maintenance, 03/28/22 16:16:00 EDT, [facility], Partial fill upon patient request., 03/28/22, [...] capsule, 1 Refills, Maintenance, 12/03/21 9:05:00 EST, [facility], 150, cm, 11/25/21 9:27:00 [...] Active Patent foramen ovale(Confirmed) 06/06/08 Active *BHN/CCA/CP-Xavier [facility]-[phone]/Health half-way, active care coordination(Confirmed) Active Neuropathic pain [...] Back Pain Scale: 84 on 07/09/17; initial [place]: 14 on 07/09/17 5SOAPP-R: 21 on 07/09/17 6cardiology 2016 cited known PVCs Social History Social History Type Response Tobacco Use: 4 or less cigar ettes(less than 1/4 pack)/day in last 30 days. Sex Female Medical Equipment Implanted Date:01/18/21Target Site:Vagina Description Quantity MRI Company Model SLING SUSPEND FASCIA ERIN 2X 7 - COLO (45-4732) 1 [employer]oplast Jeff Unknown JESSEE:No Information Assigning Authority: FDA
--- OUTSIDE RECORDS SUMMARY | 2023-06-22 17:21 | XMS_ITS | Continuity of Care Document ---
Author Name Unknown Organization [facility] Address [address] [place] [address]- Care Team Providers Care Chaser Helper Name Role Phone Petrona Mosher MD Primary Care Physician [facility] 06[facility]22 - 08/16/22 [facility] [address] [place] [id number] Attending Physician: Aries Neely MD Admitting Physician: Aries Neely MD Referring Physician: Petrona Mosher MD Allergies, [...] 3 Refills, Maintenance, 07/07/22 14:53:00 EDT, [facility], 149.86, cm, 06/24/22 13:07:00 EDT, Height, 69.9, kg, 01/29/22 13:59:00 EDT, Dry Weight Start Date: 07/07/22 Stop Date: 08/06/22 Status: Ordered naloxone 4 mg/0.1 mL nasal spray = 4 mg, Naris, Left, Once, may repeat every 2 to 3 minutes until patient responds, # 2 each, 0 Refills, Soft Stop, 12/13/19 13:32:00 EST, [facility], 166, cm, 12/13/19 12:42:00 [...] capsule, 1 Refills, Maintenance, 12/03/21 9:05:00 EST, [facility], 150, cm, 11/25/21 9:27:00 [...] Patent foramen ovale Confirmed 06/06/08 Active *BHN/CCA/CP-Xavier Trivedi-[phone]/He alth skilled nursing, active care coordination Confirmed Active Neuropathic pain [...] Back Pain Scale: 84 on 07/09/17; initial [place]: 14 on 07/09/17 5SOAPP-R: 21 on 07/09/17 [...] MRI Safety Implantable Status Assigning Authority Unknown [id number] Unknown 08/18/24 Unknown Unknown Active Unknown Patient Care team information Personnel Name: Petrona Mosher MD Address: Address: [address] [place] [address]
--- OUTSIDE RECORDS SUMMARY | 2023-06-22 17:21 | XMS_ITS | Continuity of Care Document ---
Author Name Unknown Organization [facility] Address [address] [place] [address]- Care Team Providers Care Data Center Solutions Architect Name Role Phone Petrona Mosher MD Primary Care Physician [place] [facility] [place] - 04/28/[address] [address]- Attending Physician: Admtr, Ar8 Allergies, Adverse Reactions, [...] 04/12/21 15:07:00 EDT, Route to Pharmacy Electronically, [facility], 149.9, cm... Start Date: 04/12/21 Status: Ordered methadone 5 mg oral tablet See Instructions, 1 tab PO in AM 2 tabs in Afternoon and 1 tab @ HS for pain, # 112 tablet, 0 Refills, Maintenance, 03/29/21 9:45:00 EDT, Tablet, [facility] [...] Refills, Maintenance, 04/08/21 11:01:00 EDT, [facility], 149.9, cm, 03/27/21 13:01:00 EDT, Height, 68.3, [...] Active Patent foramen ovale(Confirmed) 06/06/08 Active *BHN/CCA/CP-Xavier Trivedi-[phone]/Health jail, active care coordination(Confirmed) Active Neuropathic pain [...] Back Pain Scale: 84 on 07/09/17; initial [place]: 14 on 07/09/17 4SOAPP-R: 21 on 07/09/17 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 Sex Female Medical Equipment Implanted Date:01/18/21Target Site:Vagina Description Quantity MRI Company Model SLING SUSPEND FASCIA ERIN 2X 7 - COLO (22-9641) 1 [employer]oplast Jeff Unknown JESSEE:No Information Assigning Authority: FDA
--- OUTSIDE RECORDS SUMMARY | 2023-06-22 17:21 | XMS_ITS | Continuity of Care Document ---
Author Name Unknown Organization [facility] Address [address] [place] [address]- Care Team Providers Care Sales Coordinator Name Role Phone Malik FRANCIS, Shanon Arshad Primary Care Physician [facility] Date[facility]s): 09/25/20 - 10/25/20 [facility] [address] [place] [id number] Allergies, Adverse Reactions, [...] 10/24/20 14:00:00 EST, Route to Pharmacy Electronically, [facility], Partial fill upon patient request if the prescription is for a schedule II opioid... Start Date: 10/24/20 Status: Ordered gabapentin 300 mg oral capsule 300 mg, 1, capsule, By Mouth, 3 times a day, # 90 capsule, Refills 4, Tot. Refills 4, Maintenance, 05/15/20 14:07:00 EDT, Route to Pharmacy Electronically, [facility], 149.86, cm, :22:00 EDT, Height, 67.73, kg, 04/19/20 8:54:00 ED... Start Date: 05/15/20 Stop Date: 10/12/20 Status: Ordered methadone 5 mg oral tablet See Instructions, 1 tab PO in AM 2 tabs in Afternoon and 1 tab @ HS for pain, # 112 tablet, 0 Refills, Maintenance, 09/26/20 10:55:00 EST, Tablet, [facility], Partial fill upon patient request. Dose Increase on 06/22/2020 to 4 tabs a day, 149... Start Date: 09/26/20 Status: Ordered naloxone 4 mg/0.1 mL nasal spray = 4 mg, Naris, Left, Once, may repeat every 2 to 3 minutes until patient responds, # 2 each, 0 Refills, Soft Stop, 12/13/19 13:32:00 EST, [facility], 166, cm, 12/13/19 12:42:00 EST, Height, 82.6, kg, 07/05/18 18:39:00 EDT, Dry Weight Start Date: 12/13/19 Status: Ordered ProAir HFA 90 mcg/inh inhalation aerosol with adapter 2, puffs, Inhalation, Every 4 hours, PRN, # 8.5 Gm, Refills 0, Maintenance, 05/30/16 15:04:51, Aerosol Start Date: 05/30/16 Status: Ordered triamcinolone 0.5% topical cream 1 application, Topically, 2 times a day, for 14 days, apply a thin film to affected area, # 15 Gm, 1 Refills, Acute 11/01/20 20:01:00 EST, 10/04/20 20:01:00 EST, Cream, [facility], 1 application Topically 2 times a day,x14 days,Instr:apply... Start Date: 10/04/20 Stop Date: 11/01/20 Status: Ordered Problem List Condition Effective Dates [...] Active Patent foramen ovale(Confirmed) 06/06/08 Active *BHN/CCA/CP-Xavier [facility]-[phone]/Health retirement, active care coordination(Confirmed) Active Neuropathic pain [...] Back Pain Scale: 84 on 07/09/17; initial [place]: 14 on 07/09/17 4SOAPP-R: 21 on 07/09/17 Social History Social History Type Response Tobacco Use: 4 or less cigar ettes(less than 1/4 pack)/day in last 30 days. Sex Female
--- OUTSIDE RECORDS SUMMARY | 2023-06-22 17:21 | XMS_ITS | Continuity of Care Document ---
Author Name Unknown Organization [facility] Address [address] [place] [address]- Care Team Providers Care Heat Welder Plastics Name Role Phone Petrona Mosher MD Primary Care Physician [phone] Encounter [facility] [place] Date(s): 01/23/22 - 02/22/22 [facility] [address] [place] [id number] Allergies, Adverse Reactions, Alerts Substance [...] 5 Refills, Maintenance, 08/06/21 8:30:00 EDT, Tablet, [facility] [...] 0 Refills, Maintenance, 01/29/22 8:22:00 EDT, Tablet, [facility], Partial fill upon patient request., [...] capsule, 1 Refills, Maintenance, 12/03/21 9:05:00 EST, [facility], 150, cm, 11/25/21 [...] Active Patent foramen ovale(Confirmed) 06/06/08 Active *BHN/CCA/CP-Xavier [place]-[phone]/Health halfway, active care coordination(Confirmed) Active Neuropathic pain [...] Back Pain Scale: 84 on 07/09/17; initial [place]: 14 on 07/09/17 5SOAPP-R: 21 on 07/09/17 6cardiology 2016 cited known PVCs Social History Social History Type Response Tobacco Use: 4 or less cigar ettes(less than 1/4 pack)/day in last 30 days. Sex Female Medical Equipment Implanted Date:01/18/21Target Site:Vagina Description Quantity MRI Company Model SLING SUSPEND FASCIA ERIN 2X 7 - COLO (56-6061) 1 [employer]oplast Jeff Unknown JESSEE:No Information Assigning Authority: FDA
--- OUTSIDE RECORDS SUMMARY | 2023-06-22 17:21 | XMS_ITS | Continuity of Care Document ---
Author Name Unknown Organization [facility] Address [address] [place] [address]- Care Team Providers Care Donor Services Technician Name Role Phone Malik FRANCIS, Shanon Arshad Primary Care Physician ( [phone] [facility] Date(s): 03/13/21 - 04/12/21 [facility] Medicine [address] [place] [address] Allergies, Adverse Reactions, Alerts [...] He... Start Date: 12/13/19 Status: Ordered ergocalciferol 86343 iu oral capsule 50,000 International_Units, 1, capsule, By Mouth, Every week, for 30 days, # 5 capsule, Refills 1, Tot. Refills 1, Acute 04/20/21 12:17:00 EDT, 02/19/21 12:17:00 EDT, Route to Pharmacy Electronically, [facility], Partial fill upon patient r... Start Date: [...] 04/12/21 15:07:00 EDT, Route to Pharmacy Electronically, [facility], 149.9, cm... Start Date: 04/12/21 Status: Ordered methadone 5 mg oral tablet See Instructions, 1 tab PO in AM 2 tabs in Afternoon and 1 tab @ HS for pain, # 112 tablet, 0 Refills, Maintenance, 03/29/21 9:45:00 EDT, Tablet, [facility], Partial [...] Refills, Maintenance, 04/08/21 11:01:00 EDT, [facility], 149.9, cm, 03/27/21 13:01:00 EDT, Height, 68.3, [...] Active Patent foramen ovale(Confirmed) 06/06/08 Active *BHN/CCA/CP-Xavier Trivedi-[phone]/Health long term, active care coordination(Confirmed) Active Neuropathic [...] SUSPEND FASCIA ERIN 2X 7 - COLO (93-5703) 1 Coloplast Jeff Unknown JESSEE:No Information Assigning Authority: FDA
--- OUTSIDE RECORDS SUMMARY | 2023-06-22 17:21 | XMS_ITS | Continuity of Care Document ---
Author Name Unknown Organization [facility] Address [address] [place] [address]- Care Team Providers Care Blast Setter Name Role Phone Malik FRANCIS, Shanon Arshad Primary Care Physician [facility] Date(s): 05/22/20 - 06/21/20 [facility] [address] [place] [address]- [facility] Allergies, Adverse Reactions, Alerts Substance Reaction Severity [...] 05/15/20 14:07:00 EDT, Route to Pharmacy Electronically, [facility], 149.86, cm, :22:00 EDT, Height, 67.73, kg, 04/19/20 8:54:00 ED... Start Date: 05/15/20 Stop Date: 10/12/20 Status: Ordered methadone 5 mg oral tablet 1 tablet = 5 mg, By Mouth, Every 8 hours, intractable pain, # 84 tablet, 0 Refills, Maintenance, 05/24/20 12:25:00 EDT, Tablet, [facility] [...] Active Patent foramen ovale(Confirmed) 06/06/08 Active *BHN/CCA/CP-Xavier [facility]-[phone]/Health assisted, active care coordination(Confirmed) Active Neuropathic pain [...] [place] Back Pain Scale: 77 on 10/27/18 3initial Oswestry Disability Index: 76% ( crippled ) on 07/09/17; initial [place] Back Pain Scale: 84 on 07/09/17; initial [place]: 14 on 07/09/17 4SOAPP-R: 21 on 07/09/17 Social History Social History Type Response Tobacco Use: 4 or less cigar ettes(less than 1/4 pack)/day in last 30 days. Sex Female
--- OUTSIDE RECORDS SUMMARY | 2023-06-22 17:21 | XMS_ITS | Continuity of Care Document ---
Author Name Unknown Organization [facility] Address [address], [address], [address] [place] [address]- Care Team Providers Care Field Engineer Name Role Phone Malik FRANCIS, Shanon Arshad Primary Care Physician [place] [facility] [place] 02/27/21 - 03/29/21 [facility] [address], [address] [place] [address]- Allergies, Adverse Reactions, Alerts Substance Reaction Severity [...] He... Start Date: 12/13/19 Status: Ordered ergocalciferol 10819 iu oral capsule 50,000 International_Units, 1, capsule, By Mouth, Every week, for 30 days, # 5 capsule, Refills 1, Tot. Refills 1, Acute 04/20/21 12:17:00 EDT, 02/19/21 12:17:00 EDT, Route to Pharmacy Electronically, [facility], Partial fill upon patient [...] 10/29/20 15:45:00 EST, Route to Pharmacy Electronically, [facility], replaces prio... Start Date: 10/29/20 Stop Date: 03/28/21 Status: Ordered methadone 5 mg oral tablet See Instructions, 1 tab PO in AM 2 tabs in Afternoon and 1 tab @ HS for pain, # 112 tablet, 0 Refills, Maintenance, 03/29/21 9:45:00 EDT, Tablet, [facility], Partial fill upon patient request., 149.9, cm, 03/27/21 13:01:00 EDT, Height, 68.3... Start Date: 03/29/21 Status: Ordered naloxone 4 mg/0.1 mL nasal spray = 4 mg, Naris, Left, Once, may repeat every 2 to 3 minutes until patient responds, # 2 each, 0 Refills, Soft Stop, 12/13/19 13:32:00 EST, [facility], 166, cm, 12/13/19 12:42:00 [...] Active Patent foramen ovale(Confirmed) 06/06/08 Active *BHN/CCA/CP-Xavier [facility]-[phone]/Health retirement, active care coordination(Confirmed) Active Neuropathic pain [...] Back Pain Scale: 84 on 07/09/17; initial [place]: 14 on 07/09/17 4SOAPP-R: 21 on 07/09/17 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 Sex Female Medical Equipment Implanted Date:01/18/21Target Site:Vagina Description Quantity MRI Company Model SLING SUSPEND FASCIA ERIN 2X 7 - COLO (73-0418) 1 [employer]oplast Jeff Unknown JESSEE:No Information Assigning Authority: FDA
--- OUTSIDE RECORDS SUMMARY | 2023-06-22 17:21 | XMS_ITS | Continuity of Care Document ---
Author Name Unknown Organization [facility] Address [address] [place] [address]- Care Team Providers Care Last Model Department Supervisor Name Role Phone Nomi FRANCIS, Petrona Primary Care Physician [facility] Date(s): 10/23/22 - 11/29/22 [facility] [address] [place], [place] [address] Attending Physician: Aries Neely MD Admitting Physician: [...] 3 Refills, Maintenance, 07/07/22 14:53:00 EDT, [facility], 149.86, cm, 06/24/22 13:07:00 EDT, Height, 69.9, kg, 01/29/22 13:59:00 EDT, Dry Weight Start Date: 07/07/22 Stop Date: 08/06/22 Status: Ordered naloxone 4 mg/0.1 mL nasal spray = 4 mg, Naris, Left, Once, may repeat every 2 to 3 minutes until patient responds, # 2 each, 0 Refills, Soft Stop, 12/13/19 13:32:00 EST, [facility], 166, cm, 12/13/19 12:42:00 EST, [...] capsule, 1 Refills, Maintenance, 12/03/21 9:05:00 EST, [facility], 150, cm, 11/25/21 9:27:00 [...] Patent foramen ovale Confirmed 06/06/08 Active *BHN/CCA/CP-Xavier Trivedi-[phone]/He alth custodial, active care coordination Confirmed Active Neuropathic pain [...] Back Pain Scale: 84 on 07/09/17; initial [place]: 14 on 07/09/17 5SOAPP-R: 21 on 07/09/17 [...] MRI Safety Implantable Status Assigning Authority Unknown [id number] Unknown 08/18/24 Unknown Unknown Active Unknown Patient Care team information Care Team Personnel Name: Christie Han RN Position: [facility] RN Member Role: Primary Care Nurse Name: Naomi Vazquez NP Position: [facility] Associate Professional Member Role: Primary Care Nurse Address: Address: [address] [place] [address] Infectious Disease [place], [place] [address] Name: Petrona Mosher MD Position: [facility] Resident Member Role: PCP Address: Address: [address] [facility] [place] [address]- Name: Kelly Hawk RN Position: [facility] OB RN Member Role: Primary Care Nurse Care Team Related Persons Name: DAILY CORONA Address: home [address] [place], [place] Name: DAILY CORONA Address: home [address], [place] Name: DAILY SAAVEDRA Address: [address] [place] [address] Name: DARRELL PRAKASH Address: home [address] [place], [place] Name: INGA PAGE Name: HOLDEN STALLWORTH Address: home [address] [place] [address]
--- OUTSIDE RECORDS SUMMARY | 2023-06-22 17:21 | XMS_ITS | Continuity of Care Document ---
Author Name Unknown Organization [facility] Address [address] [place] [address]- Care Team Providers Care Monologist Name Role Phone Petrona Mosher MD Primary Care Physician Encounter [facility] Date(s): 09/25/22 - 11/22/22 [facility] [address] [place], [place] [address] Attending Physician: Aries Neely MD Admitting [...] 3 Refills, Maintenance, 07/07/22 14:53:00 EDT, [facility], 149.86, cm, 06/24/22 13:07:00 EDT, Height, 69.9, kg, 01/29/22 13:59:00 EDT, Dry Weight Start Date: 07/07/22 Stop Date: 08/06/22 Status: Ordered naloxone 4 mg/0.1 mL nasal spray = 4 mg, Naris, Left, Once, may repeat every 2 to 3 minutes until patient responds, # 2 each, 0 Refills, Soft Stop, 12/13/19 13:32:00 EST, [facility], 166, cm, 12/13/19 [...] capsule, 1 Refills, Maintenance, 12/03/21 9:05:00 EST, [facility], 150, cm, 11/25/21 [...] Patent foramen ovale Confirmed 06/06/08 Active *BHN/CCA/CP-Xavier Guido-[phone]/He alth alf, active care coordination Confirmed Active Neuropathic pain [...] Back Pain Scale: 84 on 07/09/17; initial [place]: 14 on 07/09/17 5SOAPP-R: 21 on 07/09/17 [...] MRI Safety Implantable Status Assigning Authority Unknown [id number] Unknown 08/18/24 Unknown Unknown Active Unknown Patient Care team information Care Team Personnel Name: Christie Han RN Position: S RN Member Role: Primary Care Nurse Name: Naomi Vazquez NP Position: [facility] Associate Professional Member Role: Primary Care Nurse Address: Address: [address] [place] [address] [place] [address]- Name: Petrona Mosher MD Position: [facility] Resident Member Role: PCP Address: Address: [address] [facility] [place] [address]- Name: Kelly Hawk RN Position: [facility] OB RN Member Role: Primary Care Nurse Care Team Related Persons Name: DAILY CORONA Address: home [address] [place] [address] Name: DAILY CORONA Address: home [address] [place] [address] Name: DAILY SAAVEDRA Address: home [address] [place] [address] Name: DARRELL PRAKASH Address: home [address] [place] [address] Name: INGA PAGE Name: HOLDEN STALLWORTH Address: home [address] [place] [address]
--- OUTSIDE RECORDS SUMMARY | 2023-06-22 17:21 | XMS_ITS | Continuity of Care Document ---
Author Name Unknown Organization [facility] Address [address] [place] [address]- Care Team Providers Care Practice Managers Name Role Phone Malik FRANCIS, Shanon H Primary Care Physician Encounter [facility] Date(s): 11/09/20 - 12/09/20 [facility] [address] [place] [address] Attending Physician: Kelsey Cartagena Admitting Physician: AdmKelsey [...] 10/24/20 14:00:00 EST, Route to Pharmacy Electronically, [facility], Partial fill upon patient request if the prescription is for a schedule II opioid... Start Date: 10/24/20 Status: Ordered gabapentin 300 mg oral capsule 900 mg, 3, capsule, By Mouth, 3 times a day, follow previously given instructions for increasing dose, # 270 capsule, Refills 4, Tot. Refills 4, Maintenance, 10/29/20 15:45:00 EST, Route to Pharmacy Electronically, [facility], replaces prio... Start Date: 10/29/20 Stop Date: 03/28/21 Status: Ordered methadone 5 mg oral tablet See Instructions, 1 tab PO in AM 2 tabs in Afternoon and 1 tab @ HS for pain, # 112 tablet, 0 Refills, Maintenance, 12/03/20 10:08:00 EST, Tablet, [facility], Partial fill upon patient request., 149.86, cm, 11/09/20 12:49:00 EST, Height, 67... Start Date: 12/03/20 Status: Ordered naloxone 4 mg/0.1 mL nasal [...] Active Patent foramen ovale(Confirmed) 06/06/08 Active *BHN/CCA/CP-Xavier Guido-[phone]/Health correction, active care coordination(Confirmed) Active Neuropathic pain [...] [place] Back Pain Scale: 77 on 10/27/18 3initial Oswestry Disability Index: 76% ( crippled ) on 07/09/17; initial [place] Back Pain Scale: 84 on 07/09/17; initial [place]: 14 on 07/09/17 4SOAPP-R: 21 on 07/09/17 Social History Social History Type Response Tobacco Use: 4 or less cigar ettes(less than 1/4 pack)/day in last 30 days. Sex Female
--- OUTSIDE RECORDS SUMMARY | 2023-06-22 17:21 | XMS_ITS | Continuity of Care Document ---
Author Name Unknown Organization [facility] Address [address] [place] [address]- Care Team Providers Care Superior Court Clerk Name Role Phone Malik FRANCIS, Shanon Arshad Primary Care Physician Encounter [facility] Date(s): 08/29/20 - 09/28/[address] [address] Attending Physician: Kelsey Cartagena Admitting Physician: Kelsey [...] 05/15/20 14:07:00 EDT, Route to Pharmacy Electronically, [facility], 149.86, cm, :22:00 EDT, Height, 67.73, kg, 04/19/20 8:54:00 ED... Start Date: 05/15/20 Stop Date: 10/12/20 Status: Ordered methadone 5 mg oral tablet See Instructions, 1 tab PO in AM 2 tabs in Afternoon and 1 tab @ HS for pain, # 112 tablet, 0 Refills, Maintenance, 09/26/20 10:55:00 EST, Tablet, [facility], Partial fill upon patient request. Dose Increase on 06/22/2020 to 4 tabs a day, 149... Start Date: 09/26/20 Status: Ordered naloxone 4 mg/0.1 mL nasal spray = 4 mg, Naris, Left, Once, may repeat every 2 to 3 minutes until patient responds, # 2 each, 0 Refills, Soft Stop, 12/13/19 13:32:00 EST, [facility], 166, cm, 12/13/19 12:42:00 [...] 06/06/08 Active *BHN/CCA/CP-Xavier [facility]-[phone]/Health long term, active care coordination(Confirmed) Active Neuropathic [...] Back Pain Scale: 84 on 07/09/17; initial [place]: 14 on 07/09/17 4SOAPP-R: 21 on 07/09/17 Social History Social History Type Response Tobacco Use: 4 or less cigar ettes(less than 1/4 pack)/day in last 30 days. Sex Female
--- OUTSIDE RECORDS SUMMARY | 2023-06-22 17:22 | XMS_ITS | Continuity of Care Document ---
Author Name Unknown Organization [facility] Address [address] [place] [address]- Care Team Providers Care Shuttle Fixer Name Role Phone Malik FRANCIS, Shanon Arshad Primary Care Physician [facility] Date(s): 10/24/20 - 11/23/20 [facility] [address] [place] [id number] Allergies, Adverse Reactions, [...] 10/24/20 14:00:00 EST, Route to Pharmacy Electronically, [facility], Partial fill upon patient request if the prescription is for a schedule II opioid... Start Date: 10/24/20 Status: Ordered gabapentin 300 mg oral capsule 900 mg, 3, capsule, By Mouth, 3 times a day, follow previously given instructions for increasing dose, # 270 capsule, Refills 4, Tot. Refills 4, Maintenance, 10/29/20 15:45:00 EST, Route to Pharmacy Electronically, [facility], replaces prio... Start Date: 10/29/20 Stop Date: 03/28/21 Status: Ordered methadone 5 mg oral tablet See Instructions, 1 tab PO in AM 2 tabs in Afternoon and 1 tab @ HS for pain, # 112 tablet, 0 Refills, Maintenance, 10/29/20 13:13:00 EST, Tablet, [facility], Partial fill upon patient request. Dose Increase on 06/22/2020 to 4 tabs a day, 149... Start Date: 10/29/20 Status: Ordered naloxone 4 mg/0.1 mL nasal spray = 4 mg, Naris, Left, Once, may repeat every 2 to 3 minutes until patient responds, # 2 each, 0 Refills, Soft Stop, 12/13/19 13:32:00 EST, [facility], 166, cm, 12/13/19 12:42:00 EST, [...] Active Patent foramen ovale(Confirmed) 06/06/08 Active *BHN/CCA/CP-Xaviervicky Trivedi-[phone]/Health mcc, active care coordination(Confirmed) Active Neuropathic pain [...] Back Pain Scale: 84 on 07/09/17; initial [place]: 14 on 07/09/17 4SOAPP-R: 21 on 07/09/17 Social History Social History Type Response Tobacco Use: 4 or less cigar ettes(less than 1/4 pack)/day in last 30 days. Sex Female
--- OUTSIDE RECORDS SUMMARY | 2023-06-22 17:22 | XMS_ITS | Continuity of Care Document ---
Author Name Unknown Organization [facility] Address [address] [place] [address]- Care Team Providers Care Cooking Instructor Name Role Phone Petrona Mosher MD Primary Care Physician [phone] Encounter [facility] Date(s): 06/03/21 - 06/10/[address] [address]- Attending Physician: Khushboo FRANCIS, Jareth Sandoval Admitting Physician: Jareth Cuello MD Allergies, Adverse [...] 15:07:00 EDT, Route to Pharmacy Electronically, [facility], 149.9, cm... Start Date: 04/12/21 Status: Ordered methadone 5 mg oral tablet See Instructions, 1 tab PO in AM 2 tabs in Afternoon and 1 tab @ HS for pain, # 112 tablet, 0 Refills, Maintenance, 05/29/21 11:31:00 EDT, Tablet, [facility], Partial fill upon patient request., 05/29/21, 150, cm, 04/15/21 19:35:00 EDT, Hei... Start Date: 05/29/21 Status: Ordered naloxone 4 mg/0.1 mL nasal spray = 4 mg, Naris, Left, Once, may repeat every 2 to 3 minutes until patient responds, # 2 each, 0 Refills, Soft Stop, 12/13/19 13:32:00 EST, [facility], 166, cm, 12/13/19 [...] Refills, Maintenance, 04/08/21 11:01:00 EDT, [facility], 149.9, cm, 03/27/21 13:01:00 EDT, Height, 68.3, [...] Active Patent foramen ovale(Confirmed) 06/06/08 Active *BHN/CCA/CP-Xaviervicky Trivedi-[phone]/Health fpc, active care coordination(Confirmed) Active Neuropathic pain [...] Back Pain Scale: 84 on 07/09/17; initial [place]: 14 on 07/09/17 4SOAPP-R: 21 on 07/09/17 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 Sex Female Medical Equipment Implanted Date:01/18/21Target Site:Vagina Description Quantity MRI Company Model SLING SUSPEND FASCIA ERIN 2X 7 - COLO (34-8078) 1 [employer]oplast Jeff Unknown JESSEE:No Information Assigning Authority: FDA
--- OUTSIDE RECORDS SUMMARY | 2023-06-22 17:22 | XMS_ITS | Continuity of Care Document ---
Author Name Unknown Organization [facility] Address [address] [place] [address]- Care Team Providers Care Watch Band Assembler Name Role Phone Malik FRANCIS, Shanon Arshad Primary Care Physician [place] [facility] [place]s): 01/15/21 - 02/14/21 [facility] [address] [place] [id number] Attending Physician: Kelsey Cartagena Admitting Physician: AdmKelsey [...] as needed for fever, 0 Refills, Acute, 02/19/20 8:11:00 EST Start Date: 12/07/19 Status: Ordered [...] 10/29/20 15:45:00 EST, Route to Pharmacy Electronically, [facility], replaces prio... Start Date: 10/29/20 Stop Date: 03/28/21 Status: Ordered methadone 5 mg oral tablet See Instructions, 1 tab PO in AM 2 tabs in Afternoon and 1 tab @ HS for pain, # 112 tablet, 0 Refills, Maintenance, 01/29/21 16:24:00 EDT, Tablet, [facility], Partial fill upon patient request., 149.9, cm, 01/25/21 8:53:00 EDT, Height, 68.3... Start Date: 01/29/21 Status: Ordered naloxone 4 mg/0.1 mL nasal spray = 4 mg, Naris, Left, Once, may repeat every 2 to 3 minutes until patient responds, # 2 each, 0 Refills, Soft Stop, 12/13/19 13:32:00 EST, [facility], 166, cm, 12/13/19 12:42:00 [...] spasm, for 30 days, # 90 capsule, 0 Refills, Hard Stop 02/20/21 15:50:00 EDT, 01/21/21 15:50:00 EDT, Capsule, [id number], Partial fill upon patient request if the prescription... Start Date: 01/21/21 Stop Date: 02/20/21 Status: Ordered tiZANidine 2 mg oral capsule 1 capsule = 2 mg, By Mouth, 3 times a day, PRN as needed for muscle spasm, # 90 capsule, 1 Refills,Maintenance, 02/20/21 15:50:00 EDT, Capsule, 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, Persistent moderate(Confirmed) Active Myelopathy(Confirmed) Active Syncope(Confirmed) 06/06/08 Active Back pain, mid(Confirmed) Active Urinary incontinence(Confirmed) Active 14th and 5th digit, s/p capsulotomy and left carpal tunnel release 2updated Oswestry Disability Index: 56% ( severe disability ) on 10/26/18; updated [place] Back Pain Scale: 77 on 10/27/18 3initial Oswestry Disability Index: 76% ( crippled ) on 07/09/17; initial [place] Back Pain Scale: 84 on 07/09/17; initial [place]: 14 on 07/09/17 4SOAPP-R: 21 on 07/09/17 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 Sex Female Medical Equipment Implanted Date:01/18/21Target Site:Vagina Description Quantity MRI Company Model SLING SUSPEND FASCIA ERIN 2X 7 - COLO (27-3290) 1 [employer]oplast Jeff Unknown JESSEE:No Information Assigning Authority: FDA
--- OUTSIDE RECORDS SUMMARY | 2023-06-22 17:22 | XMS_ITS | Continuity of Care Document ---
Author Name Unknown Organization [facility] Address [address] [place] [address]- Care Team Providers Care Scrap Piler Name Role Phone Petrona Mosher MD Primary Care Physician [phone] [place] [facility] Date(s): 06/27/21 - 07/27/21 [facility] [address] [place] [id number] Allergies, Adverse Reactions, Alerts Substance Reaction [...] 07/01/21 12:09:00 EDT, Route to Pharmacy Electronically, [facility], 150, cm, 04/15/21 19:35:00 EDT, Height, 72.7, kg, 04/15/21 19:35:00 EDT, Dry We... Start Date: 07/01/21 Status: Ordered methadone 5 mg oral tablet See Instructions, 1 tab PO in AM 2 tabs in Afternoon and 1 tab @ HS for pain, # 112 tablet, 0 Refills, Maintenance, 06/28/21 16:42:00 EDT, Tablet, [facility], Partial fill upon patient request., 150, cm, 04/15/21 19:35:00 EDT, Height, 72.7,... Start Date: 06/28/21 Status: Ordered naloxone 4 mg/0.1 mL nasal spray = 4 mg, Naris, Left, Once, may repeat every 2 to 3 minutes until patient responds, # 2 each, 0 Refills, Soft Stop, 12/13/19 13:32:00 EST, [facility], 166, cm, 12/13/19 [...] Refills, Maintenance, 04/08/21 11:01:00 EDT, [facility], 149.9, cm, 03/27/21 13:01:00 EDT, Height, 68.3, [...] Active Patent foramen ovale(Confirmed) 06/06/08 Active *BHN/CCA/CP-Xavier [place]-[phone]/Health intermediate, active care coordination(Confirmed) Active Neuropathic pain [...] Back Pain Scale: 84 on 07/09/17; initial [place]: 14 on 07/09/17 4SOAPP-R: 21 on 07/09/17 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 Sex Female Medical Equipment Implanted Date:01/18/21Target Site:Vagina Description Quantity MRI Company Model SLING SUSPEND FASCIA ERIN 2X 7 - COLO (56-9365) 1 [employer]oplast Jeff Unknown JESSEE:No Information Assigning Authority: FDA
--- OUTSIDE RECORDS SUMMARY | 2023-06-22 17:22 | XMS_ITS | Continuity of Care Document ---
Author Name Unknown Organization [facility] Address [address] [place] [address]- Care Team Providers Care Engraver Apprentice Decorative Name Role Phone Malik FRANCIS, Shanon Primary Care Physician [facility]counter [facility] Date[facility]s): 06/28/20 - 06/28/[address] [address]- [facility] Discharge Disposition: A-D/C Home Attending Physician: Majo Dow MD Admitting Physician: Majo Dow MD Referring Physician: Not on Staff, Referring MD Allergies, Adverse Reactions, Alerts Substance Reaction [...] 8:11:00 EST Start Date: 12/07/19 Status: Ordered clindamycin 300 mg oral capsule 1 capsule = 300 mg, By Mouth, Every 6 hours, for 10 days, # 40 capsule, 0 Refills, Acute 07/08/20 22:40:00 EDT, 06/28/20 22:40:00 EDT, Capsule, [facility], 149.86, cm, 06/22/20 12:52:00 EDT, Height, 67.73, kg, 04/19/20 8:54:00 EDT, Dry Weight Start Date: 06/28/20 Stop Date: 07/08/20 Status: Ordered Controlled substance agreement Controlled substance [...] 05/15/20 14:07:00 EDT, Route to Pharmacy Electronically, [facility], 149.86, cm, :22:00 EDT, Height, 67.73, kg, 04/19/20 8:54:00 ED... Start Date: 05/15/20 Stop Date: 10/12/20 Status: Ordered Keflex monohydrate 500 mg oral capsule 1 capsule = 500 mg, By Mouth, 4 times a day, for 10 days, # 40 capsule, 0 Refills, Acute 07/08/20 22:40:00 EDT, 06/28/20 22:40:00 EDT, Capsule, [facility], 149.86, cm, 06/22/20 12:52:00 EDT, Height, 67.73, kg, 04/19/20 8:54:00 EDT, Dry Weight Start Date: 06/28/20 Stop Date: 07/08/20 Status: Ordered methadone 5 mg oral tablet See Instructions, 1 tab PO in AM 2 tabs in Afternoon and 1 tab @ HS, # 112 tablet, 0 Refills, Maintenance, 06/25/20 19:54:00 EDT, Tablet, [facility], Partial fill upon patient request. Dose Increase on 06/22/2020 to 4 tabs a day, 149.86, cm,... Start Date: 06/25/20 Status: Ordered naloxone 4 mg/0.1 mL nasal spray = 4 mg, Naris, Left, Once, may repeat every 2 to 3 minutes until patient responds, # 2 each, 0 Refills, Soft Stop, 12/13/19 13:32:00 EST, [facility], 166, cm, 12/13/19 12:42:00 [...] Active Patent foramen ovale(Confirmed) 06/06/08 Active *BHN/CCA/CP-Xavier Banuelos-[phone]/[facility], active care coordination(Confirmed) Active Neuropathic pain [...] Back Pain Scale: 84 on 07/09/17; initial [place]: 14 on 07/09/17 4SOAPP-R: 21 on 07/09/17 Vital Signs Most recent to oldest [Reference Range]: 1 2 3 Oxygen Saturation [94-100 %] 100 % (06/28/20 10:39 PM) 100 % (06/28/20 8:10 PM) 100 % (06/28/20 3:46 PM) Pulse Rate [55-90 bpm] 65 bpm (06/28/20 10:39 PM) 65 bpm (06/28/20 8:10 PM) 65 bpm (06/28/20 3:46 PM) Blood Pressure [90-138/55-84 mm Hg] 104/65mm Hg (06/28/20 10:39 PM) 139/76mm Hg *H* (06/28/20 8:10 PM) 123/67mm Hg (06/28/20 3:46 PM) Respiratory Rate [16-30 br/min] 18 br/min (06/28/20 10:39 PM) 18 br/min (06/28/20 8:10 PM) 18 br/min (06/28/20 3:46 PM) Temperature [96.8-100.4 DegF] 98.1 DegF (06/28/20 10:39 PM) 98.3 DegF (06/28/20 8:10 PM) 98.5 DegF (06/28/20 3:46 PM) Mode of Delivery (Oxygen) Room air (06/28/20 10:39 PM) Room air (06/28/20 8:10 PM) Room air (06/28/20 3:46 PM) Blood pressure sites Arm, right (06/28/20 10:39 PM) Arm, left (06/28/20 8:10 PM) Arm, left (06/28/20 3:46 PM) Temperature Route Oral (06/28/20 10:39 PM) Oral (06/28/20 8:10 PM) Oral (06/28/20 3:46 PM) Social History Social History Type Response Tobacco Use: 4 or less cigar ettes(less than 1/4 pack)/day in last 30 days. Sex Female
--- OUTSIDE RECORDS SUMMARY | 2023-06-22 17:22 | XMS_ITS | Continuity of Care Document ---
Author Name Unknown Organization [facility] Address [address] [place] [address]- Care Team Providers Care Coke Drawer Name Role Phone Malik FRANCIS, Shanon Arshad Primary Care Physician [facility] Date[facility]s): 08/[facility]20 - 09/27/20 [facility] [address] [place] [id number] Attending Physician: Kelsey Cartagena Admitting Physician: Kelsye Cartagena Referring Physician: AdmtrKelsey Allergies, Adverse Reactions, [...] 05/15/20 14:07:00 EDT, Route to Pharmacy Electronically, [facility], 149.86, cm, :22:00 EDT, Height, 67.73, kg, 04/19/20 8:54:00 ED... Start Date: 05/15/20 Stop Date: 10/12/20 Status: Ordered methadone 5 mg oral tablet See Instructions, 1 tab PO in AM 2 tabs in Afternoon and 1 tab @ HS for pain, # 112 tablet, 0 Refills, Maintenance, 09/26/20 10:55:00 EST, Tablet, [facility], [...] Patent foramen ovale(Confirmed) 06/06/08 Active *BHN/CCA/CP-Xavier [facility]-[phone]/Health detention, active care coordination(Confirmed) Active Neuropathic pain of [...] Back Pain Scale: 84 on 07/09/17; initial [place]: 14 on 07/09/17 4SOAPP-R: 21 on 07/09/17 Social History Social History Type Response Tobacco Use: 4 or less cigar ettes(less than 1/4 pack)/day in last 30 days. Sex Female
--- OUTSIDE RECORDS SUMMARY | 2023-06-22 17:22 | XMS_ITS | Continuity of Care Document ---
Author Name Unknown Organization [facility] ter Address [address] [place] [address]- Care Team Providers Care Food Service Aide Name Role Phone Malik FRANCIS, Shanon Arshad Primary Care Physician ( [phone] [place] [facility] [place] 04/15/21 - 04/16/[address] [address]- Discharge Disposition: A-D/C Walkout Attending Physician: Not on Staff, Attending MD Admitting Physician: Not on Staff, Admitting MD Referring Physician: Not on Staff, Referring [...] He... Start Date: 12/13/19 Status: Ordered ergocalciferol 28066 iu oral capsule 50,000 International_Units, 1, capsule, By Mouth, Every week, for 30 days, # 5 capsule, Refills 1, Tot. Refills 1, Acute 04/20/21 12:17:00 EDT, 02/19/21 12:17:00 EDT, Route to Pharmacy Electronically, [facility], Partial fill upon patient r... Start Date: [...] 15:07:00 EDT, Route to Pharmacy Electronically, [facility], 149.9, cm... Start Date: 04/12/21 Status: Ordered methadone 5 mg oral tablet See Instructions, 1 tab PO in AM 2 tabs in Afternoon and 1 tab @ HS for pain, # 112 tablet, 0 Refills, Maintenance, 03/29/21 9:45:00 EDT, Tablet, [facility], Partial fill upon patient request., 149.9, cm, 03/27/21 13:01:00 EDT, Height, 68.3... Start Date: 03/29/21 Status: Ordered naloxone 4 mg/0.1 mL nasal spray = 4 mg, Naris, Left, Once, may repeat every 2 to 3 minutes until patient responds, # 2 each, 0 Refills, Soft Stop, 12/13/19 13:32:00 EST, [facility], 166, cm, 12/13/19 12:42:00 [...] Refills, Maintenance, 04/08/21 11:01:00 EDT, [facility], 149.9, cm, 03/27/21 13:01:00 EDT, Height, 68.3, [...] Active Patent foramen ovale(Confirmed) 06/06/08 Active *BHN/CCA/CP-Xavier Guido-[phone]/Health shelter, active care coordination(Confirmed) Active Neuropathic pain [...] Back Pain Scale: 84 on 07/09/17; initial [place]: 14 on 07/09/17 4SOAPP-R: 21 on 07/09/17 5cardiology 2016 cited known PVCs Results Radiology Reports * Exam Date Time Procedure Performing Provider Status 04/15/21 7:25 PM Chest 2 Views Frontal and Lat Melissa Whiteside (Verified) Notes: (Chest 2 Views Frontal and Lat) Reason For Exam: Chest Pain;Other: RESULT: Chest 2 Views Frontal and Lat Chest 2 Views Frontal and Lat Reason: Other:; Chest Pain; Clinical Question(s): Other: COMPARISON: None. FINDINGS: LINES AND TUBES: 07/05/2018 LUNGS AND PLEURA: Clear lungs. Normal pulmonary vascularity. No pleural effusion. No pneumothorax. HEART, MEDIASTINUM AND KILEY: Heart is normal in size. Normal upper mediastinal and hilar contour. BONES AND SOFT TISSUES: No acute abnormality. IMPRESSION: No acute abnormality. WSN: [id number] Ordering Physician: Bari Collado Dictated By: Brandi Ricci MD Dictated Date/Time: 04/15/21 7:30 pm Reviewed By: Brandi Ricci MD Signed By: Brandi Ricci MD Signed Date/Time: 04/15/21 7:30 pm Transcribed By: LINDA Transcribed Date/Time: 04/15/21 7:26 pm Vital Signs Most recent to oldest [Reference Range]: 1 2 3 Height 150 cm (04/15/21 7:35 PM) 150 cm (04/15/21 7:01 PM) Weight 72.7 kg (04/15/21 7:35 PM) 72.7 kg (04/15/21 7:01 PM) Oxygen Saturation [94-100 %] 100 % (04/15/21 9:54 PM) 100 % (04/15/21 7:01 PM) 100 % (04/15/21 6:49 PM) Pulse Rate [55-90 bpm] 70 bpm (04/15/21 9:54 PM) 80 bpm (04/15/21 7:01 PM) 89 bpm (04/15/21 6:49 PM) Body Mass Index [18.5-24.99] 32.31 *>HHI* (04/15/21 7:01 PM) Blood Pressure [90-138/55-84 mm Hg] 112/74mm Hg (04/15/21 9:54 PM) 116/64mm Hg (04/15/21 7:01 PM) Respiratory Rate [16-30 br/min] 18 br/min (04/15/21 9:54 PM) 16 br/min (04/15/21 7:01 PM) Temperature [96.8-100.4 DegF] 98.6 DegF (04/15/21 7:01 PM) Mode of Delivery (Oxygen) room air (04/15/21 9:54 PM) Room air (04/15/21 7:01 PM) Room air (04/15/21 6:49 PM) Blood pressure sites Arm, right (04/15/21 9:54 PM) Arm, left (04/15/21 7:01 PM) Temperature Route Oral (04/15/21 7:01 PM) Dry Weight 72.7 kg (04/15/21 7:35 PM) 72.7 kg (04/15/21 7:01 PM) Weight Obtained Via Standing scale (04/15/21 7:01 PM) Dry Weight Obtained Via Standing scale (04/15/21 7:01 PM) Social History Social History Type Response Tobacco Use: 4 or less cigar ettes(less than 1/4 pack)/day in last 30 days. Sex Female Medical Equipment Implanted Date:01/18/21Target Site:Vagina Description Quantity MRI Company Model SLING SUSPEND FASCIA ERIN 2X 7 - COLO (38-6938) 1 Coloplast Jeff Unknown JESSEE:No Information Assigning Authority: FDA
--- OUTSIDE RECORDS SUMMARY | 2023-06-22 17:22 | XMS_ITS | Continuity of Care Document ---
Author Name Unknown Organization [facility] Address [address] [place] [address]- Care Team Providers Care Web Development Instructor Name Role Phone Malik FRANCIS, Shanon H Primary Care Physician [facility] Date(s): 01/02/21 - 02/01/21 [facility] [address] [place] [id number] Referring Physician: Gisel Chinchilla Allergies, Adverse Reactions, [...] 0 Refills, Maintenance, 01/29/21 16:24:00 EDT, Tablet, [facility], [...] capsule, 0 Refills,Maintenance, 01/21/21 15:50:00 EDT, Capsule, [facility] #[id number], Partial fill upon patient request [...] Active Patent foramen ovale(Confirmed) 06/06/08 Active *BHN/CCA/CP-Xavier Guido-[phone]/Health long term, active care coordination(Confirmed) Active Neuropathic [...] Back Pain Scale: 84 on 07/09/17; initial [place]: 14 on 07/09/17 4SOAPP-R: 21 on 07/09/17 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 Sex Female Medical Equipment Implanted Date:01/18/21Target Site:Vagina Description Quantity MRI Company Model SLING SUSPEND FASCIA ERIN 2X 7 - COLO ([id number]) 1 [employer]oplast Jeff Unknown JESSEE:No Information Assigning Authority: FDA
--- OUTSIDE RECORDS SUMMARY | 2023-06-22 17:22 | XMS_ITS | Continuity of Care Document ---
Author Name Unknown Organization [facility] Address [address] [place] [address]- Care Team Providers Care Lap Winding Machine Operator Name Role Phone Petrona Mosher MD Primary Care Physician Encounter [facility] [place] Date(s): 03/27/22 - 04/26/22 [facility] [address] [place] [id number] Allergies, Adverse Reactions, Alerts Substance [...] 3 Refills, Maintenance, 02/28/22 16:35:00 EDT, Tablet, [facility]acy #[id number], Partial fill upon patient [...] capsule, 1 Refills, Maintenance, 12/03/21 9:05:00 EST, [facility], 150, cm, 11/25/21 9:27:00 EST, [...] Active Patent foramen ovale(Confirmed) 8/19/08 Active *BHN/CCA/CP-Xavier Guido-[phone]/Health retirement, active care coordination(Confirmed) Active Neuropathic pain [...] crippled ) on 11/25/21; updated [place] Back Pain Scale: 87 on 11/25/21 3updated Oswestry Disability Index: 56% ( severe disability ) on 10/26/18; updated [place] Back Pain Scale: 77 on 10/27/18 4initial Oswestry Disability Index: 76% ( crippled ) on 07/09/17; initial [place] Back Pain Scale: 84 on 07/09/17; initial [place]: 14 on 07/09/17 5SOAPP-R: 21 on 07/09/17 6cardiology 2016 cited known PVCs Social History Social History Type Response Tobacco Use: 4 or less cigar ettes(less than 1/4 pack)/day in last 30 days. Sex Female Medical Equipment Implanted Date:01/18/21Target Site:Vagina Description Quantity MRI Company Model SLING SUSPEND FASCIA ERIN 2X 7 - COLO ([id number]) 1 [employer]oplast Jeff Unknown JESSEE:No Information Assigning Authority: FDA
--- OUTSIDE RECORDS SUMMARY | 2023-06-22 17:22 | XMS_ITS | Continuity of Care Document ---
Author Name Unknown Organization [facility] Address Unknown Care Team Providers Care Assistant Shift Supervisor Name Role Phone Petrona Mosher MD Primary Care Physician Encounter [facility] [place] Date(s): 01/16/22 - 01/23/22 [facility] Encounter Diagnosis Spontanous paralysis of both legs(Discharge Diagnosis) - 01/18/22 Neurogenic bladder(Discharge Diagnosis) - 01/18/22 Chronic pain syndrome(Discharge Diagnosis) - 01/18/22 Gait abnormality(Discharge Diagnosis) - 01/18/22 Attending Physician: Trevor Plascencia MD Referring Physician: [...] Maintenance, 08/06/21 8:30:00 EDT, Tablet, [facility], Partial fill upon patient request if the prescription is for aschedule II opioid drug., 150, cm, 07/23/21 22:44:0... Start Date: 08/06/21 Stop Date: 02/02/22 Status: Ordered methadone 5 mg oral tablet See Instructions, 1 tab PO in AM 2 tabs in Afternoon and 1 tab @ HS for pain, # 112 tablet, 0 Refills, Maintenance, 12/30/21 8:36:00 EDT, Tablet, [facility], Partial fill upon patient request., 12/31/21, 150, cm, 11/25/21 9:27:00 EST, [facility]... Start Date: 12/30/21 Status: Ordered naloxone 4 mg/0.1 mL nasal spray = 4 mg, Naris, Left, Once, may repeat every 2 to 3 minutes until patient responds, # 2 each, 0 Refills, Soft Stop, 12/13/19 13:32:00 EST, [facility], 166, cm, 12/13/19 [...] 1 Refills, Maintenance, 12/03/21 9:05:00 EST, [facility], 150, cm, 11/25/21 [...] Patent foramen ovale(Confirmed) 06/06/08 Active *BHN/CCA/CP-Xavier [facility]-[phone]/Health assisted, active care coordination(Confirmed) Active Neuropathic pain [...] Back Pain Scale: 84 on 07/09/17; initial [place]: 14 on 07/09/17 5SOAPP-R: 21 on 07/09/17 6cardiology 2016 cited known PVCs Diagnosis Diagnosis Type Effective Dates Health Status Clinical Service Informant Spontanous paralysis of both legs Discharge Diagnosis 01/18/22 Neurogenic bladder Discharge Diagnosis 01/18/22 Chronic pain syndrome Discharge Diagnosis 01/18/22 Gait abnormality Discharge Diagnosis 01/18/22 Vital Signs Most recent to oldest [Reference Range]: 1 Height 150 cm (01/16/22 3:58 PM) Weight 71.8 kg (01/16/22 3:58 PM) Oxygen Saturation [94-100 %] 98 % (01/16/22 3:58 PM) Pulse Rate [55-90 bpm] 74 bpm (01/16/22 3:58 PM) Body Mass Index [18.5-24.99] 31.91 *>HHI* (01/16/22 3:58 PM) Blood Pressure [90-138/55-84 mm Hg] 127/ 57mm Hg (01/16/22 3:58 PM) Temperature [96.8-100.4 DegF] 97.8 DegF (01/16/22 3:58 PM) Blood pressure sites Arm, left (01/16/22 3:58 PM) Temperature Route Temporal (01/16/22 3:58 PM) Social History Social History Type Response Tobacco Use: 4 or less cigar ettes(less than 1/4 pack)/day in last 30 days. Sex Female Medical Equipment Implanted Date:01/18/21Target Site:Vagina Description Quantity MRI Company Model SLING SUSPEND FASCIA ERIN 2X 7 - COLO (01-0868) 1 [employer]oplast Jeff Unknown JESSEE:No Information Assigning Authority: FDA
--- OUTSIDE RECORDS SUMMARY | 2023-06-22 17:22 | XMS_ITS | Continuity of Care Document ---
Author Name Unknown Organization [facility] Address [address] [place] [address]- Care Team Providers Care Siding Applicator Name Role Phone Petrona Mosher MD Primary Care Physician [phone] Encounter [facility] Date(s): 01/23/22 - 02/22/22 [facility] [address] [address] Attending Physician: Admasuncion, Kelsey Admitting Physician: AdmtrKelsey Referring Physician: Admtr, Ar8 [...] 5 Refills, Maintenance, 08/06/21 8:30:00 EDT, Tablet, [facility], Partial [...] 0 Refills, Maintenance, 01/29/22 8:22:00 EDT, Tablet, [facility], Partial [...] capsule, 1 Refills, Maintenance, 12/03/21 9:05:00 EST, [facility], 150, cm, 11/25/21 9:27:00 [...] foramen ovale(Confirmed) 06/06/08 Active *BHN/CCA/CP-Xavier [facility]-[phone]/Health [place] [facility], active care coordination(Confirmed) [...] Back Pain Scale: 84 on 07/09/17; initial [place]: 14 on 07/09/17 5SOAPP-R: 21 on 07/09/17 6cardiology 2016 cited known PVCs Social History Social History Type Response Tobacco Use: 4 or less cigar ettes(less than 1/4 pack)/day in last 30 days. Sex Female Medical Equipment Implanted Date:01/18/21Target Site:Vagina Description Quantity MRI Company Model SLING SUSPEND FASCIA ERIN 2X 7 - COLO ([id number]) 1 [employer]oplast Jeff Unknown JESSEE:No Information Assigning Authority: FDA
--- OUTSIDE RECORDS SUMMARY | 2023-06-22 17:22 | XMS_ITS | Continuity of Care Document ---
Author Name Unknown Organization [facility] Address [address] [place] [address]- Care Team Providers Care Ornamenter Hand Name Role Phone Malik FRANCIS, Shanon Primary Care Physician ( [phone] [place] [facility] [place]s): 08/29/20 - 09/25/[address] [id number] Discharge Disposition: A-D/C Home Attending Physician: Dewey Ordaz MD Admitting Physician: Dewey Ordaz MD Referring Physician: Dewey Ordaz MD Allergies, Adverse Reactions, Alerts Substance Reaction [...] 05/15/20 14:07:00 EDT, Route to Pharmacy Electronically, [facility], 149.86, cm, :22:00 EDT, Height, 67.73, kg, 04/19/20 8:54:00 ED... Start Date: 05/15/20 Stop Date: 10/12/20 Status: Ordered methadone 5 mg oral tablet See Instructions, 1 tab PO in AM 2 tabs in Afternoon and 1 tab @ HS for pain, # 112 tablet, 0 Refills, Maintenance, 08/27/20 13:35:00 EST, Tablet, [facility], Partial fill upon patient request. Dose Increase on 06/22/2020 to 4 tabs a day, 149... Start Date: 08/27/20 Status: Ordered naloxone 4 mg/0.1 mL nasal spray = 4 mg, Naris, Left, Once, may repeat every 2 to 3 minutes until patient responds, # 2 each, 0 Refills, Soft Stop, 12/13/19 13:32:00 EST, [facility], 166, cm, 12/13/19 12:42:00 [...] Patent foramen ovale(Confirmed) 06/06/08 Active *BHN/CCA/CP-Xavier [facility]-[phone]/Health half-way, active care coordination(Confirmed) Active Neuropathic pain [...] Pain Scale: 84 on 07/09/17; initial [place]: 14 on 07/09/17 4SOAPP-R: 21 on 07/09/17 Social History Social History Type Response Tobacco Use: 4 or less cigar ettes(less than 1/4 pack)/day in last 30 days. Sex Female
--- OUTSIDE RECORDS SUMMARY | 2023-06-22 17:22 | XMS_ITS | Continuity of Care Document ---
Author Name Unknown Organization [facility] ter Address [address] [place] [address]- Care Team Providers Care Animal Nurse Name Role Phone Malik FRANCIS, Shanon H Primary Care Physician [facility]counter [facility] Date(s): 12/16/19 - 02/05/[address] [address]- [facility] Attending Physician: Charles Brock MD Allergies, Adverse [...] 0 Refills, Maintenance, 01/26/20 13:17:00 EDT, Tablet, [facility], [...] Active Patent foramen ovale(Confirmed) 06/06/08 Active *BHN/CCA/CP-Xavier Trivedi-[phone]/Health [facility], active care coordination(Confirmed) Active Neuropathic pain [...] Back Pain Scale: 84 on 07/09/17; initial [place]: 14 on 07/09/17 4SOAPP-R: 21 on 07/09/17 Social History Social History Type Response Tobacco Use: 4 or less cigar ettes(less than 1/4 pack)/day in last 30 days. Sex Female
--- OUTSIDE RECORDS SUMMARY | 2023-06-22 17:22 | XMS_ITS | Continuity of Care Document ---
Author Name Unknown Organization [facility] Address [address] [place] [address]- Care Team Providers Care Interventional Nurse Name Role Phone Petrona Mosher MD Primary Care Physician [phone] [place] [facility] [place] - 08/25/21 [facility] [address] [place] [id number] Allergies, Adverse Reactions, [...] 5 Refills, Maintenance, 08/06/21 8:30:00 EDT, Tablet, [facility], Partial fill upon patient request if the prescription is for aschedule II opioid drug., 150, cm, 07/23/21 22:44:0... Start Date: 08/06/21 Stop Date: 02/02/22 Status: Ordered methadone 5 mg oral tablet See Instructions, 1 tab PO in AM 2 tabs in Afternoon and 1 tab @ HS for pain, # 112 tablet, 0 Refills, Maintenance, 07/29/21 12:39:00 EDT, Tablet, [facility], Partial fill upon patient request., 07/30/21, 150, cm, 07/23/21 22:44:00 EDT, Hei... Start Date: 07/29/21 Status: Ordered naloxone 4 mg/0.1 mL nasal spray = 4 mg, Naris, Left, Once, may repeat every 2 to 3 minutes until patient responds, # 2 each, 0 Refills, Soft Stop, 12/13/19 13:32:00 EST, [facility], 166, cm, 12/13/19 [...] Refills, Maintenance, 04/08/21 11:01:00 EDT, [facility], 149.9, cm, 03/27/21 13:01:00 EDT, Height, 68.3, [...] Active Patent foramen ovale(Confirmed) 06/06/08 Active *BHN/CCA/CP-Xavier Banuelos-[phone]/Health senior living, active care coordination(Confirmed) Active Neuropathic [...] Back Pain Scale: 84 on 07/09/17; initial [place]: 14 on 07/09/17 4SOAPP-R: 21 on 07/09/17 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 Sex Female Medical Equipment Implanted Date:01/18/21Target Site:Vagina Description Quantity MRI Company Model SLING SUSPEND FASCIA ERIN 2X 7 - COLO (68-2788) 1 [employer] Jeff Unknown JESSEE:No Information Assigning Authority: FDA
--- OUTSIDE RECORDS SUMMARY | 2023-06-22 17:22 | XMS_ITS | Continuity of Care Document ---
Author Name Unknown Organization [facility] Address [address] [place] [address]- Care Team Providers Care Recovery Room Rn Name Role Phone Petrona Mosher MD Primary Care Physician [phone] Encounter [facility] [place] Date(s): 01/28/22 - 02/27/22 [facility] [address] [place] [id number]- Allergies, Adverse Reactions, Alerts Substance Reaction Severity [...] 5 Refills, Maintenance, 08/06/21 8:30:00 EDT, Tablet, [facility], Partial fill upon patient request if the prescription is for aschedule II opioid drug., 150, cm, 07/23/21 22:44:0... Start Date: 08/06/21 Stop Date: 02/02/22 Status: Ordered methadone 5 mg oral tablet See Instructions, 1 tab PO in AM 2 tabs in Afternoon and 1 tab @ HS for pain, # 112 tablet, 0 Refills, Maintenance, 02/26/22 9:52:00 EDT, Tablet, [email or web address], Partial fill upon patient request., 02/28/22, 149.86, cm, 01/29/22 13:59:00 EDT, H... Start Date: 02/26/22 Status: Ordered naloxone 4 mg/0.1 mL nasal spray = 4 mg, Naris, Left, Once, may repeat every 2 to 3 minutes until patient responds, # 2 each, 0 Refills, Soft Stop, 12/13/19 13:32:00 EST, [facility], 166, cm, 12/13/19 12:42:00 [...] capsule, 1 Refills, Maintenance, 12/03/21 9:05:00 EST, [facility], 150, cm, 11/25/21 9:27:00 [...] foramen ovale(Confirmed) 06/06/08 Active *BHN/CCA/CP-[facility]-[phone]/Health shelter, active care coordination(Confirmed) Active Neuropathic pain [...] Back Pain Scale: 84 on 07/09/17; initial [place]: 14 on 07/09/17 5SOAPP-R: 21 on 07/09/17 6cardiology 2016 cited known PVCs Social History Social History Type Response Tobacco Use: 4 or less cigar ettes(less than 1/4 pack)/day in last 30 days. Sex Female Medical Equipment Implanted Date:01/18/21Target Site:Vagina Description Quantity MRI Company Model SLING SUSPEND FASCIA ERIN 2X 7 - COLO (14-2578) 1 [employer]oplast Jeff Unknown JESSEE:No Information Assigning Authority: FDA
--- OUTSIDE RECORDS SUMMARY | 2023-06-22 17:22 | XMS_ITS | Continuity of Care Document ---
Author Name Unknown Organization [facility] Address Unknown Care Team Providers Care Complaints Coordinator Name Role Phone Petrona Mosher MD Primary Care Physician [phone] Encounter [facility] [place] Date(s): 08/06/21 - 09/05/21 [facility] Attending Physician: Kelsey Cartagena Admitting Physician: [...] 5 Refills, Maintenance, 08/06/21 8:30:00 EDT, Tablet, [facility], Partial fill upon patient request if the prescription is for aschedule II opioid drug., 150, cm, 07/23/21 22:44:0... Start Date: 08/06/21 Stop Date: 02/02/22 Status: Ordered methadone 5 mg oral tablet See Instructions, 1 tab PO in AM 2 tabs in Afternoon and 1 tab @ HS for pain, # 112 tablet, 0 Refills, Maintenance, 09/03/21 10:32:00 EST, Tablet, [facility], Partial fill upon patient request., 150, cm, 08/13/21 9:57:00 EDT, Height, 72.7,... Start Date: 09/03/21 Status: Ordered naloxone 4 mg/0.1 mL nasal spray = 4 mg, Naris, Left, Once, may repeat every 2 to 3 minutes until patient responds, # 2 each, 0 Refills, Soft Stop, 12/13/19 13:32:00 EST, [facility], 166, cm, 12/13/19 12:42:00 [...] Refills, Maintenance, 04/08/21 11:01:00 EDT, [facility], 149.9, cm, 03/27/21 13:01:00 EDT, Height, 68.3, [...] Active Patent foramen ovale(Confirmed) 06/06/08 Active *BHN/CCA/[facility]-[phone]/Health fdc, active care coordination(Confirmed) Active Neuropathic pain [...] Back Pain Scale: 84 on 07/09/17; initial [place]: 14 on 07/09/17 4SOAPP-R: 21 on 07/09/17 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 Sex Female Medical Equipment Implanted Date:01/18/21Target Site:Vagina Description Quantity MRI Company Model SLING SUSPEND FASCIA ERIN 2X 7 - COLO ([id number]) 1 [employer] Jeff Unknown JESSEE:No Information Assigning Authority: FDA
--- OUTSIDE RECORDS SUMMARY | 2023-06-22 17:22 | XMS_ITS | Continuity of Care Document ---
Author Name Unknown Organization [facility] Address [address] [place] [address]- Care Team Providers Care Lithographic Plate Maker Name Role Phone Petrona Mosher MD Primary Care Physician Encounter [facility] Date(s): 03/27/21 - 04/26/21 [facility] [address] [place] [address]- Attending Physician: AdmKelsey roland Admitting Physician: AdmtrKelsey Referring Physician: Admtr, Ar8 [...] 04/12/21 15:07:00 EDT, Route to Pharmacy Electronically, [facility], 149.9, cm... Start Date: 04/12/21 Status: Ordered methadone 5 mg oral tablet See Instructions, 1 tab PO in AM 2 tabs in Afternoon and 1 tab @ HS for pain, # 112 tablet, 0 Refills, Maintenance, 03/29/21 9:45:00 EDT, Tablet, [facility], Partial fill upon patient request., 149.9, cm, 03/27/21 13:01:00 EDT, Height, 68.3... Start Date: 03/29/21 Status: Ordered naloxone 4 mg/0.1 mL nasal spray = 4 mg, Naris, Left, Once, may repeat every 2 to 3 minutes until patient responds, # 2 each, 0 Refills, Soft Stop, 12/13/19 13:32:00 EST, [facility], 166, cm, 12/13/19 12:42:00 EST, [...] Refills, Maintenance, 04/08/21 11:01:00 EDT, [facility], 149.9, cm, 03/27/21 13:01:00 EDT, Height, 68.3, [...] Active Patent foramen ovale(Confirmed) 06/06/08 Active *BHN/CCA/CP-X[facility]-[phone]/Health custodial, active care coordination(Confirmed) Active Neuropathic pain of lower extremity(Confirmed) Active Posttraumatic stress disorder(Confirmed) Active 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, Persistent moderate(Confirmed) Active Myelopathy(Confirmed) Active Syncope(Confirmed) 5 06/06/08 Active Back pain, mid(Confirmed) Active Urinary incontinence(Confirmed) Active Vitamin D deficiency(Confirmed) Active 14th and 5th digit, s/p capsulotomy and left carpal tunnel release 2updated Oswestry Disability Index: 56% ( severe disability ) on 1/8/19; updated [place] Back Pain Scale: 77 on 10/27/18 3initial Oswestry Disability Index: 76% ( crippled ) on 07/09/17; initial [place] Back Pain Scale: 84 on 07/09/17; initial [place]: 14 on 07/09/17 4SOAPP-R: 21 on 07/09/17 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 Sex Female Medical Equipment Implanted Date:01/18/21Target Site:Vagina Description Quantity MRI Company Model SLING SUSPEND FASCIA ERIN 2X 7 - COLO ([id number]) 1 [employer] Jeff Unknown JESSEE:No Information Assigning Authority: FDA
--- OUTSIDE RECORDS SUMMARY | 2023-06-22 17:22 | XMS_ITS | Continuity of Care Document ---
Author Name Unknown Organization [facility] Address [address] [place] [address]- Care Team Providers Care Stave Bolt Equalizer Name Role Phone Petrona Mosher MD Primary Care Physician [phone] [facility] Date(s): 11/19/21 - 12/22/[address] [address] Attending Physician: Not on Staff, Attending MD Referring Physician: Rahul CAFE AIDE, Maritza Allergies, Adverse Reactions, Alerts Substance Reaction Severity [...] 5 Refills, Maintenance, 08/06/21 8:30:00 EDT, Tablet, [facility], Partial fill upon patient request if the prescription is for aschedule II opioid drug., 150, cm, 07/23/21 22:44:0... Start Date: 08/06/21 Stop Date: 02/02/22 Status: Ordered lidocaine 5% topical ointment 1 application, Topically, 3 times a day, # 50 Gm, 2 Refills, Maintenance, 09/19/21 14:33:00 EST, Ointment, [facility], Partial [...] 0 Refills, Maintenance, 11/29/21 10:02:00 EST, Tablet, [facility], Partial fill upon patient request., 12/02/21, 150, cm, 11/25/21 9:27:00 EST, [place]... Start Date: 11/29/21 Status: Ordered naloxone 4 mg/0.1 mL nasal spray = 4 mg, Naris, Left, Once, may repeat every 2 to 3 minutes until patient responds, # 2 each, 0 Refills, Soft Stop, 12/13/19 13:32:00 EST, [facility], 166, cm, 12/13/19 12:42:00 [...] capsule, 1 Refills, Maintenance, 12/03/21 9:05:00 EST, [facility], 150, cm, 11/25/21 9:27:00 [...] Active Patent foramen ovale(Confirmed) 06/06/08 Active *BHN/CCA/CP-[facility] [place]-[phone]/Health [facility], active care coordination(Confirmed) [...] on 07/09/17; initial [place]: 14 on 07/09/17 5SOAPP-R: 21 on 07/09/17 6cardiology 2016 cited known PVCs Social History Social History Type Response Tobacco Use: 4 or less cigar ettes(less than 1/4 pack)/day in last 30 days. Sex Female Medical Equipment Implanted Date:01/18/21Target Site:Vagina Description Quantity MRI Company Model SLING SUSPEND FASCIA ERIN 2X 7 - COLO ([id number]) 1 [employer] Jeff Unknown JESSEE:No Information Assigning Authority: FDA
--- OUTSIDE RECORDS SUMMARY | 2023-06-22 17:22 | XMS_ITS | Continuity of Care Document ---
Author Name Unknown Organization [facility] Address [address] [place] [address]- Care Team Providers Care Division Sales Manager Name Role Phone Malki FRANCIS, Shanon Arshad Primary Care Physician Encounter [facility] [place] Date(s): 10/17/20 - 11/16/20 [facility] [address] [place] [id number] Allergies, Adverse Reactions, Alerts Substance Reaction [...] 10/24/20 14:00:00 EST, Route to Pharmacy Electronically, [facility], Partial fill upon patient request if the prescription is for a schedule II opioid... Start Date: 10/24/20 Status: Ordered gabapentin 300 mg oral capsule 900 mg, 3, capsule, By Mouth, 3 times a day, follow previously given instructions for increasing dose, # 270 capsule, Refills 4, Tot. Refills 4, Maintenance, 10/29/20 15:45:00 EST, Route to Pharmacy Electronically, [facility], replaces prio... Start Date: 10/29/20 Stop Date: 03/28/21 Status: Ordered methadone 5 mg oral tablet See Instructions, 1 tab PO in AM 2 tabs in Afternoon and 1 tab @ HS for pain, # 112 tablet, 0 Refills, Maintenance, 10/29/20 13:13:00 EST, Tablet, [facility], Partial fill upon patient request. [...] Active Patent foramen ovale(Confirmed) 06/06/08 Active *BHN/CCA/CP-[facility]-[phone]/Health nursing home, active care coordination(Confirmed) Active Neuropathic [...] Back Pain Scale: 84 on 07/09/17; initial [place]: 14 on 07/09/17 4SOAPP-R: 21 on 07/09/17 Social History Social History Type Response Tobacco Use: 4 or less cigar ettes(less than 1/4 pack)/day in last 30 days. Sex Female
--- OUTSIDE RECORDS SUMMARY | 2023-06-22 17:22 | XMS_ITS | Continuity of Care Document ---
Author Name Unknown Organization [facility] Address [address] [place] [address]- Care Team Providers Care At Home Independent Call Center Agent Name Role Phone Malik FRANCIS, Shanon Arshad Primary Care Physician Encounter [facility] Date(s): 07/05/20 - 08/04/20 [facility] [address] [place] [address]- [facility] Allergies, Adverse Reactions, Alerts Substance [...] 05/15/20 14:07:00 EDT, Route to Pharmacy Electronically, [facility], 149.86, cm, 206:22:00 EDT, Height, 67.73, kg, 04/19/20 8:54:00 ED... Start Date: 05/15/20 Stop Date: 10/12/20 Status: Ordered methadone 5 mg oral tablet See Instructions, 1 tab PO in AM 2 tabs in Afternoon and 1 tab @ HS for pain, # 112 tablet, 0 Refills, Maintenance, 07/27/20 16:56:00 EDT, Tablet, [facility], [...] Patent foramen ovale(Confirmed) 06/06/08 Active *BHN/CCA/CP-[facility]-[phone]/Health half-way, active care coordination(Confirmed) Active Neuropathic pain [...] Back Pain Scale: 84 on 07/09/17; initial [place]: 14 on 07/09/17 4SOAPP-R: 21 on 07/09/17 Social History Social History Type Response Tobacco Use: 4 or less cigar ettes(less than 1/4 pack)/day in last 30 days. Sex Female
--- NOTE | 2023-06-22 19:39 | PC.NURSE ---
Assumed care of patient at 1915. Pt a/o family members at bedside. Reports sudden onset dizziness, numbness, near syncope, mumbled speech once she came too and right sided ear pain. She also notes possible hematuria- she straight caths due to stroke in 2016. protocols order- ekgs, labs, POC. Plan of care ongoing.
[2023-06-22 19:42] LABS: Glucose, Whole Blood 164 mg/dL (60-115)
[2023-06-22 19:49] VITALS: BP 92/53; PULSE 65; RESP 18; TEMP 36.8; O2SAT 100
--- NOTE | 2023-06-22 19:57 | ED.SYNCOPE ---
HPI - Syncope General Chief Complaint: Dizziness Stated Complaint: dizziness, nausea Time Seen by Provider: 06/22/23 18:57 Source: patient Mode of arrival: EMS Limitations: no limitations History of Present Illness HPI narrative: Patient is a 38-year-old female who presents to the emergency department via EMS for evaluation after a syncopal episode today. She reports that she has dizziness at baseline but today her dizziness was noted to be worse. When asked, she does not describe it as a room spinning sensation, she states that she often just gets lightheaded it is a ringing sensation to her ears and and ultimately improves. However, today she states that she syncopized in her had to assist her down to the floor. The at this time she is endorsing mild dizziness, and right ear pain that began after the syncopal episode. She and her deny any head strike. She is not on anticoagulants. Denies chest pain, shortness of breath. She reports a history of CVA in 2016 for which she was evaluated at [facility], she has residual left-sided weakness, ambulates with a cane, and self catheterizes. Related Data Previous Rx's Medication Instructions Recorded acetaminophen 500 mg capsule 1,000 mg PO Q8H PRN pain #30 caps 12/31/22 cyclobenzaprine 5 mg tablet 5 mg PO TID PRN muscle spasm #10 12/31/22 tabs ibuprofen 600 mg tablet 600 mg PO Q6H PRN pain #20 tabs 12/31/22 oxycodone 5 mg tablet 5 mg PO Q6H PRN pain #10 tabs 12/31/22 prednisone 20 mg tablet 60 mg PO DAILY 4 days #12 tabs 12/31/22 cefuroxime axetil 500 mg tablet 500 mg PO BID #13 tabs 06/23/23 Allergies Allergy/AdvReac Type Severity Reaction Status Date / Time No Known Allergies Allergy Verified 12/31/22 11:31 Review of Systems Review of Systems: Constitutional: No weight loss. No fever. No chills. No weakness. No fatigue. Skin: No rash. No itching. Cardiovascular: No chest pain. No chest pressure. No palpitations. No pedal edema. Respiratory: No shortness of breath. No cough. No sputum production. Gastrointestinal: No anorexia. Positive nausea. No vomiting. No diarrhea. No abdominal pain. No blood in stool. Genitourinary: No burning micturition. No urinary frequency. No incontinence. Neurologic: No headache. Positive dizziness. Positive syncope. Positive baseline unilateral weakness. No change in bowel or bladder control. Musculoskeletal: No muscle pain. No back pain. No joint pain. No stiffness. Hematologic: No bleeding. No bruising. Lymphatics: No enlarged lymph nodes. Psychiatric:No depression. No anxiety. Endocrine: No reports of sweating. No cold or heat intolerance. No polyuria. No polydipsia. Yes all other systems are reviewed and are negative [facility] Past Medical History Attestation statement: The following information was validated with the patient. Source: old records reviewed Social History Social History Alcohol intake: former Smoked in Last 30 Days: No Use of substances other than those prescribed or required for medical reasons: Yes Substance Use Type: Marijuana Last Used Substance: Hours (ago) Advance Directives: No Advance Directives Information Provided: No Patient : No Physical Exam Vital Signs: Vital Signs: Last Vital Signs Temp 98.4 F 06/22/23 23:15 Pulse 61 06/22/23 23:15 Resp 16 06/22/23 23:15 BP 107/64 06/22/23 23:15 Pulse Ox 98 06/22/23 23:15 O2 Del Method Room Air 06/22/23 23:15 BMI result Body Mass Index 33.2 Appearance: Alert.?Oriented to person, place and time. No acute distress.?Normal affect. Eyes: Pupils equal, round and reactive to light.? EOMI. No nystagmus. ENT: Pharynx normal. TM normal bilaterally?? Neck: Normal inspection.? Neck supple.??No midline cervical spine tenderness, step-offs, deformities CVS: Heart sounds normal. Normal heart rate and rhythm.? Pulses normal.?? Respiratory: No respiratory distress.? Lung sounds clear to auscultation bilaterally?? Abdomen: Soft and non-tender. Normoactive bowel sounds. .?? Skin: Skin warm and dry.? Normal skin color.? Extremities: No lower extremity edema.? No calf ttp? Neuro: No focal neurological deficit observed, CN II-XII intact, normal sensory observed, normal coordination observed. Level of consciousness: Appropriate for age. Motor strength: right upper extremity 5 /5, left upper extremity 2/5, right lower extremity 5 /5, left lower extremity 2 /5.? Speech: Normal, [id number]-[id number] test: Normal on the right, [id number] test: Normal on the right. Course Reevaluation(s) Reevaluation #1: CBC does not reveal evidence of significant anemia, or thrombocytopenia. CMP overall within normal limits. High sensitive troponin nondetectable, EKG revealing normal sinus rhythm with ventricular rate of 66, normal PA interval, QTC 406, no ST elevation, no ST depression, no T-wave inversion. Trialed meclizine L1 as she is reports that her dizziness had resolved prior to taking the meclizine. Orthostatic vital signs are negative. Urinalysis consistent with urinary tract infection, will treat with ceftriaxone IV, 1 L normal saline. At this time the etiology of her syncopal episode is unclear, will obtain D-dimer Time: 22:49 Reevaluation #2: D-dimer is negative. Reviewed this case with ED attending Dr. Mobley, recommends treatment for urinary tract infection and discharged home. Medications Administered Discontinued Medications Generic Name Dose Route Start Last Admin Trade Name Freq PRN Reason Stop Dose Admin Ceftriaxone Sodium 1 gm/ 50 mls @ 100 mls/hr 06/22/23 23:41 06/23/23 00:49 Sodium Chloride IV 06/23/23 00:10 100 mls/hr ONCE ONE Administration Sodium Chloride 1,000 mls @ 999 mls/hr 06/22/23 23:45 06/23/23 00:49 Ns IV 06/23/23 00:45 999 mls/hr .Q1H1M JUAN Administration Meclizine HCl 25 mg 06/22/23 22:52 06/22/23 23:25 Meclizine Hcl 25 Mg Tablet PO 06/22/23 22:53 25 mg ONCE ONE Administration Medical Decision Making Medical Decision Making [facility] Narrative: Patient is a 38-year-old female with past medical history of CVA, neurogenic bladder who presents to the emergency department for evaluation after a syncopal episode. Based on history and appears as though the episode was not provoked, she has baseline dizziness but was worse in nature today. Will obtain CBC to evaluate for leukocytosis/ anemia, CMP and lipase to evaluate for abnormal electrolytes /abnormal renal function/ abnormal hepatic/biliary function, EKG and troponin to evaluate for ischemia/ACS. CT of the head and Urinalysis. PERC negative, unlikely PE. Differential Diagnosis Differential Diagnoses: The differential diagnosis associated with the presentation includes (Arrhythmia, ACS, PE, vertigo, CVA, orthostatic hypotension) Admission/Observation Consideration of admission/observation: Escalation of care including admission/observation considered (Considered admission for syncopal episode, see course normal for further detail) Lab Data MDM Lab Attestation statement: I reviewed the patient's lab results. (See course narrative for further detail) 06/22/23 21:03 06/22/23 21:03 Labs: Lab Results 06/22/23 06/22/23 06/22/23 Range/Units 19:37 21:03 21:03 WBC 11.1 H (4.8-10.8) X10*3/uL RBC 4.03 L (4.20-5.50) X10*6/uL Hgb 12.5 (12.0-16.0) g/dl Hct 36.2 L (37.0-47.0) % MCV 89.8 (80.0-98.0) fL MCH 31.0 (27.0-33.0) pg MCHC 34.5 (31.0-35.0) g/dl RDW 12.0 (11.0-16.0) % Plt Count 224 (160-400) X10*3/uL MPV 9.6 (9.4-12.3) fL Absolute Nucleated RBC 0.000 (0.0-0.012) X10*3/uL Nucleated RBC % (auto) 0.0 (0.0-0.2) /100WBC PT (11.1-13.3) SEC INR (0.9-1.1) D-Dimer High Sensitivty NG/ML Sodium 140 (135-145) mmol/L Potassium 3.5 (3.3-5.1) mmol/L Chloride 108 (96-108) mmol/L Carbon Dioxide 25 (22-29) mmol/L Anion Gap 11 L (12-20) BUN 12 (9-16) mg/dL Creatinine 0.71 (0.5-1.4) mg/dL Estim Creat Clear Calc 95.5 Estimated GFR > 60 POC Glucose 164 H (60-115) mg/dL Random Glucose 152 H (60-115) mg/dL Calcium 8.9 (8.4-10.2) mg/dL Total Bilirubin 0.4 (0.0-1.0) mg/dL AST 12 (5-31) U/L ALT 8 (0-31) U/L Alkaline Phosphatase 39 (39-117) U/L Troponin I High Sens (<3.5-17.0) ng/L Total Protein 6.2 L (6.5-8.0) g/dL Albumin 3.6 (3.5-5.0) g/dL Lipase 18 (8-78) U/L Urine Color Urine Appearance Urine pH (5.0-9.0) Ur Specific [place] (1.005-1.025) Urine Protein (Neg-Trace) mg/dL Urine Glucose (UA) (Negative) mg/dL Urine Ketones (Negative) mg/dL Urine Blood (Negative) Urine Nitrite (Negative) Ur Leukocyte Esterase (Negative) Urine RBC (0-2) /HPF Urine WBC (0-5) /HPF Ur Squamous Epith Cells (0-2) /HPF Urine Bacteria (None Seen) Hyaline Casts (0-2) /LPF Urine Test (NEGATIVE) 06/22/23 06/22/23 06/22/23 Range/Units 21:03 21:03 23:23 WBC (4.8-10.8) X10*3/uL RBC (4.20-5.50) X10*6/uL Hgb (12.0-16.0) g/dl Hct (37.0-47.0) % MCV (80.0-98.0) fL MCH (27.0-33.0) pg MCHC (31.0-35.0) g/dl RDW (11.0-16.0) % Plt Count (160-400) X10*3/uL MPV (9.4-12.3) fL Absolute Nucleated RBC (0.0-0.012) X10*3/uL Nucleated RBC % (auto) (0.0-0.2) /100WBC PT 13.3 (11.1-13.3) SEC INR 1.1 (0.9-1.1) D-Dimer High Sensitivty < 150 NG/ML Sodium (135-145) mmol/L Potassium (3.3-5.1) mmol/L Chloride (96-108) mmol/L Carbon Dioxide (22-29) mmol/L Anion Gap (12-20) BUN (9-16) mg/dL Creatinine (0.5-1.4) mg/dL Estim Creat Clear Calc Estimated GFR POC Glucose (60-115) mg/dL Random Glucose (60-115) mg/dL Calcium (8.4-10.2) mg/dL Total Bilirubin (0.0-1.0) mg/dL AST (5-31) U/L ALT (0-31) U/L Alkaline Phosphatase (39-117) U/L Troponin I High Sens < 2.7 (<3.5-17.0) ng/L Total Protein (6.5-8.0) g/dL Albumin (3.5-5.0) g/dL Lipase (8-78) U/L Urine Color Yellow Urine Appearance Cloudy Urine pH 5.5 (5.0-9.0) Ur Specific [place] >= 1.030 H (1.005-1.025) Urine Protein Trace (Neg-Trace) mg/dL Urine Glucose (UA) Negative (Negative) mg/dL Urine Ketones Negative (Negative) mg/dL Urine Blood Moderate (2+) H (Negative) Urine Nitrite Positive H (Negative) Ur Leukocyte Esterase Negative (Negative) Urine RBC 0-2 (0-2) /HPF Urine WBC 0-5 (0-5) /HPF Ur Squamous Epith Cells 6-10 (0-2) /HPF Urine Bacteria None Seen (None Seen) Hyaline Casts 11-20 (0-2) /LPF Urine Test (NEGATIVE) 06/22/23 Range/Units 23:23 WBC (4.8-10.8) X10*3/uL RBC (4.20-5.50) X10*6/uL Hgb (12.0-16.0) g/dl Hct (37.0-47.0) % MCV (80.0-98.0) fL MCH (27.0-33.0) pg MCHC (31.0-35.0) g/dl RDW (11.0-16.0) % Plt Count (160-400) X10*3/uL MPV (9.4-12.3) fL Absolute Nucleated RBC (0.0-0.012) X10*3/uL Nucleated RBC % (auto) (0.0-0.2) /100WBC PT (11.1-13.3) SEC INR (0.9-1.1) D-Dimer High Sensitivty NG/ML Sodium (135-145) mmol/L Potassium (3.3-5.1) mmol/L Chloride (96-108) mmol/L Carbon Dioxide (22-29) mmol/L Anion Gap (12-20) BUN (9-16) mg/dL Creatinine (0.5-1.4) mg/dL Estim Creat Clear Calc Estimated GFR POC Glucose (60-115) mg/dL Random Glucose (60-115) mg/dL Calcium (8.4-10.2) mg/dL Total Bilirubin (0.0-1.0) mg/dL AST (5-31) U/L ALT (0-31) U/L Alkaline Phosphatase (39-117) U/L Troponin I High Sens (<3.5-17.0) ng/L Total Protein (6.5-8.0) g/dL Albumin (3.5-5.0) g/dL Lipase (8-78) U/L Urine Color Urine Appearance Urine pH (5.0-9.0) Ur Specific [place] (1.005-1.025) Urine Protein (Neg-Trace) mg/dL Urine Glucose (UA) (Negative) mg/dL Urine Ketones (Negative) mg/dL Urine Blood (Negative) Urine Nitrite (Negative) Ur Leukocyte Esterase (Negative) Urine RBC (0-2) /HPF Urine WBC (0-5) /HPF Ur Squamous Epith Cells (0-2) /HPF Urine Bacteria (None Seen) Hyaline Casts (0-2) /LPF Urine Test NEGATIVE (NEGATIVE) Independent Interpretation I performed an independent interpretation of an: EKG (See course narrative) Radiology Impression Discussion of test interpretation with radiology: I have reviewed the radiologist's reading. Radiologist Impression: CT/CT head/brain wo IV con IMPRESSION: No acute intracranial hemorrhage or mass effect. Independent Historian Clinical information obtained from an independent historian. History obtained from or confirmed by: Spouse (Present at bedside who confirms history) and EMS Discharge Plan Discharge Clinical Impression: Syncope, Urinary tract infection Patient Disposition: Home, Self-Care Instructions: Urinary Tract Infection in Women (ED), Syncope (ED) Additional Instructions: Please contact your primary care provider and arrange for a follow-up visit in 1-2 days. I have sent a prescription for antibiotic to your pharmacy to treat urinary tract infection, please begin taking this tomorrow evening. You may return back to emergency department any new or worsening symptoms or concerns. Prescriptions: New cefuroxime axetil 500 mg tablet 500 mg PO BID Qty: 13 0RF No Action prednisone 20 mg tablet 60 mg PO DAILY 4 Days Qty: 12 0RF ibuprofen 600 mg tablet 600 mg PO Q6H PRN (Reason: pain) Qty: 20 0RF acetaminophen 500 mg capsule 1,000 mg PO Q8H PRN (Reason: pain) Qty: 30 0RF oxycodone 5 mg tablet 5 mg PO Q6H PRN (Reason: pain) Qty: 10 0RF Rx Instructions: Partial Fill upon patient request. cyclobenzaprine 5 mg tablet 5 mg PO TID PRN (Reason: muscle spasm) Qty: 10 0RF Referrals: Physician,Unknown J [Primary Care Provider] -
[2023-06-22 21:07] LABS: Hematocrit 36.2 % (37.0-47.0); Hemoglobin 12.5 g/dl (12.0-16.0); Mean Corpuscular HGB Conc 34.5 g/dl (31.0-35.0); Mean Corpuscular Volume 89.8 fL (80.0-98.0); Mean Platelet Volume 9.6 fL (9.4-12.3); Platelet Count 224 X10*3/uL (160-400); Red Blood Count 4.03 X10*6/uL (4.20-5.50); White Blood Count 11.1 X10*3/uL (4.8-10.8)
[2023-06-22 21:13] LABS: INTERNATIONAL NORM RATIO 1.1 (0.9-1.1); Prothrombin Time 13.3 SEC (11.1-13.3)
[2023-06-22 21:23] LABS: Alanine Aminotransferase 8 U/L (0-31); Albumin Level 3.6 g/dL (3.5-5.0); Alkaline Phosphatase 39 U/L (39-117); Anion Gap 11 (12-20); Aspartate Amino Transferase 12 U/L (5-31); Bilirubin Total 0.4 mg/dL (0.0-1.0); Blood Urea Nitrogen 12 mg/dL (9-16); Calcium 8.9 mg/dL (8.4-10.2); Carbon Dioxide 25 mmol/L (22-29); Chloride 108 mmol/L (96-108); Creatinine Clr Calc Pharmacy 95.5; Estimated Glomerular Filt Rate > 60; Glucose Random 152 mg/dL (60-115); Lipase 18 U/L (8-78); Potassium 3.5 mmol/L (3.3-5.1); Sodium 140 mmol/L (135-145); Total Protein 6.2 g/dL (6.5-8.0)
[2023-06-22 21:32] LABS: Troponin-I High Sensitivity < 2.7 ng/L (<3.5-17.0)
[2023-06-22 23:11] VITALS: BP 107/64; BP 88/53; PULSE 64; PULSE 65
[2023-06-22 23:13] VITALS: BP 104/61; PULSE 62
[2023-06-22 23:15] VITALS: BP 107/64; PULSE 61; RESP 16; TEMP 36.9; O2SAT 98
[2023-06-22] MEDS: Meclizine HCl 25 MG TABLET PO (23:25)
[2023-06-22 23:33] LABS: Appearance Urine Cloudy; Color Urine Yellow; Glucose Urine UA Negative (Negative); Leukocyte Esterase Urine Negative (Negative); Nitrite Urine Positive (Negative); PH 5.5 (5.0-9.0); Specific Gravity - Urine >= 1.030 (1.005-1.025); UMIC TRIGGER UACC YES; Urine Blood Moderate (2+) (Negative); Urine Ketones Negative (Negative); Urine Protein Trace mg/dL (Neg-Trace)
[2023-06-22 23:43] LABS: UPreg QC Valid YES; Urine Pregnancy NEGATIVE (NEGATIVE)
[2023-06-22 23:44] LABS: Bacteria Urine None Seen (None Seen); RBC Urine 0-2 /HPF (0-2); UACC Culture Trigger YES; WBC Urine 0-5 /HPF (0-5)
[2023-06-22 23:56] LABS: D Dimer High Sensitivity < 150 NG/ML
[2023-06-23] MEDS: 0.9 % Sodium Chloride 1,000 ML 999 ML IV (00:49)
[2023-06-23] MEDS: cefTRIAXone sodium 1 GM in 0.9 % Sodium Chloride 50 ML IV (00:49)
== END 2023-06-23 02:37 | disposition home or self-care (01) ==
PROVIDERS: Emergency Medicine; Nurse Practitioner Family; Emergency Provider Internal Medicine
DX: N39.0 Urinary tract infection, site not specified (principal); R42 Dizziness and giddiness; R55 Syncope and collapse; R94.31 Abnormal electrocardiogram [ECG] [EKG]; Z79.899 Other long term (current) drug therapy
CPT/HCPCS: 36415; 70450; 80053; 81001; 81025; 82947; 83690; 84484; 85027; 85379; 85610; 87040; 87086; 93005; 96374; 99285; J0696

== ENCOUNTER 2025-07-18 10:12 | Emergency (ER) | payer OTHER, SELFPAY ==
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
[2025-07-18 10:42] VITALS: BP 134/75; PULSE 77; RESP 16; TEMP 36.8; O2SAT 98; BMI 32.3
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
--- NOTE | 2025-07-18 12:27 | PC.NURSE ---
PT WAS SEEN BY PROVIDER IN [facility]OW[employer] CHAIR. AGREEABLE TO DC PLAN
--- OUTSIDE RECORDS SUMMARY | 2025-07-18 13:24 | XMS_ITS | Clinical Summary ---
Author Organization [facility] Address [address] [place] [address] Phone Care Team Providers Care Card Scraper Name Role Phone Unavailable Primary Care Provider Unavailabl e Allergies Active Allergy Reactions Criticality Noted Date Comments Cephalexin Headache 11/25/2024 Lamotrigine Psychiatric 11/25/2024 Medications acetaminophen (TYLENOL) 500 mg tablet Take 1 tablet (500 mg total) by mouth every 6 (six) hours if needed for mild pain. Active diclofenac (VOLTAREN) 1 % topical gel Apply 2 g topically 4 (four) times a day. Active gentamicin (GARAMYCIN) 0.1 % cream Apply 40 Applications topically 1 (one) time each day. Active naloxone (NARCAN) 4 mg/0.1 mL nasal spray Administer 1 each (4 mg total) into affected nostril(s) 1 (one) time. Give 4 mg (1 spray) into one nostril. May repeat every 2-3 minutes if needed, alternating nostrils, until medical assistance becomes available. Active albuterol HFA (PROAIR HFA ; PROVENTIL HFA ; VENTOLIN HFA) 90 mcg/actuation inhaler Inhale 2 puffs by mouth every 6 (six) hours if needed for wheezing. Active tiZANidine (ZANAFLEX) 2 mg tablet Take 1 tablet (2 mg total) by mouth every 6 (six) hours if needed for muscle spasms. Active Active Problems Problem Noted Date Diagnosed Date Headache 11/25/2024 Back pain 11/25/2024 Depression 11/25/2024 Mild vitamin D deficiency 11/25/2024 Social History Tobacco Use Types Packs/Day Years Used Date Smoking Tobacco: Never Assessed Comments Unknown Sex and Gender Information Value Date Recorded Sex Assigned at Not on file Legal Sex Female 7:30 AM EST Gender Identity Not on file Sexual Orientation Not on file Last Filed Vital Signs Vital Sign Reading Time Taken Comments Blood Pressure - - Pulse - - Temperature - - Respiratory Rate - - Oxygen Saturation - - Inhaled Oxygen Concentration - - Weight 72.6 kg (160 lb) 04/04/2025 10:48 AM EDT Height 149.9 cm (4' 11 ) 04/04/2025 10:48 AM EDT Body Mass Index 32.32 04/04/2025 10:48 AM EDT Plan of Treatment Upcoming Encounters Date Type Department Care Team (Late st Contact Info) Description 08/09/2025 1:45 PM EDT Office Visit Orthopedic Surgery - [place] [address] [facility] [address] [place] [id number] Darian Santiago DPM [address] [facility] [place] [address] [place] [id number] Health Maintenance Due Date Last Done Comments Cervical Cancer Screening: Pap Smear 2007 HPV Vaccines (2 - 3-dose series) 12/19/2008 11/21/2008 Pneumococcal Vaccine: Pediatrics (0 to 5 Years) and At-Risk Patients (6 to 49 Years) (2 of 2 - PCV) 02/20/2015 02/20/2014 DTaP,Tdap,and Td Vaccines (2 - Td or Tdap) 08/13/2021 08/13/2011 HIV Screening 08/23/2024 Hepatitis C Screening 08/23/2024 Medicare Annual Wellness Visit 08/23/2024 Social Influencers of Health Screening 08/23/2024 Depression Screening 10/19/2024 COVID-19 Vaccine (3 - season) 2025 03/12/2021, 02/19/2021 Influenza Vaccine (#1) 2025 , 08/13/2021, 01/17/2016, Additional history exists Hepatitis B Vaccines Completed 06/14/2013, 12/10/2012, 10/01/2012 HIB Vaccines Aged Out No longer eligi ble based on patient's age to complete this topic Hepatitis A Vaccines Aged Out No long er eligible based on patient's age to complete this topic IPV Vaccines Aged Out No longer eligi ble based on patient's age to complete this topic MMR Vaccines Aged Out No longer eligi ble based on patient's age to complete this topic Meningococcal ACWY Vaccine Aged Out N o longer eligible based on patient's age to complete this topic Meningococcal B Vaccine Aged Out No l onger eligible based on patient's age to complete this topic RSV Immunization Patients Under 20 months Aged Out No longer eligible based on patient's age to complete this topic Varicella Vaccines Aged Out No longer eligible based on patient[place] [id number] [employer] MEDICARE Member Subscriber Plan / Payer (Ef fective 2016-Present) Name:OSMAN PAGE Relation to Subscriber:Self Name:Osman Page Payer ID:[id number] Group ID:[id number] Type:Not on file Address: [address] [place] [phone]
--- OUTSIDE RECORDS SUMMARY | 2025-07-18 13:24 | XMS_ITS | Encounter Summary ---
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 Name Role Phone Unavailable Primary Care Provider Unavailabl e Encounter Details Date Type Department Care Team (Late st Contact Info) Description 03/02/2025 Lab Requisition [facility] [address] [facility] [place] [address] Kori Swenson PA [address] [facility] [address] [place] [address] Urinary tract infection, site not specified Social History Tobacco Use Types Packs/Day Years Used Date Smoking Tobacco: Never Assessed Comments Unknown Sex and Gender Information Value Date Recorded Sex Assigned at Not on file Legal Sex Female 7:30 AM EST Gender Identity Not on file Sexual Orientation Not on file documented as of this encounter Plan of Treatment Upcoming Encounters Date Type Department Care Team (Late st Contact Info) Description 08/09/2025 1:45 PM EDT Office Visit Orthopedic Surgery - [place] [address] [id number] Darian Santiago, [place] [address] [address] documented as of this encounter Procedures Procedure Name Priority Date/Time Associated Diagnosis Comments CULTURE URINE Routine 03/02/2025 9:15 AM EDT Urinary tract infection, site not specified documented in this encounter Results * (ABNORMAL) Culture urine (03/02/2025 9:15 AM EDT) Culture, Urine >100,000 CFU/mL Escherichia coli(A) VASILE 03/04/2025 11:02 AM EDT [facility] Urine Urine specimen obtained by clean catch procedure / Unknown 03/02/2025 9:15 AM EDT 03/02/2025 1:43 PM EDT Narrative Organism Antibiotic Method Susceptibility Escherichia coli Amoxicillin/Clavulanate VASILE 4 ug/ml: Susceptible Escherichia coli Ampicillin/Sulbactam VASILE 4 ug/ml: Susceptible Escherichia coli Piperacillin/Tazobactam VASILE <=4 ug/ml: Susceptible Escherichia coli Cefazolin (Urine) VASILE <=1 ug/ml: Susceptible Escherichia coli Cefoxitin VASILE <=4 ug/ml: Susceptible Escherichia coli Ceftazidime VASILE <=0.5 ug/ml: Susceptible Escherichia coli Ceftriaxone VASILE <=0.25 ug/ml: Susceptible Escherichia coli Cefepime VASILE <=0.12 ug/ml: Susceptible Escherichia coli Meropenem VASILE <=0.25 ug/ml: Susceptible Escherichia coli Amikacin VASILE 2 ug/ml: Susceptible Escherichia coli Gentamicin VASILE <=1 ug/ml: Susceptible Escherichia coli Ciprofloxacin VASILE <=0.06 ug/ml: Susceptible Escherichia coli Levofloxacin VASILE <=0.12 ug/ml: Susceptible Escherichia coli Nitrofurantoin VASILE <=16 ug/ml: Susceptible Escherichia coli Trimethoprim/Sulfamethoxazole VASILE <=20 ug/ml: Susceptible us [facility] MICROBIOLOGY - GENERAL ORD ERABLES Final Result [facility] [address] [place] [address], documented in this encounter Visit Diagnoses Diagnosis Urinary tract infection, site not specified documented in this encounter
--- OUTSIDE RECORDS SUMMARY | 2025-07-18 13:24 | XMS_ITS | Clinical Summary ---
Author Organization [facility] Address [address] [place] [address] Phone Care Team Providers Care Treating Machine Operator Name Role Phone Jenelle Melendez Primary Care Provider Un available Allergies No known active allergies Medications dronabinol (MARINOL) 2.5 MG capsule Take 2.5 mg by mouth 3 (three) times a day. Active CANNABIDIOL, CBD, EXTRACT ORAL Take by mouth. Active Social History Tobacco Use Types Packs/Day Years Used Date Smoking Tobacco: Former Smokeless Tobacco: Never Education Answer Date Recorded Are you interested in more education? Not on murphy e 02/13/2023 Are you concerned about learning? Not on file 02/13/2023 No 02/13/2023 No 02/13/2023 Digital Access Answer Date Recorded No 03/14/2023 No 03/14/2023 No 03/14/2023 Reliable internet access at home? Not on file 03/14/2023 Device with a working camera? Not on file Comments Unknown Sex and Gender Information Value Date Recorded Sex Assigned at Not on file Legal Sex Female 1:14 PM EST Gender Identity Not on file Sexual Orientation Not on file Last Filed Vital Signs Vital Sign Reading Time Taken Comments Blood Pressure 117/75 02/11/2019 8:42 AM EDT Pulse 71 02/11/2019 8:42 AM EDT Temperature 36.2 C (97.2 F) 02/11/2019 8:42 AM EDT Respiratory Rate - - Oxygen Saturation 97% 02/11/2019 8:42 AM EDT Inhaled Oxygen Concentration - - Weight 82.5 kg (181 lb 12.8 oz) 02/11/2019 8:42 AM EDT Height - - Body Mass Index - - Plan of Treatment Health Maintenance Due Date Last Done Comments Adult Td,Tdap Booster 1986 DEPRESSION SCREENING 1998 SMOKING Hx and SMOKELESS TOBACCO SCREENING 1999 HEPATITIS C SCREENING 02/09/2004 HIV ONE-TIME SCREENING (18-6 5 YEARS) 02/09/2004 PAP SMEAR 2007 INFLUENZA VACCINE (#1) 2025 COVID-19 VACCINE (2024-2 6 season) 2025 03/12/2021, 02/19/2021 HEPATITIS A VACCINES Aged Out No long er eligible based on patient's age to complete this topic HIB VACCINES Aged Out No longer eligi ble based on patient's age to complete this topic MENINGOCOCCAL VACCINES (ACWY) Aged Out No longer eligible based on patient's age to complete this topic MENINGOCOCCAL VACCINES (B) Aged Out N o longer eligible based on patient's age to complete this topic PNEUMOCOCCAL VACCINES (0-49 years) Aged Out No longer eligible b ased on patient's age to complete this topic Medical Devices Not on file Insurance [facility] MEDICARE REPLACEMENT [place] [id number] [facility] MEDICARE REPLACEMENT MEDICARE REPLACEMENT MEDICARE REPLACEMENT MEDICARE REPLACEMENT MEDICARE REPLACEMENT [place] [id number] MEDICARE REPLACEMENT MEDICARE REPLACEMENT [facility] ONE CARE MEDICARE REPLACEMENT Care Teams Treating Machine Operator Relationship Specialty Start Date End Date Jenelle Melendez MBBS [address] [place] [id number] PCP - General Unknown Provider Specialty 12/08/18 Additional Source Comments The information contained in this document represents components of the legal health record. It is not the complete legal health record.[facility]
== END 2025-07-18 12:28 | disposition home or self-care (01) ==
LOC: HO.ED 12:19
PROVIDERS: Emergency Provider Emergency Medicine
DX: S13.4XXA Sprain of ligaments of cervical spine, initial encounter (principal); S39.012A Strain of muscle, fascia and tendon of lower back, initial encounter; V49.49XA Driver injured in collision with other motor vehicles in traffic accident, initial encounter; Y93.9 Activity, unspecified; Y92.9 Unspecified place or not applicable
CPT/HCPCS: 72040; 72100; 99281; 99283

== ENCOUNTER → 2025-07-18 10:46 | Outpatient (BNV) | payer OTHER, SELFPAY | PROVIDERS: Emergency Provider Emergency Medicine; Visit Provider Radiology Diagnostic Radiology | DX: M54.2 Cervicalgia (principal); M54.50 Low back pain, unspecified | CPT/HCPCS: 72040; 72100 ==